=== PATIENT | male | born 1960 | race Caucasian/White ===

== ENCOUNTER → 2016-07-05 | Outpatient (CLI) | payer OTHER ==
--- NOTE | 2016-07-06 07:19 | US ---
EXAMINATION TYPE: US carotid duplex BILAT DATE OF EXAM: 07/05/2016 4:00 PM COMPARISON: NONE CLINICAL HISTORY: I65.29 Occlusion stenosis of unspecified artery. Pt states episode of blurry visi on EXAM MEASUREMENTS: RIGHT: Peak Systolic Velocity (PSV) cm/sec ----- Right CCA: 122.6 ----- Right ICA: 94.3 ----- Right ECA: 123.9 ICA/CCA ratio: 0.8 RIGHT: End Diastole cm/sec ----- Right CCA: 26.7 ----- Right ICA: 35.9 ----- Right ECA: 16.3 LEFT: Peak Systolic Velocity (PSV) cm/sec ----- Left CCA: 131.6 ----- Left ICA: 104.4 ----- Left ECA: 104.4 ICA/CCA ratio: 0.8 LEFT: End Diastole cm/sec ----- Left CCA: 33.2 ----- Left ICA: 37.1 ----- Left ECA: 21.5 VERTEBRALS (direction of flow): Right Vertebral: Antegrade Left Vertebral: Antegrade IMPRESSION: No significant stenosis seen/ Incidental finding right thyroid nodule= 2.1 cm Criteria for Assigning % of Stenosis / Diameter reduction (Estimation based on the indirect measurements of the internal carotid artery velocities (ICA PSV). 1. Normal (no stenosis)=ICA PSV < 125 cm/s: ratio < 2.0: ICA EDV<40 cm/s. 2. Less than 50% stenosis=ICA PSV < 125 cm/s: ratio < 2.0: ICA EDV<40 cm/s. 3. 50 to 69% stenosis=ICA PSV of 125 to 230 cm/s: ration 2.0 ? 4.0: ICA EDV 40-100 cm/s. 4. Greater than 70% stenosis to near occlusion= ICA PSV > 230 cm/s: ratio > 4.0: ICA EDV > 100 cm/s. 5. Near occlusion= ICA PSV velocities may be low or undetectable: variable ratio and ICA EDV. 6. Total occlusion=unable to detect flow.
== END | disposition home or self-care (01) ==
LOC: RADUSWWP 15:28
PROVIDERS: ATTEND Internal Medicine Interventional Cardiology
DX: I65.29 Occlusion and stenosis of unspecified carotid artery (principal)
CPT/HCPCS: 93880

== ENCOUNTER 2016-07-09 14:52 | Emergency (ER) | payer OTHER ==
[2016-07-09 14:58] VITALS: RESP 18
[2016-07-09] MEDS ORDERED: DILTIAZEM 5 MG/ML 5 ML VIAL IVP STA (15:13)
[2016-07-09 15:51] LABS: Basophils # (A) 0.1 k/uL (0-0.2); Basophils % (A) 2 %; CH 31.2; CHCM 33.9; Eosinophils # (A) 0.2 k/uL (0-0.7); Eosinophils % (A) 3 %; HCT 43.9 % (39.0-53.0); HDW 2.61; HGB 14.3 gm/dL (13.0-17.5); Luc # (Auto) 0.07; Luc % (Auto) 1; Lymphocytes # (A) 1.1 k/uL (1.0-4.8); Lymphocytes % (A) 15 %; MCH 30.2 pg (25.0-35.0); MCHC 32.6 g/dL (31.0-37.0); MCV 92.7 fL (80.0-100.0); Mean Platelet Volume 8.4; Monocytes # (A) 0.5 k/uL (0-1.0); Monocytes % (A) 6 %; Neutrophils # (A) 5.7 k/uL (1.3-7.7); Neutrophils % (A) 74 %; RBC 4.73 m/uL (4.30-5.90); RDW 12.9 % (11.5-15.5); WBC 7.7 k/uL (3.8-10.6); WBC (Perox) 7.87
--- NOTE | 2016-07-09 15:54 | XR ---
EXAMINATION TYPE: XR chest 1V portable DATE OF EXAM: 07/09/2016 3:48 PM COMPARISON: 02/27/2016 HISTORY: Chest pain TECHNIQUE: Single frontal view of the chest is obtained. FINDINGS: Heart and mediastinum are normal. Lungs are clear. Diaphragm is normal. Old left clavicle fracture is noted. There are chest leads. IMPRESSION: No active cardiopulmonary disease. No change.
[2016-07-09 16:00] LABS: INR 1.5 (<1.1); Prothrombin Time 14.8 sec (9.0-12.0)
[2016-07-09] MEDS ORDERED: DILTIAZEM 125 MG in SODIUM CHLORIDE 0.9% 100 ML IV SCH (16:00)
[2016-07-09 16:07] LABS: ALT 43 U/L (21-72); AST 24 U/L (17-59); Alkaline Phosphatase 96 U/L (38-126); Anion Gap 14 mmol/L; Blood Urea Nitrogen 22 mg/dL (9-20); Calcium 9.4 mg/dL (8.4-10.2); Carbon Dioxide 20 mmol/L (22-30); Chloride 109 mmol/L (98-107); Glucose 86 mg/dL (74-99); Non-African American GFR(MDRD) >60 (>60 ml/min/1.73 sqM); Potassium 4.4 mmol/L (3.5-5.1); Sodium 143 mmol/L (137-145); Total Bilirubin 1.7 mg/dL (0.2-1.3)
[2016-07-09 16:10] LABS: Creatine Kinase 70 U/L (55-170)
[2016-07-09 16:22] LABS: Creatine Kinase MB 0.6 ng/mL (0.0-2.4); Troponin I <0.012 ng/mL (0.000-0.034)
[2016-07-09] MEDS ORDERED: NITROGLYCERIN SL TABS 0.4 MG TAB SUBLINGUAL PRN (16:57)
--- NOTE | 2016-07-09 17:00 | ED ---
Arrhythmia/Palpitations HPI - General Chief Complaint: Arrhythmia/Palpitations Stated Complaint: chest pain Time Seen by Provider: 07/09/16 15:12 Source: patient, RN notes reviewed Mode of arrival: wheelchair Limitations: no limitations - History of Present Illness MD Complaint: rapid heart beat -: hour(s) Context: occurred during rest Arrhythmia History: atrial fibrillation, on anti-coagulants Associated Symptoms: shortness of breath - Related Data Home Medications Medication Instructions Recorded Confirmed Warfarin Sodium [Coumadin] 5 mg PO HS 02/27/16 07/09/16 Previous Rx's Medication Instructions Recorded Metoprolol Tartrate [Lopressor] 50 mg PO BID #60 tab 02/28/16 Allergies Allergy/AdvReac Type Severity Reaction Status Date / Time No Known Allergies Allergy Verified 07/09/16 15:15 Review of Systems ROS Statement: Those systems with pertinent positive or pertinent negative responses have been documented in the HPI. ROS Other: All systems not noted in ROS Statement are negative. Constitutional: Denies: fever, chills, weakness Respiratory: Reports: dyspnea. Denies: cough Cardiovascular: Reports: palpitations. Denies: chest pain, edema, syncope Gastrointestinal: Denies: abdominal pain, nausea, vomiting Genitourinary: Denies: dysuria, frequency, hematuria Musculoskeletal: Denies: back pain Skin: Denies: rash Neurological: Denies: headache Past Medical History Past Medical History: Atrial Fibrillation, Pneumonia Additional Past Medical History / Comment(s): 20 years ago - collapsed lung, chest tube, PNE YEARS AGO, MIGRAINES WHEN YOUNGER History of Any Multi-Drug Resistant Organisms: None Reported Past Surgical History: No Surgical Hx Reported Additional Past Surgical History / Comment(s): C/T PLACEMENT Past Anesthesia/Blood Transfusion Reactions: No Reported Reaction Past Psychological History: No Psychological Hx Reported Additional Psychological History / Comment(s): PT LIVES ALONE, NO SERVICE, 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 PT IS INDEPENDANT AND NO OUTSIDE SERVICES. Smoking Status: Never smoker Past Alcohol Use History: Occasional Past Drug Use History: None Reported - Past Family History Father Family Medical History: Unable to Obtain Additional Family Medical History / Comment(s): . Mother Family Medical History: Deep Vein Thrombosis (DVT) General Exam Limitations: no limitations General appearance: alert, in no apparent distress Head exam: Present: atraumatic, normocephalic Eye exam: Present: normal appearance. Absent: scleral icterus, conjunctival injection ENT exam: Present: normal oropharynx Neck exam: Present: normal inspection, full ROM Respiratory exam: Present: normal lung sounds bilaterally. Absent: respiratory distress, wheezes, rales, rhonchi Cardiovascular Exam: Present: tachycardia, irregular rhythm, normal heart sounds. Absent: systolic murmur, diastolic murmur, rubs, gallop GI/Abdominal exam: Present: soft. Absent: distended, tenderness, guarding, rebound Extremities exam: Present: normal inspection, normal capillary refill. Absent: pedal edema, calf tenderness Back exam: Present: normal inspection. Absent: CVA tenderness (R), CVA tenderness (L) Neurological exam: Present: alert Skin exam: Present: warm, dry, intact, normal color. Absent: rash Course Vital Signs 07/09/16 07/09/16 14:55 17:22 Temperature 98.0 F 98.2 F Pulse Rate 79 67 Respiratory 18 18 Rate Blood Pressure 141/93 125/80 O2 Sat by Pulse 91 L Oximetry EKG Findings - EKG Results: EKG: interpreted by SEGUNDO, normal axis EKG shows: atrial fibrillation (Rate approximately 125 bpm) - Blocks, [place], Hypertrophy, ST Abn: Repolarization changes or abnormalities: nonspecific abnormality, ST segment, and/or T wave Medical Decision Making - Medical Decision Making This patient is a 55-year-old man who presents with a rapid ventricular rate for his atrial fibrillation. He did receive Cardizem here and following that was feeling better area stated that all of his symptoms had resolved. He does remain in A. fib but with a rate in the 60s to 80s. He did request to be discharged. Discussed with the patient that his INR is a touch low at 1.5 and recommended he take an extra dose of his Coumadin. Patient also to discuss with cardiology. Discussed return parameters. - Lab Data Result diagrams: 07/09/16 15:30 07/09/16 15:30 Lab Results 07/09/16 07/09/16 07/09/16 Range/Units 15:30 15:30 15:30 WBC 7.7 (3.8-10.6) k/uL RBC 4.73 (4.30-5.90) m/uL Hgb 14.3 (13.0-17.5) gm/dL Hct 43.9 (39.0-53.0) % MCV 92.7 (80.0-100.0) fL MCH 30.2 (25.0-35.0) pg MCHC 32.6 (31.0-37.0) g/dL RDW 12.9 (11.5-15.5) % Plt Count 308 (150-450) k/uL Neutrophils % 74 % Lymphocytes % 15 % Monocytes % 6 % Eosinophils % 3 % Basophils % 2 % Neutrophils # 5.7 (1.3-7.7) k/uL Lymphocytes # 1.1 (1.0-4.8) k/uL Monocytes # 0.5 (0-1.0) k/uL Eosinophils # 0.2 (0-0.7) k/uL Basophils # 0.1 (0-0.2) k/uL PT (9.0-12.0) sec INR (<1.1) APTT (22.0-30.0) sec Sodium 143 (137-145) mmol/L Potassium 4.4 (3.5-5.1) mmol/L Chloride 109 H (98-107) mmol/L Carbon Dioxide 20 L (22-30) mmol/L Anion Gap 14 mmol/L BUN 22 H (9-20) mg/dL Creatinine 0.88 (0.66-1.25) mg/dL Est GFR (MDRD) Af Amer >60 (>60 ml/min/1.73 sqM) Est GFR (MDRD) Non-Af >60 (>60 ml/min/1.73 sqM) Glucose 86 (74-99) mg/dL Calcium 9.4 (8.4-10.2) mg/dL Magnesium 2.0 (1.6-2.3) mg/dL Total Bilirubin 1.7 H (0.2-1.3) mg/dL AST 24 (17-59) U/L ALT 43 (21-72) U/L Alkaline Phosphatase 96 (38-126) U/L Total Creatine Kinase 70 (55-170) U/L CK-MB (CK-2) 0.6 (0.0-2.4) ng/mL CK-MB (CK-2) Rel Index 0.9 Troponin I <0.012 (0.000-0.034) ng/mL Total Protein 7.0 (6.3-8.2) g/dL Albumin 4.2 (3.5-5.0) g/dL 07/09/16 Range/Units 15:30 WBC (3.8-10.6) k/uL RBC (4.30-5.90) m/uL Hgb (13.0-17.5) gm/dL Hct (39.0-53.0) % MCV (80.0-100.0) fL MCH (25.0-35.0) pg MCHC (31.0-37.0) g/dL RDW (11.5-15.5) % Plt Count (150-450) k/uL Neutrophils % % Lymphocytes % % Monocytes % % Eosinophils % % Basophils % % Neutrophils # (1.3-7.7) k/uL Lymphocytes # (1.0-4.8) k/uL Monocytes # (0-1.0) k/uL Eosinophils # (0-0.7) k/uL Basophils # (0-0.2) k/uL PT 14.8 H (9.0-12.0) sec INR 1.5 (<1.1) APTT 28.0 (22.0-30.0) sec Sodium (137-145) mmol/L Potassium (3.5-5.1) mmol/L Chloride (98-107) mmol/L Carbon Dioxide (22-30) mmol/L Anion Gap mmol/L BUN (9-20) mg/dL Creatinine (0.66-1.25) mg/dL Est GFR (MDRD) Af Amer (>60 ml/min/1.73 sqM) Est GFR (MDRD) Non-Af (>60 ml/min/1.73 sqM) Glucose (74-99) mg/dL Calcium (8.4-10.2) mg/dL Magnesium (1.6-2.3) mg/dL Total Bilirubin (0.2-1.3) mg/dL AST (17-59) U/L ALT (21-72) U/L Alkaline Phosphatase (38-126) U/L Total Creatine Kinase (55-170) U/L CK-MB (CK-2) (0.0-2.4) ng/mL CK-MB (CK-2) Rel Index Troponin I (0.000-0.034) ng/mL Total Protein (6.3-8.2) g/dL Albumin (3.5-5.0) g/dL Disposition Clinical Impression: Atrial fibrillation with RVR Disposition: ADMITTED IP TO THIS HOSP Condition: Fair Instructions: Atrial Fibrillation (ED) Referrals: Bertha Olea MD [Primary Care Provider] - 1-2 days
[2016-07-09 17:23] VITALS: BP 125/80; PULSE 67; TEMP 98.2
[2016-07-09] MEDS ORDERED: WARFARIN 5 MG TAB PO SCH (21:00)
[2016-07-09] MEDS ORDERED: METOPROLOL TARTRATE 50 MG TAB PO SCH (21:00)
[2016-07-10] MEDS ORDERED: ASPIRIN 325 MG TAB PO SCH (09:00)
== END 2016-07-09 17:22 | disposition other institution (70) ==
LOC: EC 14:52
DX: I48.91 Unspecified atrial fibrillation (principal); Z79.01 Long term (current) use of anticoagulants; Z79.899 Other long term (current) drug therapy
CPT/HCPCS: 36415; 71010; 80053; 82550; 82553; 83735; 84484; 85025; 85610; 85730; 93005; 96365; 96366; 96376; 99285

== ENCOUNTER 2016-09-20 05:52 | Day surgery (SDC) | payer OTHER ==
[2016-09-20 06:38] LABS: Basophils # (A) 0.1 k/uL (0-0.2); Basophils % (A) 1 %; CH 30.6; CHCM 33.8; Eosinophils # (A) 0.3 k/uL (0-0.7); Eosinophils % (A) 5 %; HCT 41.6 % (39.0-53.0); HDW 2.55; HGB 14.3 gm/dL (13.0-17.5); Luc # (Auto) 0.11; Luc % (Auto) 2; Lymphocytes # (A) 1.2 k/uL (1.0-4.8); Lymphocytes % (A) 20 %; MCH 31.1 pg (25.0-35.0); MCHC 34.3 g/dL (31.0-37.0); MCV 90.8 fL (80.0-100.0); Mean Platelet Volume 7.6; Monocytes # (A) 0.4 k/uL (0-1.0); Monocytes % (A) 7 %; Neutrophils # (A) 3.7 k/uL (1.3-7.7); Neutrophils % (A) 65 %; RBC 4.59 m/uL (4.30-5.90); RDW 13.3 % (11.5-15.5); WBC 5.7 k/uL (3.8-10.6); WBC (Perox) 5.58
[2016-09-20 06:43] LABS: INR 3.9 (<1.1); Prothrombin Time 37.7 sec (9.0-12.0)
[2016-09-20] MEDS: SODIUM CHLORIDE 0.9% 1,000 ML IV SCH (06:50)
[2016-09-20] MEDS ORDERED: ePHEDrine 50 MG/ML 1 ML AMP ONE (07:21)
[2016-09-20] MEDS ORDERED: LIDOCAINE 1% INJ 10MG/ML (20 ML MDV) ONE (07:21)
[2016-09-20] MEDS ORDERED: PROTAMINE SULFATE 10 MG/ML 5 ML VIAL IV ONE (07:21)
[2016-09-20] MEDS ORDERED: SUCCINYLCHOLINE CHLORIDE 100 MG/5 ML SYR IV ONE (07:21)
[2016-09-20] MEDS ORDERED: ISOPROTERENOL 250 MCG/1.25 ML SYR IV ONE (07:21)
[2016-09-20] MEDS ORDERED: MIDAZOLAM 2 MG/2 ML VIAL ONE (07:21)
[2016-09-20] MEDS ORDERED: PROPOFOL 10 MG/ML 20 ML VIAL IV ONE (07:21)
[2016-09-20] MEDS ORDERED: ATROPINE SULFATE 0.1 MG/ML 10ML SYRINGE ONE (07:21)
[2016-09-20] MEDS ORDERED: HEPARIN SODIUM,PORCINE 5,000 UNIT/ML 1 ML VIAL ONE (07:21)
[2016-09-20] MEDS ORDERED: fentaNYL (PF) 50 MCG/ML 2 ML AMP ONE (07:21)
[2016-09-20 07:27] LABS: Anion Gap 8 mmol/L; Blood Urea Nitrogen 23 mg/dL (9-20); Calcium 9.1 mg/dL (8.4-10.2); Carbon Dioxide 25 mmol/L (22-30); Chloride 106 mmol/L (98-107); Glucose 98 mg/dL (74-99); Non-African American GFR(MDRD) >60 (>60 ml/min/1.73 sqM); Sodium 139 mmol/L (137-145)
[2016-09-20] MEDS ORDERED: LIDOCAINE 2% INJ 20 MG/ML SQ ONE (08:14)
[2016-09-20] MEDS ORDERED: HEPARIN SODIUM,PORCINE/D5W PMX 25,000 UNIT in DEXTROSE/WATER 1 500ML.BAG IV ONE (08:36)
[2016-09-20] MEDS ORDERED: ACETAMINOPHEN TAB 325 MG TAB PO PRN (11:04)
[2016-09-20] MEDS ORDERED: ACETAMINOPHEN IV (For NPO) 1,000 MG in EMPTY BAG 1 BAG IVPB ONE (11:04)
[2016-09-20] MEDS ORDERED: HYDROcodone/APAP 5-325MG 1 EACH TAB PO PRN (11:04)
[2016-09-20] MEDS ORDERED: IOHEXOL 350 MG/ML 100 ML BOTTLE INJ ONE (11:23)
--- NOTE | 2016-09-20 11:41 | P.PCN ---
Preoperative Diagnosis: Procedure Diagnostic EP study followed by pulmonary vein isolation, cryoablation. Indication for procedure Recurrent paroxysmal atrial fibrillation, sick sinus syndrome sinus bradycardia in the 40s-50s Unable to tolerate antiarrhythmic drug therapy Therapeutic anticoagulation on Coumadin Procedure details General anesthesia Venous sheaths in the right and left femoral veins 5-[place]i arterial for hemodynamic monitoring and sampling. Heparin infusion and bolus given. ACT maintained above 300. Patient remained stable through the procedure. Sheaths removed at the end of the procedure after protamine Diagnostic catheters in the high right atrium, His bundle area, RV, coronary sinus Later intracardiac echo catheter for visualizing interatrial septum and the pulmonary veins and pericardium Transseptal access to the left atrium using 55 heart span,, 60 cm Exchange wire Flex sheath for cryoablation placed under fluoroscopic guidance Catheter with cryo-balloon placed in left atrium Pulmonary venous angiogram performed for each occlusion to document complete occlusion with cryo-balloon, prior to cryoablation Pulmonary veins were isolated in the following sequence: Left superior pulmonary vein followed by left inferior pulmonary vein followed by right superior and right inferior pulmonary veins. Phrenic nerve stimulation above the right pulmonary veins to assess diaphragmatic contractions, manually as well as with diaphragmatic signals Integrity of the phrenic nerve checked after each cryoablation for the right- sided veins and at the very end of the procedure Diagnostic EP study performed on and off Isuprel Sinus cycle length 1350 ms, ID interval 89 ms, QRS 99 ms, QT interval 500 ms, AH 56, HV 30 Sinus recovery times at 600 504 100 ms were 2048, 2087 and 889 ms Corrected sinus node recovery times a prolonged VA Wenckebach block 390 ms. AV node Wenckebach block from the coronary sinus 400 ms, improved on Isuprel to 280 ms AV node ERP from the coronary sinus 600/320 ms and 600/320/340 ms High right atrial pacing on Isuprel, atrial fibrillation induced and electrical cardioversion performed. Left and right transseptal catheterization performed. Right atrial pressures 21 /15 mmHg and LA pressures 23/10 mmHg Cryoablation of the left superior pulmonary veins Single application for 240 seconds. Parameters achieved were -30C and 28 seconds and -40C at 65 seconds and peak negative temperature was -46C. Thaw time 8.4 seconds. Isolation visualized during cryoablation using achieve circular catheter Cryoablation of the left inferior pulmonary veins Single application, complete isolation achieved in 105 sec, total application time 240 seconds Parameters achieved: -30C at 28 seconds, -40C at 60 seconds Peak negative temperature -48C. Thaw time 9.3 seconds Vein was completely isolated Cryoablation of the right inferior pulmonary vein, multiple repositionings required, hockey-stick approach also used. First prior application aborted at 39 seconds since -27C achieved at 39 seconds Second cryo-application of 120 seconds. Parameters achieved were -24C at 30 seconds and -30 at 90 seconds. Therefore aborted at 2 minutes. Third application of 180 seconds, -30C at 30 seconds and -40 at 88 seconds with a peak negativity of -43C. But the thaw time was 5 seconds Therefore afford application was applied after ensuring that all remained potentials were still present. This was performed after the right superior vein was successfully isolated thereby allowing for a delay in time For the application of 180 seconds. Excellent parameters achieved including - 30 and 34 seconds and -36C at 60 seconds and a peak negative temperature of -41 /2. Thaw time of 9 seconds Vein was completely isolated Cryoablation of right superior pulmonary vein. First application of 120 seconds prematurely terminated. Parameters achieved -30C at 33 seconds and -37 C at 100 seconds with a peak negative temperature of -38C. Thaw time 8.1 seconds Second application of 240 seconds did parameters achieved included -30C 25 seconds and -40C at 40 seconds and peak negativity at -55C. Thaw time of 12 seconds Complete isolation documented Phrenic nerve interrogated during and at the end of the procedure. Phrenic nerve intact Patient tolerated the procedure well without any acute complications he was extubated and transferred to the recovery unit Result Successful cryoablation of all 4 pulmonary veins with documented entrance block and complete isolation, visualized during the procedure Procedures performed Hemodynamic monitoring and sampling via right femoral arterial sheath Comprehensive diagnostic EP study with attempted arrhythmia induction Coronary sinus pacing and recording Programmed stimulation following Isuprel Left and right transseptal catheterization Intracardiac echocardiography Conventional mapping of arrhythmia Pulmonary vein isolation-cryoablation Anesthesia: GETA Condition: stable Disposition: floor
[2016-09-20 17:57] VITALS: BMI 28.8
[2016-09-21 06:50] LABS: INR 2.8 (<1.1); Prothrombin Time 27.1 sec (9.0-12.0)
[2016-09-21] MEDS: SODIUM CHLORIDE 0.9% 1,000 ML IV SCH (07:15)
[2016-09-21 08:20] VITALS: PULSE 72; RESP 16
--- NOTE | 2016-09-21 08:29 | PN ---
Mr. Hdz is doing well. He denies any chest discomfort, dizziness, lightheadedness. He has been ambulating in the hallways. He has no groin pain. No swelling in the groin. On examination, he is afebrile, 96.7 degrees Fahrenheit. Blood pressure on 128/81 mmHg, heart rate in the 50s. Head and neck examination is normal. No JVD, thyromegaly or carotid bruits. Heart sounds S1, S2 are normal. No murmurs or gallops. Breath sounds are normal. No rhonchi. No crackles. Abdomen is soft, nontender. Groin sounds were evaluated. Both groins looked fine. There is no hematoma, no swelling and no tenderness. IMPRESSION: 1. Paroxysmal atrial fibrillation, status post successful cryoablation/pulmonary vein isolation of all 4 veins without any acute complications. 2. Sick sinus syndrome, dose of metoprolol was reduced to 25 mg twice daily. PLAN: 1. Continue Coumadin 5 mg p.o. daily. 2. Follow up in 5 days in the office with Dr. Dotson for PT, INR check and a groin check. 3. Reduced metoprolol to 25 mg twice daily.
[2016-09-21 12:21] VITALS: BP 140/88; TEMP 98.2
== END 2016-09-21 13:14 | disposition home or self-care (01) ==
LOC: CATHEP 05:52 → 6SEL 10:55 → CATHEP 09-21 13:14
PROVIDERS: ATTEND Internal Medicine Clinical Cardiac Electrophysiology
DX: I48.0 Paroxysmal atrial fibrillation (principal); I49.5 Sick sinus syndrome; I10 Essential (primary) hypertension; Z79.01 Long term (current) use of anticoagulants; Z79.899 Other long term (current) drug therapy
CPT/HCPCS: 85347; 93623; 93662; 93609; 93656; 80048; 85025; 85610 ×2; C1894 ×3; C1769 ×4; C1730 ×4; C1759; C1893; C1733; C1766; J2001; Q9967; J1644; J0131

== ENCOUNTER 2017-07-01 04:24 | Inpatient (IN) | payer OTHER ==
[2017-07-01] MEDS ORDERED: IBUPROFEN 600 MG TAB PO STA (04:33)
[2017-07-01] MEDS ORDERED: ACETAMINOPHEN TAB 500 MG TAB PO STA (04:33)
--- NOTE | 2017-07-01 04:35 | ED ---
General Adult HPI - General Chief complaint: Shortness of Breath Stated complaint: SOB/Dizziness Time Seen by Provider: 07/01/17 04:24 Source: patient, RN notes reviewed Mode of arrival: wheelchair Limitations: no limitations - History of Present Illness Initial comments: This is a 56-year-old male who presents emergency Department complaining that for the last day and a half he has had shortness of breath cough and a fever. Patient states he did not get the flu shot. Patient states she has not had much sputum production. Patient denies any smoking history. Patient denies any abdominal pain patient denies nausea vomiting diarrhea. Patient denies headache patient denies numbness weakness. Patient states he does feel somewhat dizzy or lightheaded on occasion. Patient denies any near syncopal episode. - Related Data Home Medications Medication Instructions Recorded Confirmed No Known Home Medications [No 07/01/17 07/01/17 Known Home Medications] Allergies Allergy/AdvReac Type Severity Reaction Status Date / Time No Known Allergies Allergy Verified 07/01/17 04:28 Review of Systems ROS Statement: Those systems with pertinent positive or pertinent negative responses have been documented in the HPI. ROS Other: All systems not noted in ROS Statement are negative. Past Medical History Past Medical History: Atrial Fibrillation, Pneumonia Additional Past Medical History / Comment(s): 20 years ago - collapsed lung, chest tube History of Any Multi-Drug Resistant Organisms: None Reported Past Surgical History: No Surgical Hx Reported Additional Past Surgical History / Comment(s): C/T PLACEMENT Past Anesthesia/Blood Transfusion Reactions: No Reported Reaction Past Psychological History: No Psychological Hx Reported Smoking Status: Never smoker Past Alcohol Use History: Occasional Past Drug Use History: None Reported - Past Family History Father Family Medical History: Unable to Obtain Additional Family Medical History / Comment(s): . Mother Family Medical History: Deep Vein Thrombosis (DVT) General Exam - General Exam Comments Initial Comments: GENERAL: Patient is well-developed and well-nourished. Patient is nontoxic and well- hydrated and is in mild distress. ENT: Neck is soft and supple. No significant lymphadenopathy is noted. Oropharynx is clear. Moist mucous membranes. Neck has full range of motion without eliciting any pain. EYES: The sclera were anicteric and conjunctiva were pink and moist. Extraocular movements were intact and pupils were equal round and reactive to light. Eyelids were unremarkable. PULMONARY: Patient has crackles on the right side. CARDIOVASCULAR: There is a regular rate and rhythm without any murmurs gallops or rubs. ABDOMEN: Soft and nontender with normal bowel sounds. No palpable organomegaly was noted. There is no palpable pulsatile mass. SKIN: Skin is clear with no lesions or rashes and otherwise unremarkable. NEUROLOGIC: Patient is alert and oriented x3. Cranial nerves II through XII are grossly intact. Motor and sensory are also intact. Normal speech, volume and content. Symmetrical smile. MUSCULOSKELETAL: Normal extremities with adequate strength and full range of motion. No lower extremity swelling or edema. No calf tenderness. LYMPHATICS: No significant lymphadenopathy is noted PSYCHIATRIC: Normal psychiatric evaluation. Normal interpersonal interactions appears functionally intact in deals appropriately with others. No signs of depression. No signs of anxiety. Limitations: no limitations Course Vital Signs 07/01/17 07/01/17 04:24 05:41 Temperature 101.2 F H 101 F H Pulse Rate 98 75 Respiratory 20 16 Rate Blood Pressure 172/102 151/91 O2 Sat by Pulse 92 L 95 Oximetry Medical Decision Making - Medical Decision Making EKG shows normal sinus rhythm at 84 bpm [place] interval is 118 QRS is 90 QT interval 368 QTC is 434. Patient's EKG shows some T-wave inversions in II, III , and F aVF as well as V5 3 through V6 Chest x-ray shows no acute abnormality I gave the patient Tamiflu because his flu test came up influenza a. I went back and reexamined the patient he felt no better. Patient still has crackles in the right base. Patient also had changes in his EKG and he describes a funny feeling in his chest at this time so I kept the patient to repeat cardiacs and monitors respirations - Lab Data Result diagrams: 07/01/17 04:45 07/01/17 04:45 Lab Results 07/01/17 07/01/17 07/01/17 Range/Units 04:45 04:45 04:45 WBC 7.8 (3.8-10.6) k/uL RBC 4.58 (4.30-5.90) m/uL Hgb 13.9 (13.0-17.5) gm/dL Hct 41.2 (39.0-53.0) % MCV 90.0 (80.0-100.0) fL MCH 30.4 (25.0-35.0) pg MCHC 33.8 (31.0-37.0) g/dL RDW 13.8 (11.5-15.5) % Plt Count 228 (150-450) k/uL Neutrophils % 89 % Lymphocytes % 5 % Monocytes % 4 % Eosinophils % 1 % Basophils % 1 % Neutrophils # 6.9 (1.3-7.7) k/uL Lymphocytes # 0.4 L (1.0-4.8) k/uL Monocytes # 0.3 (0-1.0) k/uL Eosinophils # 0.1 (0-0.7) k/uL Basophils # 0.0 (0-0.2) k/uL PT (9.0-12.0) sec INR (<1.2) APTT (22.0-30.0) sec Sodium 140 (137-145) mmol/L Potassium 4.0 (3.5-5.1) mmol/L Chloride 103 (98-107) mmol/L Carbon Dioxide 24 (22-30) mmol/L Anion Gap 13 mmol/L BUN 18 (9-20) mg/dL Creatinine 0.90 (0.66-1.25) mg/dL Est GFR (MDRD) Af Amer >60 (>60 ml/min/1.73 sqM) Est GFR (MDRD) Non-Af >60 (>60 ml/min/1.73 sqM) Glucose 131 H (74-99) mg/dL Plasma Lactic Acid [place] (0.7-2.0) mmol/L Calcium 9.5 (8.4-10.2) mg/dL Total Bilirubin 0.9 (0.2-1.3) mg/dL AST 24 (17-59) U/L ALT 39 (21-72) U/L Alkaline Phosphatase 105 (38-126) U/L Total Creatine Kinase (55-170) U/L CK-MB (CK-2) (0.0-2.4) ng/mL CK-MB (CK-2) Rel Index Troponin I (0.000-0.034) ng/mL Total Protein 6.9 (6.3-8.2) g/dL Albumin 4.2 (3.5-5.0) g/dL Urine Color Urine Appearance (Clear) Urine pH (5.0-8.0) Ur Specific [place] (1.001-1.035) Urine Protein (Negative) Urine Glucose (UA) (Negative) Urine Ketones (Negative) Urine Blood (Negative) Urine Nitrite (Negative) Urine Bilirubin (Negative) Urine Urobilinogen (<2.0) mg/dL Ur Leukocyte Esterase (Negative) Influenza Type A RNA Detected H (Not Detectd) Influenza Type B (PCR) Not Detected (Not Detectd) 07/01/17 07/01/17 07/01/17 Range/Units 04:45 04:45 04:45 WBC (3.8-10.6) k/uL RBC (4.30-5.90) m/uL Hgb (13.0-17.5) gm/dL Hct (39.0-53.0) % MCV (80.0-100.0) fL MCH (25.0-35.0) pg MCHC (31.0-37.0) g/dL RDW (11.5-15.5) % Plt Count (150-450) k/uL Neutrophils % % Lymphocytes % % Monocytes % % Eosinophils % % Basophils % % Neutrophils # (1.3-7.7) k/uL Lymphocytes # (1.0-4.8) k/uL Monocytes # (0-1.0) k/uL Eosinophils # (0-0.7) k/uL Basophils # (0-0.2) k/uL PT 10.5 (9.0-12.0) sec INR 1.1 (<1.2) APTT 26.2 (22.0-30.0) sec Sodium (137-145) mmol/L Potassium (3.5-5.1) mmol/L Chloride (98-107) mmol/L Carbon Dioxide (22-30) mmol/L Anion Gap mmol/L BUN (9-20) mg/dL Creatinine (0.66-1.25) mg/dL Est GFR (MDRD) Af Amer (>60 ml/min/1.73 sqM) Est GFR (MDRD) Non-Af (>60 ml/min/1.73 sqM) Glucose (74-99) mg/dL Plasma Lactic Acid [place] 1.1 (0.7-2.0) mmol/L Calcium (8.4-10.2) mg/dL Total Bilirubin (0.2-1.3) mg/dL AST (17-59) U/L ALT (21-72) U/L Alkaline Phosphatase (38-126) U/L Total Creatine Kinase (55-170) U/L CK-MB (CK-2) (0.0-2.4) ng/mL CK-MB (CK-2) Rel Index Troponin I (0.000-0.034) ng/mL Total Protein (6.3-8.2) g/dL Albumin (3.5-5.0) g/dL Urine Color Yellow Urine Appearance Clear (Clear) Urine pH 6.5 (5.0-8.0) Ur Specific [place] 1.021 (1.001-1.035) Urine Protein Trace H (Negative) Urine Glucose (UA) 3+ H (Negative) Urine Ketones 2+ H (Negative) Urine Blood Negative (Negative) Urine Nitrite Negative (Negative) Urine Bilirubin Negative (Negative) Urine Urobilinogen 2.0 (<2.0) mg/dL Ur Leukocyte Esterase Negative (Negative) Influenza Type A RNA (Not Detectd) Influenza Type B (PCR) (Not Detectd) 07/01/17 Range/Units 04:45 WBC (3.8-10.6) k/uL RBC (4.30-5.90) m/uL Hgb (13.0-17.5) gm/dL Hct (39.0-53.0) % MCV (80.0-100.0) fL MCH (25.0-35.0) pg MCHC (31.0-37.0) g/dL RDW (11.5-15.5) % Plt Count (150-450) k/uL Neutrophils % % Lymphocytes % % Monocytes % % Eosinophils % % Basophils % % Neutrophils # (1.3-7.7) k/uL Lymphocytes # (1.0-4.8) k/uL Monocytes # (0-1.0) k/uL Eosinophils # (0-0.7) k/uL Basophils # (0-0.2) k/uL PT (9.0-12.0) sec INR (<1.2) APTT (22.0-30.0) sec Sodium (137-145) mmol/L Potassium (3.5-5.1) mmol/L Chloride (98-107) mmol/L Carbon Dioxide (22-30) mmol/L Anion Gap mmol/L BUN (9-20) mg/dL Creatinine (0.66-1.25) mg/dL Est GFR (MDRD) Af Amer (>60 ml/min/1.73 sqM) Est GFR (MDRD) Non-Af (>60 ml/min/1.73 sqM) Glucose (74-99) mg/dL Plasma Lactic Acid [place] (0.7-2.0) mmol/L Calcium (8.4-10.2) mg/dL Total Bilirubin (0.2-1.3) mg/dL AST (17-59) U/L ALT (21-72) U/L Alkaline Phosphatase (38-126) U/L Total Creatine Kinase 49 L (55-170) U/L CK-MB (CK-2) <0.2 (0.0-2.4) ng/mL CK-MB (CK-2) Rel Index Troponin I <0.012 (0.000-0.034) ng/mL Total Protein (6.3-8.2) g/dL Albumin (3.5-5.0) g/dL Urine Color Urine Appearance (Clear) Urine pH (5.0-8.0) Ur Specific [place] (1.001-1.035) Urine Protein (Negative) Urine Glucose (UA) (Negative) Urine Ketones (Negative) Urine Blood (Negative) Urine Nitrite (Negative) Urine Bilirubin (Negative) Urine Urobilinogen (<2.0) mg/dL Ur Leukocyte Esterase (Negative) Influenza Type A RNA (Not Detectd) Influenza Type B (PCR) (Not Detectd) Disposition Clinical Impression: Influenza A, Acute electrocardiogram changes Disposition: ADMITTED IP TO THIS HOSP Referrals: Bertha Olea MD [Primary Care Provider] - 1-2 days Time of Disposition: 05:54
[2017-07-01] MEDS ORDERED: IPRATROPIUM-ALBUTEROL 3 ML NEB INHALATION STA (04:36)
[2017-07-01] MEDS: SODIUM CHLORIDE 0.9% 500 ML IV SCH ×2 (04:49→05:15)
[2017-07-01 05:04] LABS: Basophils % (A) 1 %; Eosinophils # (A) 0.1 k/uL (0-0.7); Eosinophils % (A) 1 %; HCT 41.2 % (39.0-53.0); HGB 13.9 gm/dL (13.0-17.5); Lymphocytes # (A) 0.4 k/uL (1.0-4.8); Lymphocytes % (A) 5 %; MCH 30.4 pg (25.0-35.0); MCHC 33.8 g/dL (31.0-37.0); Mean Platelet Volume 7.9; Monocytes # (A) 0.3 k/uL (0-1.0); Monocytes % (A) 4 %; Neutrophils # (A) 6.9 k/uL (1.3-7.7); Neutrophils % (A) 89 %; Platelet Count 228 k/uL (150-450); RBC 4.58 m/uL (4.30-5.90); RDW 13.8 % (11.5-15.5); WBC 7.8 k/uL (3.8-10.6)
[2017-07-01 05:06] LABS: Appearance,Urine Clear (Clear); Bilirubin,Urine Negative (Negative); Blood,Urine Negative (Negative); Color,Urine Yellow; Glucose,Urine (UA) 3+ (Negative); Leukocyte Esterase,Urine Negative (Negative); Nitrite,Urine Negative (Negative); PH, Urine 6.5 (5.0-8.0); Protein,Urine Trace (Negative); Specific Gravity,Urine 1.021 (1.001-1.035)
[2017-07-01 05:13] LABS: INR 1.1 (<1.2); Partial Thromboplastin Time 26.2 sec (22.0-30.0); Prothrombin Time 10.5 sec (9.0-12.0)
[2017-07-01 05:15] LABS: ALT 39 U/L (21-72); AST 24 U/L (17-59); Albumin 4.2 g/dL (3.5-5.0); Alkaline Phosphatase 105 U/L (38-126); Anion Gap 13 mmol/L; Blood Urea Nitrogen 18 mg/dL (9-20); Calcium 9.5 mg/dL (8.4-10.2); Carbon Dioxide 24 mmol/L (22-30); Chloride 103 mmol/L (98-107); Glucose 131 mg/dL (74-99); Sodium 140 mmol/L (137-145); Total Bilirubin 0.9 mg/dL (0.2-1.3); Total Protein 6.9 g/dL (6.3-8.2)
--- NOTE | 2017-07-01 05:16 | XR ---
EXAM: XR Chest, 2 Views CLINICAL HISTORY: Reason: Fever TECHNIQUE: Frontal and lateral views of the chest. COMPARISON: Chest x-ray dated 07/09/2016. FINDINGS: Lungs: Unremarkable. The lungs are clear. Pleural space: Unremarkable. No pneumothorax. Heart: Unremarkable. No cardiomegaly. Mediastinum: Unremarkable. Bones/joints: Unremarkable. IMPRESSION: Normal chest x-rays.
[2017-07-01] MEDS ORDERED: OSELTAMIVIR 75 MG CAP PO STA (05:22)
[2017-07-01 05:27] LABS: Ketones,Urine 2+ (Negative)
[2017-07-01 05:32] LABS: Creatine Kinase 49 U/L (55-170)
[2017-07-01 05:45] LABS: Creatine Kinase MB <0.2 ng/mL (0.0-2.4); Troponin I <0.012 ng/mL (0.000-0.034)
[2017-07-01] MEDS ORDERED: SODIUM CHLORIDE 0.9% 1,000 ML IV ONE (05:54)
[2017-07-01] MEDS: IPRATROPIUM-ALBUTEROL 3 ML NEB INHALATION SCH ×4 (08:35→21:09)
[2017-07-01 09:35] VITALS: BMI 25.1
[2017-07-01] MEDS: HYDROcodone/APAP 5-325MG 1 EACH TAB PO PRN ×2 (10:20→16:45)
[2017-07-01] MEDS: OSELTAMIVIR 75 MG CAP PO SCH (21:32)
[2017-07-02 06:43] LABS: Basophils % (A) 0 %; Eosinophils % (A) 0 %; HCT 37.7 % (39.0-53.0); HGB 12.7 gm/dL (13.0-17.5); Lymphocytes # (A) 0.8 k/uL (1.0-4.8); Lymphocytes % (A) 11 %; MCH 30.7 pg (25.0-35.0); MCHC 33.8 g/dL (31.0-37.0); MCV 90.9 fL (80.0-100.0); Mean Platelet Volume 7.9; Monocytes # (A) 0.5 k/uL (0-1.0); Monocytes % (A) 6 %; Neutrophils # (A) 6.6 k/uL (1.3-7.7); Neutrophils % (A) 82 %; Platelet Count 173 k/uL (150-450); RBC 4.15 m/uL (4.30-5.90); RDW 13.2 % (11.5-15.5)
[2017-07-02 07:00] LABS: ALT 36 U/L (21-72); AST 29 U/L (17-59); Albumin 3.1 g/dL (3.5-5.0); Alkaline Phosphatase 71 U/L (38-126); Anion Gap 8 mmol/L; Blood Urea Nitrogen 10 mg/dL (9-20); Calcium 8.8 mg/dL (8.4-10.2); Carbon Dioxide 25 mmol/L (22-30); Chloride 104 mmol/L (98-107); Glucose 99 mg/dL (74-99); Potassium 4.2 mmol/L (3.5-5.1); Sodium 137 mmol/L (137-145); Total Bilirubin 0.7 mg/dL (0.2-1.3); Total Protein 5.6 g/dL (6.3-8.2)
[2017-07-02] MEDS: IPRATROPIUM-ALBUTEROL 3 ML NEB INHALATION SCH ×4 (08:13→19:12)
[2017-07-02] MEDS: OSELTAMIVIR 75 MG CAP PO SCH ×2 (09:21→20:35)
--- NOTE | 2017-07-02 11:02 | P.CRDCN ---
History of Present Illness History of present illness: Patient admitted with flulike symptoms and being treated for influenza currently consulted on account of T-wave inversions in the precordial leads V3 to V6 and inferior leads. He denies any chest discomfort no dizziness lightheadedness he does have cough expectoration and some shortness of breath but no cardiac symptoms labs are reviewed white count is normal hemoglobin is 12.7 Normal electrolytes 3 normal troponins Twelve-lead ECG as above On examination he is afebrile 97.2F pulse rate in the 70s respirations are nonlabored respirations were 14-16, blood pressure 134/73 mmHg No JVD and Breath sounds are reduced bilaterally with some crackles in the bases Heart sounds S1 and S2 are normal no murmurs no gallops no rub Abdomen soft nontender Extremities warm no edema Impression Influenza A Abnormal ECG. I'm not sure if this is new or of these are chronic abnormalities noted on his ECG. I would like to see a prior ECG. Cardiac enzymes are normal Suggest 2-D echo and Doppler study tomorrow and reassessment thereafter Past Medical History Past Medical History: Atrial Fibrillation, Pneumonia Additional Past Medical History / Comment(s): 20 years ago - collapsed lung, chest tube History of Any Multi-Drug Resistant Organisms: None Reported Past Surgical History: No Surgical Hx Reported Additional Past Surgical History / Comment(s): C/T PLACEMENT Past Anesthesia/Blood Transfusion Reactions: No Reported Reaction Past Psychological History: No Psychological Hx Reported Additional Psychological History / Comment(s): PT LIVES ALONE, NO SERVICE, 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 Smoking Status: Never smoker Past Alcohol Use History: Occasional Past Drug Use History: None Reported - Past Family History Father Family Medical History: Unable to Obtain Additional Family Medical History / Comment(s): . Mother Family Medical History: Deep Vein Thrombosis (DVT) Medications and Allergies Home Medications Medication Instructions Recorded Confirmed Type No Known Home Medications [No 07/01/17 07/01/17 History Known Home Medications] Allergies Allergy/AdvReac Type Severity Reaction Status Date / Time No Known Allergies Allergy Verified 07/01/17 10:59 Physical Exam Vitals: Vital Signs Temp Pulse Pulse Resp BP Pulse Ox 07/02/17 08:00 97.2 F L 72 16 134/73 98 07/02/17 04:00 97.6 F 80 16 126/80 95 07/02/17 00:00 97.0 F L 71 16 128/78 94 L 07/01/17 20:00 99.2 F 76 16 130/75 95 07/01/17 16:17 85 07/01/17 16:07 84 07/01/17 16:00 99.9 F H 93 16 155/78 94 L 07/01/17 12:53 80 07/01/17 12:45 76 07/01/17 11:41 80 16 07/01/17 11:40 80 16 151/83 93 L Intake and Output 07/01/17 07/02/17 07/02/17 22:59 06:59 14:59 Intake Total 735 600 Output Total 0 Balance 735 600 0 Intake: IV 675 600 Sodium Chloride 0.9% 1, 675 600 000 ml @ 75 mls/hr IV . [id number] ONE Rx#:[id number] Oral 60 Output: Urine 0 Stool 0 Other: Voiding Method Toilet Toilet Urinal Urinal # Voids 3 0 # Bowel Movements 0 Weight 75.1 kg Results 07/02/17 06:20 07/02/17 06:20 Cardiac Enzymes 07/01/17 07/01/17 07/02/17 Range/Units 10:14 18:14 06:20 AST 29 (17-59) U/L Troponin I <0.012 <0.012 (0.000-0.034) ng/mL CBC 07/02/17 Range/Units 06:20 WBC 8.0 (3.8-10.6) k/uL RBC 4.15 L (4.30-5.90) m/uL Hgb 12.7 L (13.0-17.5) gm/dL Hct 37.7 L (39.0-53.0) % Plt Count 173 (150-450) k/uL Comprehensive Metabolic Panel 07/02/17 Range/Units 06:20 Sodium 137 (137-145) mmol/L Potassium 4.2 (3.5-5.1) mmol/L Chloride 104 (98-107) mmol/L Carbon Dioxide 25 (22-30) mmol/L BUN 10 (9-20) mg/dL Creatinine 0.80 (0.66-1.25) mg/dL Glucose 99 (74-99) mg/dL Calcium 8.8 (8.4-10.2) mg/dL AST 29 (17-59) U/L ALT 36 (21-72) U/L Alkaline Phosphatase 71 (38-126) U/L Total Protein 5.6 L (6.3-8.2) g/dL Albumin 3.1 L (3.5-5.0) g/dL Current Medications Generic Name Dose Route Start Last Admin Trade Name Freq PRN Reason Stop Dose Admin Hydrocodone Bitart/Acetaminophen 1 each 07/01/17 10:07 07/01/17 16:45 [place] 5-325 PO 1 each Q4HR PRN Administration Pain Albuterol/Ipratropium 3 ml 07/01/17 08:00 07/02/17 08:13 Duoneb 0.5 Mg-3 Mg/3 Ml Soln INHALATION Not Given RT-QID NICK Oseltamivir Phosphate 75 mg 07/01/17 21:00 07/02/17 09:21 Tamiflu PO 07/06/17 09:01 75 mg Q12HR NICK Administration Intake and Output 07/01/17 07/02/17 07/02/17 22:59 06:59 14:59 Intake Total 735 600 Output Total 0 Balance 735 600 0 Intake: IV 675 600 Sodium Chloride 0.9% 1, 675 600 000 ml @ 75 mls/hr IV . [id number] ONE Rx#:[id number] Oral 60 Output: Urine 0 Stool 0 Other: Voiding Method Toilet Toilet Urinal Urinal # Voids 3 0 # Bowel Movements 0 Weight 75.1 kg 07/02/17 06:20 07/02/17 06:20
[2017-07-02] MEDS: HYDROcodone/APAP 5-325MG 1 EACH TAB PO PRN (23:11)
[2017-07-02 23:15] LABS: Basophils # (A) 0.1 k/uL (0-0.2); Basophils % (A) 1 %; Eosinophils # (A) 0.1 k/uL (0-0.7); Eosinophils % (A) 1 %; HCT 41.8 % (39.0-53.0); HGB 13.2 gm/dL (13.0-17.5); Lymphocytes # (A) 1.1 k/uL (1.0-4.8); Lymphocytes % (A) 15 %; MCHC 31.6 g/dL (31.0-37.0); MCV 95.1 fL (80.0-100.0); Mean Platelet Volume 7.8; Monocytes # (A) 0.3 k/uL (0-1.0); Monocytes % (A) 4 %; Neutrophils # (A) 5.5 k/uL (1.3-7.7); Neutrophils % (A) 78 %; Platelet Count 212 k/uL (150-450); RDW 13.8 % (11.5-15.5)
[2017-07-03 06:39] LABS: Anion Gap 9 mmol/L; Blood Urea Nitrogen 13 mg/dL (9-20); Calcium 9.1 mg/dL (8.4-10.2); Carbon Dioxide 26 mmol/L (22-30); Chloride 102 mmol/L (98-107); Glucose 112 mg/dL (74-99); Sodium 137 mmol/L (137-145)
[2017-07-03] MEDS: IPRATROPIUM-ALBUTEROL 3 ML NEB INHALATION SCH ×4 (08:09→21:57)
[2017-07-03] MEDS ORDERED: guaiFENesin SYRUP 100MG/5ML 200 MG/10 ML CUP PO PRN (09:06)
[2017-07-03] MEDS: OSELTAMIVIR 75 MG CAP PO SCH ×2 (09:13→20:02)
--- NOTE | 2017-07-03 17:41 | P.HPIM ---
History of Present Illness H&P Date: 07/01/17 Chief Complaint: Cough and SOB Mr. Hdz is a 55-year-old male with a past medical history of atrial fibrillation, collapsed lung with chest tube placement 20 years back coming in with a chief complaint of chest pain and difficulty in breathing. Patient complains of cough along with chest pain that has been going on since . Patient denies having any sick contacts. Patient is a nonsmoker. 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 Patient denies taking any medications on a regular basis. He complains of cough which is productive in nature, yellowish sputum, no blood. Patient denies having any abdominal pain nausea vomiting or diarrhea. Patient denies having any headache dizziness loss of consciousness. Patient has been tested positive for influenza A. He is in droplet precautions currently. Patient states that he feels sick but cannot explain in detail how he feels. He denies any specific complaints but complained of generalized weakness and fatigue. Review of Systems REVIEW OF SYSTEMS: PSYCH: No depression or anxiety NEURO:No c/o weakness of the extremties, No facial droop, No speech abnormalities. VASCULAR: Peripheral nervous system within the normal limits no edema HEMATOLOGIC: No history of easy bleeding and bruising . No recent infections . RESPIRATORY: No cough, No SOB, No chest discomfort. IMMUNE: No infections INTEGUMENT: no rashes OPHTHALMOLOGIC: No blurry vision and no eye discharge : No dysuria or hematuria CARDIAC: + chest pain , shortness of breath , paroxysmal nocturnal dyspnea MUSCULOSKELETAL : No Aches or pains in the joints or muscles. GI: No abdominal pain, Nausea or vomiting. No constipation or diarrhea. All 13 review of systems are done and negative except for ones mentioned in HPI Past Medical History Past Medical History: Atrial Fibrillation, Pneumonia Additional Past Medical History / Comment(s): 20 years ago - collapsed lung, chest tube History of Any Multi-Drug Resistant Organisms: None Reported Past Surgical History: No Surgical Hx Reported Additional Past Surgical History / Comment(s): C/T PLACEMENT Past Anesthesia/Blood Transfusion Reactions: No Reported Reaction Past Psychological History: No Psychological Hx Reported Additional Psychological History / Comment(s): PT LIVES ALONE, NO SERVICE, 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 Smoking Status: Never smoker Past Alcohol Use History: Occasional Past Drug Use History: None Reported - Past Family History Father Family Medical History: Unable to Obtain Additional Family Medical History / Comment(s): . Mother Family Medical History: Deep Vein Thrombosis (DVT) Medications and Allergies Home Medications Medication Instructions Recorded Confirmed Type No Known Home Medications [No 07/01/17 07/01/17 History Known Home Medications] Allergies Allergy/AdvReac Type Severity Reaction Status Date / Time No Known Allergies Allergy Verified 07/01/17 10:59 Physical Exam Vitals: Vital Signs Temp Pulse Pulse Resp BP BP Pulse Ox 07/01/17 08:51 80 07/01/17 08:44 72 16 07/01/17 08:42 97.2 F L 72 14 152/91 94 L 07/01/17 08:38 72 97 07/01/17 07:31 98.5 F 71 18 153/87 97 07/01/17 06:22 99.3 F 75 20 156/92 94 L 07/01/17 05:41 101 F H 75 16 151/91 95 07/01/17 04:24 101.2 F H 98 20 172/102 92 L Intake and Output 06/30/17 07/01/17 07/01/17 22:59 06:59 14:59 Other: Weight 75 kg GENERAL EXAM GEN. APPEARANCE: Acutely ill but no apparent distress HEAD EXAM: atraumatic, normocephalic, normal inspection EYE EXAM: normal appearance, PERRL, EOMI. Absent: scleral icterus, conjunctival injection, periorbital swelling ENT EXAM: Bilateral nasal congestion NECK EXAM: normal inspection. Absent: tenderness, meningismus, full ROM, lymphadenopathy RESPIRATORY EXAM: Coarse breath sounds in all lung [place] CARDIOVASCULAR EXAM: regular rate, normal rhythm, normal heart sounds. Absent : systolic murmur, diastolic murmur, rubs, gallop, clicks GI/ABDOMINAL EXAM: soft, normal bowel sounds. Absent: distended, tenderness, guarding, rebound, rigid EXTREMITIES EXAM: normal inspection, full ROM, normal capillary refill. Absent : tenderness, pedal edema, joint swelling, calf tenderness BACK EXAM: normal inspection NEUROLOGICAL EXAM: alert, oriented X3, CN II-XII intact, no motor sensory deficit PSYCHIATRIC EXAM: normal affect, normal mood SKIN EXAM: warm, dry, intact, normal color. Absent: rash Results CBC & Chem 7: 07/01/17 04:45 07/01/17 04:45 Labs: Abnormal Lab Results - Last 24 Hours (Table) 07/01/17 07/01/17 07/01/17 Range/Units 04:45 04:45 04:45 Lymphocytes # 0.4 L (1.0-4.8) k/uL Glucose 131 H (74-99) mg/dL Total Creatine Kinase (55-170) U/L Urine Protein (Negative) Urine Glucose (UA) (Negative) Urine Ketones (Negative) Influenza Type A RNA Detected H (Not Detectd) 07/01/17 07/01/17 Range/Units 04:45 04:45 Lymphocytes # (1.0-4.8) k/uL Glucose (74-99) mg/dL Total Creatine Kinase 49 L (55-170) U/L Urine Protein Trace H (Negative) Urine Glucose (UA) 3+ H (Negative) Urine Ketones 2+ H (Negative) Influenza Type A RNA (Not Detectd) Thrombosis Risk Factor Assmnt - Choose All That Apply Any of the Below Risk Factors Present?: Yes Each Factor Represents 1 point: Age 41-60 years Each Risk Factor Represents 3 Points: Family history of DVT/PE Thrombosis Risk Factor Assessment Total Risk Factor Score: 4 Thrombosis Risk Factor Assessment Level: Moderate Risk Assessment and Plan Assessment: Sepsis secondary to Influenza A positive Chest pain with EKG changes with no troponin elevation History of atrial fibrillation in the past but not on anticoagulation History of lung collapse 20 years back status post chest tube placement Plan Patient has been started on Tamiflu which will be continued. We will repeat troponins. Cardiology consult has been placed. Continue with IV fluid support. We'll continue with the current medication regimen and further recommendations depending on the progress of the patient.
--- NOTE | 2017-07-03 17:42 | P.PN ---
Subjective Progress Note Date: 07/03/17 Principal diagnosis: Inflenza A , chest pain Mr. Hdz is a 55-year-old male with a past medical history of atrial fibrillation, collapsed lung with chest tube placement 20 years back coming in with a chief complaint of chest pain and difficulty in breathing. Patient complains of cough along with chest pain that has been going on since . Patient denies having any sick contacts. Patient is a nonsmoker. 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 Patient denies taking any medications on a regular basis. He complains of cough which is productive in nature, yellowish sputum, no blood. Patient denies having any abdominal pain nausea vomiting or diarrhea. Patient denies having any headache dizziness loss of consciousness. Patient has been tested positive for influenza A. He is in droplet precautions currently. On 07/02/17: Pt feels much better than yesterday. On 07/03/2017: Patient still complains of difficulty in breathing with cough that is productive in nature. He denies having any fevers chills or rigors. He complains of chest soreness but no chest pain. He also complains of pain under the rib cage due to continuous coughing Objective - Vital Signs Vital signs: Vital Signs Temp 98.7 F 07/03/17 15:42 Pulse 74 07/03/17 15:42 Resp 18 07/03/17 15:42 BP 134/80 07/03/17 15:42 Pulse Ox 93 L 07/03/17 15:42 Intake & Output 07/02/17 07/03/17 07/03/17 18:59 06:59 18:59 Intake Total 717 200 Output Total 0 Balance 717 200 Weight 75.3 kg Intake: Oral 717 200 Output: Urine 0 Stool 0 Other: Voiding Method Toilet Urinal # Voids 2 1 5 # Bowel Movements 0 - Exam GEN. APPEARANCE: Acutely ill but no apparent distress HEAD EXAM: atraumatic, normocephalic, normal inspection EYE EXAM: normal appearance, PERRL, EOMI. Absent: scleral icterus, conjunctival injection, periorbital swelling ENT EXAM: Bilateral nasal congestion NECK EXAM: normal inspection. Absent: tenderness, meningismus, full ROM, lymphadenopathy RESPIRATORY EXAM: Coarse breath sounds in all lung corado CARDIOVASCULAR EXAM: regular rate, normal rhythm, normal heart sounds. Absent : systolic murmur, diastolic murmur, rubs, gallop, clicks GI/ABDOMINAL EXAM: soft, normal bowel sounds. Absent: distended, tenderness, guarding, rebound, rigid EXTREMITIES EXAM: normal inspection, full ROM, normal capillary refill. Absent : tenderness, pedal edema, joint swelling, calf tenderness BACK EXAM: normal inspection NEUROLOGICAL EXAM: alert, oriented X3, CN II-XII intact, no motor sensory deficit PSYCHIATRIC EXAM: normal affect, normal mood SKIN EXAM: warm, dry, intact, normal color. Absent: rash - Labs CBC & Chem 7: 07/02/17 23:03 07/03/17 06:02 Labs: Abnormal Lab Results - Last 24 Hours (Table) 07/03/17 Range/Units 06:02 Glucose 112 H (74-99) mg/dL Microbiology - Last 24 Hours (Table) 07/01/17 04:45 Blood Culture - Preliminary Blood No Growth after 48 hours Assessment and Plan Assessment: Sepsis secondary to Influenza A positive Chest pain with EKG changes with no troponin elevation History of atrial fibrillation in the past but not on anticoagulation History of lung collapse 20 years back status post chest tube placement Plan Patient has been started on Tamiflu which will be continued. We will get a chest x-ray. Cardiology consulted - recs to have Echo. Echo done today showing EF within normal limits. Continue with IV fluid support. We'll continue with the current medication regimen and further recommendations depending on the progress of the patient.
--- NOTE | 2017-07-03 17:42 | P.PN ---
Subjective Progress Note Date: 07/02/17 Principal diagnosis: Inflenza A , chest pain Mr. Hdz is a 55-year-old male with a past medical history of atrial fibrillation, collapsed lung with chest tube placement 20 years back coming in with a chief complaint of chest pain and difficulty in breathing. Patient complains of cough along with chest pain that has been going on since . Patient denies having any sick contacts. Patient is a nonsmoker. 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 Patient denies taking any medications on a regular basis. He complains of cough which is productive in nature, yellowish sputum, no blood. Patient denies having any abdominal pain nausea vomiting or diarrhea. Patient denies having any headache dizziness loss of consciousness. Patient has been tested positive for influenza A. He is in droplet precautions currently. On 07/02/17: Pt feels much better than yesterday. Objective - Vital Signs Vital signs: Vital Signs Temp 97.1 F L 07/02/17 20:00 Pulse 64 07/02/17 20:00 Resp 16 07/02/17 20:00 BP 129/86 07/02/17 20:00 Pulse Ox 94 L 07/02/17 20:00 Intake & Output 07/02/17 07/02/17 07/03/17 06:59 18:59 06:59 Intake Total 600 717 Output Total 0 Balance 600 717 Weight 75.1 kg Intake: IV 600 Sodium Chloride 0.9% 1, 600 000 ml @ 75 mls/hr IV . [id number] ONE Rx#:[id number] Oral 717 Output: Urine 0 Stool 0 Other: Voiding Method Toilet Toilet Urinal Urinal # Voids 2 # Bowel Movements 0 - Exam GEN. APPEARANCE: Acutely ill but no apparent distress HEAD EXAM: atraumatic, normocephalic, normal inspection EYE EXAM: normal appearance, PERRL, EOMI. Absent: scleral icterus, conjunctival injection, periorbital swelling ENT EXAM: Bilateral nasal congestion NECK EXAM: normal inspection. Absent: tenderness, meningismus, full ROM, lymphadenopathy RESPIRATORY EXAM: Coarse breath sounds in all lung corado CARDIOVASCULAR EXAM: regular rate, normal rhythm, normal heart sounds. Absent : systolic murmur, diastolic murmur, rubs, gallop, clicks GI/ABDOMINAL EXAM: soft, normal bowel sounds. Absent: distended, tenderness, guarding, rebound, rigid EXTREMITIES EXAM: normal inspection, full ROM, normal capillary refill. Absent : tenderness, pedal edema, joint swelling, calf tenderness BACK EXAM: normal inspection NEUROLOGICAL EXAM: alert, oriented X3, CN II-XII intact, no motor sensory deficit PSYCHIATRIC EXAM: normal affect, normal mood SKIN EXAM: warm, dry, intact, normal color. Absent: rash - Labs CBC & Chem 7: 07/02/17 06:20 07/02/17 06:20 Labs: Abnormal Lab Results - Last 24 Hours (Table) 07/02/17 07/02/17 Range/Units 06:20 06:20 RBC 4.15 L (4.30-5.90) m/uL Hgb 12.7 L (13.0-17.5) gm/dL Hct 37.7 L (39.0-53.0) % Lymphocytes # 0.8 L (1.0-4.8) k/uL Total Protein 5.6 L (6.3-8.2) g/dL Albumin 3.1 L (3.5-5.0) g/dL Microbiology - Last 24 Hours (Table) 07/01/17 04:45 Urine Culture - Final Urine,Voided 07/01/17 04:45 Blood Culture - Preliminary Blood No Growth after 24 hours Assessment and Plan Assessment: Sepsis secondary to Influenza A positive Chest pain with EKG changes with no troponin elevation History of atrial fibrillation in the past but not on anticoagulation History of lung collapse 20 years back status post chest tube placement Plan Patient has been started on Tamiflu which will be continued. Cardiology consulted - recs to have Echo with doppler scheduled for tomorrow. Continue with IV fluid support. We'll continue with the current medication regimen and further recommendations depending on the progress of the patient.
--- NOTE | 2017-07-03 17:49 | XR ---
EXAMINATION: XR chest 1V DATE AND TIME: 07/03/2017 5:12 PM ORDERING PROVIDER: Janell Jimenez CLINICAL INDICATION: Cough TECHNIQUE: AP upright portable COMPARISON: 07/01/2017 DESCRIPTION: EKG leads. There is no pneumothorax. There is added opacity in the right lower lungs, more evident than the prior study, and this could re present developing right lower lobe bronchopneumonia if clinically confirmed. The lungs are otherwise clear. The pleural spaces are negative. The cardiac silhouette is not enlarged. The mediastinal and pleural silhouettes are unremarkable. The skeletal structures are intact without focal findings. The soft tissues are unremarkable. IMPRESSION: Suspect developing right lower lobe bronchopneumonia.
[2017-07-04] MEDS: OSELTAMIVIR 75 MG CAP PO SCH ×2 (08:09→22:38)
[2017-07-04] MEDS: IPRATROPIUM-ALBUTEROL 3 ML NEB INHALATION SCH ×4 (08:36→20:03)
[2017-07-04 08:55] LABS: Anion Gap 11 mmol/L; Blood Urea Nitrogen 15 mg/dL (9-20); Calcium 9.3 mg/dL (8.4-10.2); Carbon Dioxide 23 mmol/L (22-30); Chloride 102 mmol/L (98-107); Glucose 103 mg/dL (74-99); Potassium 4.3 mmol/L (3.5-5.1); Sodium 136 mmol/L (137-145)
[2017-07-04 12:00] LABS: Basophils # (A) 0.1 k/uL (0-0.2); Basophils % (A) 1 %; Eosinophils # (A) 0.1 k/uL (0-0.7); Eosinophils % (A) 1 %; HCT 41.7 % (39.0-53.0); HGB 13.5 gm/dL (13.0-17.5); Lymphocytes % (A) 14 %; MCHC 32.5 g/dL (31.0-37.0); MCV 92.4 fL (80.0-100.0); Mean Platelet Volume 9.6; Monocytes # (A) 0.7 k/uL (0-1.0); Monocytes % (A) 10 %; Neutrophils % (A) 73 %; Platelet Count 242 k/uL (150-450); RBC 4.51 m/uL (4.30-5.90); RDW 13.7 % (11.5-15.5); WBC 6.9 k/uL (3.8-10.6)
[2017-07-04] MEDS ORDERED: cefTRIAXone IN SWFI 1,000 MG/10 ML SYRINGE IVP SCH (12:15)
[2017-07-04] MEDS ORDERED: AZITHROMYCIN 500 MG in SODIUM CHLORIDE 0.9% 250 ML IVPB SCH (12:15)
[2017-07-04] MEDS: CEFUROXIME 250 MG TAB PO SCH ×2 (15:32→22:38)
--- NOTE | 2017-07-04 21:07 | PN ---
PROGRESS NOTE DATE OF SERVICE: 07/04/2017. BRIEF HISTORY: A 56-year-old male patient admitted to the hospital complaining of chest pain and difficulty breathing. The patient was diagnosed with sepsis secondary to pneumonia and influenza A. He was started on Tamiflu and antibiotic treatment. The patient was seen in his room. Claims that breathing is slightly better. Continues to have a productive cough. His vital signs today, temperature of 97.8, pulse 73, respirations 18, blood pressure 146/92, O2 saturation 92% on room air. PHYSICAL EXAMINATION: GENERAL: Patient is awake, alert and oriented. He is in mild respiratory distress. HEENT: Atraumatic, normocephalic. Pupils equal and reactive to light. Extraocular movements intact. Buccal mucosa is fair. NECK: Supple. RESPIRATORY: Lungs rhonchi and wheezing both lower lung corado. Improving air entry. CARDIOVASCULAR: Heart is regular rate and rhythm without any murmurs, gallop rhythm. GI: Abdomen is soft, nontender, nondistended. Bowel sounds positive. EXTREMITIES: No edema, clubbing, or cyanosis. NEUROLOGIC: Cranial nerves 2 through 12 grossly intact. No gross motor or sensory deficit. PSYCHIATRIC: The patient has normal affect and mood, normal judgment. SKIN: Warm, dry, and intact. LYMPHATIC SYSTEM: No palpable cervical or axillary lymph nodes. MUSCULOSKELETAL: The patient moves all 4 extremities. DIAGNOSTIC DATA: Chest x-ray shows a developing right lower lobe bronchopneumonia. CBC, white blood count of 6.9, hemoglobin 13.5, hematocrit 41.7, and platelet count of 242,000. Chemical profile, sodium 136, potassium 4.3, chloride 102, bicarb 23, BUN of 15, creatinine 0.75. ASSESSMENT: 1. Dyspnea with hypoxemia, multifactorial. 2. Influenza A. 3. Right lower lobe pneumonia. 4. Chest pain with EKG changes. Troponins were negative. 5. Atrial fibrillation, not on anticoagulation. 6. History of lung collapse, status post chest tube placement. PLAN: The patient has been placed on Tamiflu. Chest x-ray did show developing pneumonia. Patient is placed on Levaquin and is tolerating well. Continue with bronchodilator breathing treatment. The patient is followed by Cardiology. Echocardiogram was done which showed a normal ejection fraction. No further cardiac workup is recommended by neuro. We will plan to continue all the current treatment. Possible discharge home on oral antibiotics tomorrow. MMODL / IJN: [id number] /
[2017-07-05] MEDS: CEFUROXIME 250 MG TAB PO SCH (07:51)
[2017-07-05] MEDS: OSELTAMIVIR 75 MG CAP PO SCH (07:51)
[2017-07-05 08:02] VITALS: BP 131/81; PULSE 63; RESP 16; TEMP 98
[2017-07-05] MEDS: IPRATROPIUM-ALBUTEROL 3 ML NEB INHALATION SCH ×2 (08:49→11:47)
--- NOTE | 2017-07-05 14:14 | CDI ---
Sepsis was Ruled out Last Revision, May 2017 Documentation Clarification Form Date: 07/05/2017 2:04:00 PM From: Elizabeth JiménezMclaughlin, CHUCHO, CCDS Admit Date: 07/01/2017 5:55:00 AM Patient Name: Favian Hdz Visit Number: [id number] Discharge Date: 07/05/2017 ATTENTION: The Clinical Documentation Specialists (CDI) and [facility] Coding Staff appreciate your assistance in clarifying documentation. Please respond to the clarification below the line at the bottom and electronically sign. The CDI & [facility] Coding staff will review the response and follow-up if needed. Please note: Queries are made part of the Legal Health Record. If you have any questions, please contact the author of this message via ITS. Dr. Lalito Castro: Per the H/P & subsequent progress notes, Sepsis with Influenza A & pneumonia is documented. Per your 07/04 progress note: Sepsis no longer documented. There is hypoxemia documented. History/Risk Factors: Atrial fibrillation & previous pneumothorax requiring chest tube, years ago. Clinical Indicators: VS: T 101.2, BP 172/102, PO 92 RA LAB: Influenza type A detected. Other Clinical Indicators: SOB, cough, fever, dizzy. Abnormal EKG pending review by cardiology. Treatment: Tamiflu, Blood culture, Albuterol INH, O2 2Lnc, IV fluids, IV Azithromycin. In your professional opinion, please clarify if these findings signify one of the following conditions, whether the condition is POA, and cause, if known: Sepsis o Due to or With: o Ruled In or Ruled Out Severe Sepsis Other, please specify Unable to determine Present on Admission: Yes No Identify the (suspected) organism if known. Please continue to document in your progress notes and discharge summary in order to capture severity of illness and risk of mortality. Include clinical findings that support your diagnosis. MTDD
--- NOTE | 2017-07-23 19:18 | DS ---
DISCHARGE SUMMARY DATE OF ADMISSION: 07/01/2017. DISCHARGE DATE: 07/05/2017. ADMISSION DIAGNOSES: 1. Chest pain rule out acute coronary syndrome. 2. Sepsis secondary to influenza A. 3. History of atrial fibrillation. 4. History of lung collapse. BRIEF HISTORY ON THIS PATIENT: Patient presented to the ED with complaint of cough along with chest pain going on for a few days. Patient did not have any sick contacts. He is a nonsmoker. 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 In the in the hospital, patient tested positive for influenza A. PAST MEDICAL HISTORY: Atrial fibrillation, history of lung collapse with chest tube placement, history of pneumonia in the past. HOME MEDICATIONS: Metoprolol 50 mg b.i.d. and Coumadin 5 mg a day. PHYSICAL EXAMINATION: CONSTITUTIONAL: Patient is awake, alert, oriented. VITAL SIGNS ON ADMISSION: Temperature 101.2, pulse 98, respiration 20, blood pressure 172/102, O2 saturation 97%. HEENT: Atraumatic, normocephalic. Pupils equal and react to light. Extraocular movements intact. Buccal mucosa moist. NECK: Supple. No goiter, lymphadenopathy. JVD is negative. No carotid bruit heard. LUNGS: Coarse breath sounds. All lung corado positive rales, rhonchi and wheezing. Decreased air entry. HEART: Regular rate and rhythm without murmurs, gallop rhythm. ABDOMEN: Soft, nontender, not distended. Bowel sounds positive. EXTREMITIES: No edema clubbing, cyanosis. NEUROLOGICAL EXAMINATION: Cranial nerves 2-12 grossly intact. LABS ON ADMISSION: CBC: White count 7.8, hemoglobin 13.9, hematocrit 41.2, platelet count 228. Chemical profile: Sodium 140, potassium 4.0, chloride 102, bicarb 24, BUN 18, creatinine of 0.9, glucose 131. BRIEF HOSPITAL COURSE: Patient was admitted to the regular floor with telemetry. Was started Tamiflu. Cardiac enzymes and EKG were negative. Cardiology was consulted. The patient was started on IV fluids. Renal functions and electrolytes were monitored. The patient had some improvement with above treatment, was seen by Cardiology. His chest pain subsided. No further workup was recommended. Patient remained stable after that. No further complications. He was discharged on the following medications: Albuterol 2 puffs q.6 hours, Ceftin 500 mg b.i.d., Tamiflu 75 mg p.o. q.12 hours, Robitussin every 6 hours p.r.n. The patient was advised to continue taking metoprolol 25 mg b.i.d. and Coumadin 5 mg p.o. daily. DISCHARGE DIAGNOSES: 1. Influenza A. 2. Right lower lobe pneumonia. 3. Chest pain and EKG changes, acute coronary syndrome ruled out. 4. Atrial fibrillation. MMODL / IJN: [id number] / MTDD
== END 2017-07-05 14:30 | disposition home or self-care (01) | DRG 871 ==
LOC: EC 04:24 → 6SEL 05:55 → 5MS5E 07-03 20:37
PROVIDERS: ADMIT Hospitalist; ATTEND Hospitalist
DX: A41.89 Other specified sepsis (principal); J10.00 Influenza due to other identified influenza virus with unspecified type of pneumonia; I48.91 Unspecified atrial fibrillation; R09.02 Hypoxemia; R07.9 Chest pain, unspecified; R94.31 Abnormal electrocardiogram [ECG] [EKG]
CPT/HCPCS: 36415; 71045; 71046; 80048; 80053; 81003; 82550; 82553; 83605; 84484; 85025; 85610; 85730; 87040; 87086; 87502; 94640; 94760; 96360; 96361; 99285

== ENCOUNTER 2017-07-13 15:25 | Emergency (ER) | payer OTHER ==
[2017-07-13 15:30] VITALS: TEMP 98.4
--- NOTE | 2017-07-13 15:43 | ED ---
General Adult HPI - General Chief complaint: Dizziness Stated complaint: Lightheaded Time Seen by Provider: 07/13/17 15:33 Source: patient, RN notes reviewed, old records reviewed Mode of arrival: ambulatory Limitations: no limitations - History of Present Illness Initial comments: This is a 56-year-old male to the ER for evaluation. This patient presents for evaluation regards to follow-up from family practice office. Patient is recent hospital admission and was doing follow-up appointment today. Patient has medical history for A. fib and recent diagnosis of pneumonia. Patient currently has no fever. Denies shortness of breath, patient states he felt a little lightheaded and dizzy but no other significant complaints today at the family doctor's office. Patient was sent to ER for evaluation by family physician - Related Data Home Medications Medication Instructions Recorded Confirmed No Known Home Medications [No 07/13/17 07/13/17 Known Home Medications] Allergies Allergy/AdvReac Type Severity Reaction Status Date / Time No Known Allergies Allergy Verified 07/13/17 15:48 Review of Systems ROS Statement: Those systems with pertinent positive or pertinent negative responses have been documented in the HPI. ROS Other: All systems not noted in ROS Statement are negative. Past Medical History Past Medical History: Atrial Fibrillation, Pneumonia Additional Past Medical History / Comment(s): 20 years ago - collapsed lung, chest tube History of Any Multi-Drug Resistant Organisms: None Reported Past Surgical History: No Surgical Hx Reported Additional Past Surgical History / Comment(s): C/T PLACEMENT Past Anesthesia/Blood Transfusion Reactions: No Reported Reaction Past Psychological History: No Psychological Hx Reported Smoking Status: Never smoker Past Alcohol Use History: Occasional Past Drug Use History: None Reported - Past Family History Father Family Medical History: Unable to Obtain Additional Family Medical History / Comment(s): . Mother Family Medical History: Deep Vein Thrombosis (DVT) General Exam Limitations: no limitations General appearance: alert, in no apparent distress Head exam: Present: atraumatic, normocephalic, normal inspection Eye exam: Present: normal appearance, PERRL, EOMI. Absent: scleral icterus, conjunctival injection, periorbital swelling ENT exam: Present: normal exam, mucous membranes moist Neck exam: Present: normal inspection. Absent: tenderness, meningismus, lymphadenopathy Respiratory exam: Present: normal lung sounds bilaterally. Absent: respiratory distress, wheezes, rales, rhonchi, stridor Cardiovascular Exam: Present: regular rate, normal rhythm, normal heart sounds. Absent: systolic murmur, diastolic murmur, rubs, gallop, clicks GI/Abdominal exam: Present: soft, normal bowel sounds. Absent: distended, tenderness, guarding, rebound, rigid Extremities exam: Present: normal inspection, full ROM, normal capillary refill. Absent: tenderness, pedal edema, joint swelling, calf tenderness Back exam: Present: normal inspection Neurological exam: Present: alert, oriented X3, CN II-XII intact Psychiatric exam: Present: normal affect, normal mood Skin exam: Present: warm, dry, intact, normal color. Absent: rash Course Vital Signs 07/13/17 07/13/17 07/13/17 15:27 16:33 17:25 Temperature 98.4 F Pulse Rate 101 H 79 68 Respiratory 18 18 18 Rate Blood Pressure 178/107 141/95 149/95 O2 Sat by Pulse 91 L 98 100 Oximetry - Reevaluation(s) Reevaluation #1: 07/13/17 17:08 Patient was sent for evaluation regarding abnormal EKG Reevaluation #2: 07/13/17 17:54 Patient's prior heart catheterization is reviewed EKG Findings - EKG Comments: EKG Findings:: EKG shows normal sinus rhythm rate of 75, IA 140, QRS 108, QTC 419 Medical Decision Making - Medical Decision Making 56 male the ER for evaluation of dizziness, patient does have history of dizziness, A. fib with RVR. Patient sent for abnormal EKG. Patient has cardiac catheterization report is reviewed from 2 years ago is normal. Patient denies chest pain or shortness of breath. EKG and troponin are negative. The emergency room. Patient can be discharged home - Lab Data Result diagrams: 07/13/17 16:21 07/13/17 16:21 Lab Results 07/13/17 07/13/17 07/13/17 Range/Units 16:21 16:21 16:21 WBC 8.7 (3.8-10.6) k/uL RBC 4.52 (4.30-5.90) m/uL Hgb 13.4 (13.0-17.5) gm/dL Hct 40.8 (39.0-53.0) % MCV 90.1 (80.0-100.0) fL MCH 29.6 (25.0-35.0) pg MCHC 32.8 (31.0-37.0) g/dL RDW 12.6 (11.5-15.5) % Plt Count 471 H (150-450) k/uL Neutrophils % 74 % Lymphocytes % 17 % Monocytes % 5 % Eosinophils % 1 % Basophils % 1 % Neutrophils # 6.5 (1.3-7.7) k/uL Lymphocytes # 1.5 (1.0-4.8) k/uL Monocytes # 0.4 (0-1.0) k/uL Eosinophils # 0.1 (0-0.7) k/uL Basophils # 0.1 (0-0.2) k/uL PT (9.0-12.0) sec INR (<1.2) APTT (22.0-30.0) sec D-Dimer (<0.60) mg/L FEU Sodium 139 (137-145) mmol/L Potassium 4.3 (3.5-5.1) mmol/L Chloride 104 (98-107) mmol/L Carbon Dioxide 26 (22-30) mmol/L Anion Gap 9 mmol/L BUN 19 (9-20) mg/dL Creatinine 0.84 (0.66-1.25) mg/dL Est GFR (MDRD) Af Amer >60 (>60 ml/min/1.73 sqM) Est GFR (MDRD) Non-Af >60 (>60 ml/min/1.73 sqM) Glucose 95 (74-99) mg/dL Calcium 9.5 (8.4-10.2) mg/dL Magnesium 2.1 (1.6-2.3) mg/dL Total Bilirubin 0.7 (0.2-1.3) mg/dL AST 23 (17-59) U/L ALT 33 (21-72) U/L Alkaline Phosphatase 84 (38-126) U/L Total Creatine Kinase 36 L (55-170) U/L CK-MB (CK-2) <0.2 (0.0-2.4) ng/mL CK-MB (CK-2) Rel Index Troponin I <0.012 (0.000-0.034) ng/mL NT-Pro-B Natriuret Pep pg/mL Total Protein 6.4 (6.3-8.2) g/dL Albumin 3.8 (3.5-5.0) g/dL Lipase 122 (23-300) U/L 07/13/17 07/13/17 Range/Units 16:21 16:21 WBC (3.8-10.6) k/uL RBC (4.30-5.90) m/uL Hgb (13.0-17.5) gm/dL Hct (39.0-53.0) % MCV (80.0-100.0) fL MCH (25.0-35.0) pg MCHC (31.0-37.0) g/dL RDW (11.5-15.5) % Plt Count (150-450) k/uL Neutrophils % % Lymphocytes % % Monocytes % % Eosinophils % % Basophils % % Neutrophils # (1.3-7.7) k/uL Lymphocytes # (1.0-4.8) k/uL Monocytes # (0-1.0) k/uL Eosinophils # (0-0.7) k/uL Basophils # (0-0.2) k/uL PT 10.4 (9.0-12.0) sec INR 1.1 (<1.2) APTT 23.0 (22.0-30.0) sec D-Dimer 0.27 (<0.60) mg/L FEU Sodium (137-145) mmol/L Potassium (3.5-5.1) mmol/L Chloride (98-107) mmol/L Carbon Dioxide (22-30) mmol/L Anion Gap mmol/L BUN (9-20) mg/dL Creatinine (0.66-1.25) mg/dL Est GFR (MDRD) Af Amer (>60 ml/min/1.73 sqM) Est GFR (MDRD) Non-Af (>60 ml/min/1.73 sqM) Glucose (74-99) mg/dL Calcium (8.4-10.2) mg/dL Magnesium (1.6-2.3) mg/dL Total Bilirubin (0.2-1.3) mg/dL AST (17-59) U/L ALT (21-72) U/L Alkaline Phosphatase (38-126) U/L Total Creatine Kinase (55-170) U/L CK-MB (CK-2) (0.0-2.4) ng/mL CK-MB (CK-2) Rel Index Troponin I (0.000-0.034) ng/mL NT-Pro-B Natriuret Pep 158 pg/mL Total Protein (6.3-8.2) g/dL Albumin (3.5-5.0) g/dL Lipase (23-300) U/L Disposition Clinical Impression: Dehydration, Dizziness Disposition: HOME SELF-CARE Condition: Good Instructions: Dizziness (ED) Referrals: Bertha Olea MD [Primary Care Provider] - 1-2 days
[2017-07-13] MEDS ORDERED: SODIUM CHLORIDE 0.9% 1,000 ML IV STA (16:24)
[2017-07-13] MEDS ORDERED: LABETALOL 5 MG/ML VIAL MDV IVP STA (16:24)
[2017-07-13 16:54] LABS: ALT 33 U/L (21-72); AST 23 U/L (17-59); Albumin 3.8 g/dL (3.5-5.0); Alkaline Phosphatase 84 U/L (38-126); Anion Gap 9 mmol/L; Blood Urea Nitrogen 19 mg/dL (9-20); Calcium 9.5 mg/dL (8.4-10.2); Carbon Dioxide 26 mmol/L (22-30); Chloride 104 mmol/L (98-107); Glucose 95 mg/dL (74-99); INR 1.1 (<1.2); Lipase 122 U/L (23-300); Magnesium 2.1 mg/dL (1.6-2.3); Potassium 4.3 mmol/L (3.5-5.1); Prothrombin Time 10.4 sec (9.0-12.0); Sodium 139 mmol/L (137-145); Total Bilirubin 0.7 mg/dL (0.2-1.3); Total Protein 6.4 g/dL (6.3-8.2)
[2017-07-13 16:58] LABS: Basophils # (A) 0.1 k/uL (0-0.2); Basophils % (A) 1 %; Eosinophils # (A) 0.1 k/uL (0-0.7); Eosinophils % (A) 1 %; HCT 40.8 % (39.0-53.0); HGB 13.4 gm/dL (13.0-17.5); Lymphocytes # (A) 1.5 k/uL (1.0-4.8); Lymphocytes % (A) 17 %; MCH 29.6 pg (25.0-35.0); MCHC 32.8 g/dL (31.0-37.0); MCV 90.1 fL (80.0-100.0); Mean Platelet Volume 6.9; Monocytes # (A) 0.4 k/uL (0-1.0); Monocytes % (A) 5 %; Neutrophils # (A) 6.5 k/uL (1.3-7.7); Neutrophils % (A) 74 %; Platelet Count 471 k/uL (150-450); RBC 4.52 m/uL (4.30-5.90); RDW 12.6 % (11.5-15.5); WBC 8.7 k/uL (3.8-10.6)
[2017-07-13 17:01] LABS: D-Dimer 0.27 mg/L FEU (<0.60)
[2017-07-13 17:05] LABS: Creatine Kinase 36 U/L (55-170)
[2017-07-13 17:18] LABS: Creatine Kinase MB <0.2 ng/mL (0.0-2.4)
[2017-07-13 17:47] LABS: Troponin I <0.012 ng/mL (0.000-0.034)
[2017-07-13 18:03] VITALS: BP 156/97; PULSE 70; RESP 16
== END 2017-07-13 18:24 | disposition home or self-care (01) ==
LOC: EC 15:25
DX: E86.0 Dehydration (principal); Z53.8 Procedure and treatment not carried out for other reasons
CPT/HCPCS: 36415; 80053; 82550; 82553; 83690; 83735; 83880; 84484; 85025; 85379; 85610; 85730; 93005; 99284

== ENCOUNTER 2019-12-10 23:33 | Emergency (ER) | payer OTHER ==
--- NOTE | 2019-12-10 23:44 | ED ---
Lower Extremity Injury HPI - General Chief Complaint: Extremity Injury, Lower Stated Complaint: Leg swelling Time Seen by Provider: 12/10/19 23:42 Source: patient, RN notes reviewed, old records reviewed Mode of arrival: ambulatory Limitations: no limitations - History of Present Illness Initial Comments: This is a 51-year-old male DF for evaluation patient presents today for evaluation of low lower extremity edema bilaterally. No shortness of breath no chest pain. Patient has been taking medications as prescribed no recent travel history or sick contacts patient has history of atrial fibrillation hypertension. no other complaints of chest pain or shortness of breath MD Complaint: other (Bilateral lower extremity edema) -: days(s) Type of Injury: other Severity: mild (No injury) Severity scale (1-10): 3 Worsens With: nothing Associated Symptoms: swelling - Related Data Previous Rx's Medication Instructions Recorded Lisinopril [Zestril] 10 mg PO DAILY #30 tab 12/11/19 Allergies Allergy/AdvReac Type Severity Reaction Status Date / Time No Known Allergies Allergy Verified 12/10/19 23:40 Review of Systems ROS Statement: Those systems with pertinent positive or pertinent negative responses have been documented in the HPI. ROS Other: All systems not noted in ROS Statement are negative. Past Medical History Past Medical History: Atrial Fibrillation, Hypertension, Pneumonia Additional Past Medical History / Comment(s): 20 years ago - collapsed lung, chest tube History of Any Multi-Drug Resistant Organisms: None Reported Past Surgical History: No Surgical Hx Reported Additional Past Surgical History / Comment(s): C/T PLACEMENT Past Anesthesia/Blood Transfusion Reactions: No Reported Reaction Past Psychological History: No Psychological Hx Reported Smoking Status: Never smoker Past Alcohol Use History: Daily Past Drug Use History: None Reported - Past Family History Father Family Medical History: Unable to Obtain Additional Family Medical History / Comment(s): . Mother Family Medical History: Deep Vein Thrombosis (DVT) General Exam Limitations: no limitations General appearance: alert, in no apparent distress Head exam: Present: atraumatic, normocephalic, normal inspection Eye exam: Present: normal appearance, PERRL, EOMI. Absent: scleral icterus, conjunctival injection, periorbital swelling ENT exam: Present: normal exam, mucous membranes moist Neck exam: Present: normal inspection. Absent: tenderness, meningismus, lymphadenopathy Respiratory exam: Present: normal lung sounds bilaterally. Absent: respiratory distress, wheezes, rales, rhonchi, stridor Cardiovascular Exam: Present: regular rate, normal rhythm, normal heart sounds. Absent: systolic murmur, diastolic murmur, rubs, gallop, clicks GI/Abdominal exam: Present: soft, normal bowel sounds. Absent: distended, tenderness, guarding, rebound, rigid Extremities exam: Present: normal inspection, full ROM, normal capillary refill, other (Bilateral rotation be edema no tenderness). Absent: tenderness, pedal edema, joint swelling, calf tenderness Back exam: Present: normal inspection Neurological exam: Present: alert, oriented X3, CN II-XII intact Psychiatric exam: Present: normal affect, normal mood Skin exam: Present: warm, dry, intact, normal color. Absent: rash Course Vital Signs 12/10/19 12/11/19 12/11/19 23:38 00:00 00:15 Temperature 97.9 F Pulse Rate 83 79 Pulse Rate [ 83 School Nurse ] Respiratory 18 18 Rate Blood Pressure 213/126 196/128 O2 Sat by Pulse 100 99 Oximetry 12/11/19 12/11/19 12/11/19 00:30 01:08 02:00 Temperature Pulse Rate 76 73 64 Pulse Rate [ School Nurse ] Respiratory 18 18 18 Rate Blood Pressure 190/126 157/112 178/121 O2 Sat by Pulse 99 98 99 Oximetry 12/11/19 02:16 Temperature 97.1 F L Pulse Rate 63 Pulse Rate [ School Nurse ] Respiratory 16 Rate Blood Pressure 168/135 O2 Sat by Pulse 97 Oximetry - Reevaluation(s) Reevaluation #1: Medical records reviewed Patient without complaint Medical Decision Making - Medical Decision Making 59 male DF for evaluation of uncontrolled high blood pressure patient given blood pressure control lower extremity edema. Patient given Lasix and can be discharged home - Lab Data Result diagrams: 12/10/19 23:59 12/10/19 23:59 Lab Results 12/10/19 12/10/19 12/10/19 Range/Units 23:59 23:59 23:59 WBC 7.0 (3.8-10.6) k/uL RBC 4.48 (4.30-5.90) m/uL Hgb 13.2 (13.0-17.5) gm/dL Hct 41.0 (39.0-53.0) % MCV 91.6 (80.0-100.0) fL MCH 29.4 (25.0-35.0) pg MCHC 32.1 (31.0-37.0) g/dL RDW 13.3 (11.5-15.5) % Plt Count 314 (150-450) k/uL Neutrophils % 73 % Lymphocytes % 14 % Monocytes % 7 % Eosinophils % 4 % Basophils % 1 % Neutrophils # 5.0 (1.3-7.7) k/uL Lymphocytes # 1.0 (1.0-4.8) k/uL Monocytes # 0.5 (0-1.0) k/uL Eosinophils # 0.3 (0-0.7) k/uL Basophils # 0.1 (0-0.2) k/uL PT 9.7 (9.0-12.0) sec INR 0.9 (<1.2) APTT 23.3 (22.0-30.0) sec D-Dimer 0.36 (<0.60) mg/L FEU Sodium 135 L (137-145) mmol/L Potassium 4.1 (3.5-5.1) mmol/L Chloride 99 (98-107) mmol/L Carbon Dioxide 27 (22-30) mmol/L Anion Gap 9 mmol/L BUN 23 H (9-20) mg/dL Creatinine 1.14 (0.66-1.25) mg/dL Est GFR (CKD-EPI)AfAm 82 (>60 ml/min/1.73 sqM) Est GFR (CKD-EPI)NonAf 71 (>60 ml/min/1.73 sqM) Glucose 101 H (74-99) mg/dL Calcium 9.9 (8.4-10.2) mg/dL Phosphorus 4.2 (2.5-4.5) mg/dL Magnesium 2.2 (1.6-2.3) mg/dL Total Bilirubin 1.4 H (0.2-1.3) mg/dL AST 34 (17-59) U/L ALT 27 (4-49) U/L Alkaline Phosphatase 103 (38-126) U/L Troponin I (0.000-0.034) ng/mL NT-Pro-B Natriuret Pep pg/mL Total Protein 7.7 (6.3-8.2) g/dL Albumin 4.7 (3.5-5.0) g/dL Serum Alcohol <10 mg/dL 12/10/19 12/10/19 Range/Units 23:59 23:59 WBC (3.8-10.6) k/uL RBC (4.30-5.90) m/uL Hgb (13.0-17.5) gm/dL Hct (39.0-53.0) % MCV (80.0-100.0) fL MCH (25.0-35.0) pg MCHC (31.0-37.0) g/dL RDW (11.5-15.5) % Plt Count (150-450) k/uL Neutrophils % % Lymphocytes % % Monocytes % % Eosinophils % % Basophils % % Neutrophils # (1.3-7.7) k/uL Lymphocytes # (1.0-4.8) k/uL Monocytes # (0-1.0) k/uL Eosinophils # (0-0.7) k/uL Basophils # (0-0.2) k/uL PT (9.0-12.0) sec INR (<1.2) APTT (22.0-30.0) sec D-Dimer (<0.60) mg/L FEU Sodium (137-145) mmol/L Potassium (3.5-5.1) mmol/L Chloride (98-107) mmol/L Carbon Dioxide (22-30) mmol/L Anion Gap mmol/L BUN (9-20) mg/dL Creatinine (0.66-1.25) mg/dL Est GFR (CKD-EPI)AfAm (>60 ml/min/1.73 sqM) Est GFR (CKD-EPI)NonAf (>60 ml/min/1.73 sqM) Glucose (74-99) mg/dL Calcium (8.4-10.2) mg/dL Phosphorus (2.5-4.5) mg/dL Magnesium (1.6-2.3) mg/dL Total Bilirubin (0.2-1.3) mg/dL AST (17-59) U/L ALT (4-49) U/L Alkaline Phosphatase (38-126) U/L Troponin I <0.012 (0.000-0.034) ng/mL NT-Pro-B Natriuret Pep 170 pg/mL Total Protein (6.3-8.2) g/dL Albumin (3.5-5.0) g/dL Serum Alcohol mg/dL - EKG Data -: EKG Interpreted by Me (EKG is sinus rhythm 76 SD 122 QRS 98 QTc 623) Disposition Clinical Impression: Bilateral leg edema, Hypertension Disposition: HOME SELF-CARE Condition: Good Instructions (If sedation given, give patient instructions): Leg Edema (ED), Hypertension (ED) Prescriptions: Lisinopril [Zestril] 10 mg PO DAILY #30 tab Is patient prescribed a controlled substance at d/c from ED?: No Referrals: Bertha Olea MD [Primary Care Provider] - 1-2 days
[2019-12-11 00:07] LABS: Basophils # (A) 0.1 k/uL (0-0.2); Basophils % (A) 1 %; Eosinophils # (A) 0.3 k/uL (0-0.7); Eosinophils % (A) 4 %; HGB 13.2 gm/dL (13.0-17.5); Lymphocytes % (A) 14 %; MCH 29.4 pg (25.0-35.0); MCHC 32.1 g/dL (31.0-37.0); MCV 91.6 fL (80.0-100.0); Mean Platelet Volume 7.8; Monocytes # (A) 0.5 k/uL (0-1.0); Monocytes % (A) 7 %; Neutrophils % (A) 73 %; Platelet Count 314 k/uL (150-450); RBC 4.48 m/uL (4.30-5.90); RDW 13.3 % (11.5-15.5)
[2019-12-11 00:18] LABS: ALT 27 U/L (4-49); AST 34 U/L (17-59); African American GFR (CKD) 82 (>60 ml/min/1.73 sqM); Albumin 4.7 g/dL (3.5-5.0); Alcohol <10 mg/dL; Alkaline Phosphatase 103 U/L (38-126); Anion Gap 9 mmol/L; Blood Urea Nitrogen 23 mg/dL (9-20); Calcium 9.9 mg/dL (8.4-10.2); Carbon Dioxide 27 mmol/L (22-30); Chloride 99 mmol/L (98-107); Glucose 101 mg/dL (74-99); Magnesium 2.2 mg/dL (1.6-2.3); Non-African American GFR(CKD) 71 (>60 ml/min/1.73 sqM); Phosphorus 4.2 mg/dL (2.5-4.5); Potassium 4.1 mmol/L (3.5-5.1); Sodium 135 mmol/L (137-145); Total Bilirubin 1.4 mg/dL (0.2-1.3); Total Protein 7.7 g/dL (6.3-8.2)
[2019-12-11 00:21] LABS: D-Dimer 0.36 mg/L FEU (<0.60); INR 0.9 (<1.2); Partial Thromboplastin Time 23.3 sec (22.0-30.0); Prothrombin Time 9.7 sec (9.0-12.0)
[2019-12-11] MEDS ORDERED: LABETALOL 5 MG/ML VIAL MDV IVP STA (00:45)
[2019-12-11] MEDS ORDERED: FUROSEMIDE 10 MG/ML 4 ML VIAL IV STA (01:58)
[2019-12-11] MEDS ORDERED: LISINOPRIL 10 MG TAB PO STA (02:00)
[2019-12-11 02:18] VITALS: BP 168/135; PULSE 63; RESP 16; TEMP 97.1
== END 2019-12-11 02:27 | disposition home or self-care (01) ==
LOC: EC 23:33
DX: R60.1 Generalized edema (principal); I10 Essential (primary) hypertension; Z79.899 Other long term (current) drug therapy
CPT/HCPCS: 36415; 93005; 85379; 83880; 80053; 83735; 84100; 84484; 85025; 85610; 85730; 99284; 96374; 96375; G0480; J1940; 80320

== ENCOUNTER 2020-04-23 09:03 | Emergency (ER) | payer OTHER ==
[2020-04-23 09:07] VITALS: TEMP 97.8
[2020-04-23] MEDS ORDERED: SODIUM CHLORIDE 0.9% 500 ML 500 ML IV STA (09:25)
--- NOTE | 2020-04-23 09:29 | ED ---
General Adult HPI - General Chief complaint: Arrhythmia/Palpitations Stated complaint: Palpatations,AFib Time Seen by Provider: 04/23/20 09:05 Source: patient, RN notes reviewed, old records reviewed Mode of arrival: ambulatory Limitations: no limitations - History of Present Illness Initial comments: This is a 59-year-old male who presents emergency Department stating he has a history of atrial fibrillation. Patient states also he drinks quite a bit when he does drink he did not drink yesterday. Patient comes in today because he is feeling like his heart skipping a beat he states only last a second but he can feel anything wonders if he is going into atrial fibrillation. Patient denies any chest pain or pressure. Patient denies any difficulty breathing or shortness of breath. Patient states he has a little swelling is legs but that is his baseline. Patient denies any fever chills or cough per patient denies any lightheadedness dizziness or nursing about so. Patient denies any abdominal pain patient denies nausea vomiting diarrhea patient states he symptoms started last night. - Related Data Home Medications Medication Instructions Recorded Confirmed Metoprolol Succinate [Toprol XL] 50 mg PO DAILY 04/23/20 04/23/20 Naproxen Sodium [Aleve] 440 mg PO Q12H PRN 04/23/20 04/23/20 Allergies Allergy/AdvReac Type Severity Reaction Status Date / Time No Known Allergies Allergy Verified 04/23/20 09:48 Review of Systems ROS Statement: Those systems with pertinent positive or pertinent negative responses have been documented in the HPI. ROS Other: All systems not noted in ROS Statement are negative. Past Medical History Past Medical History: Atrial Fibrillation, Hypertension, Pneumonia Additional Past Medical History / Comment(s): 20 years ago - collapsed lung, chest tube History of Any Multi-Drug Resistant Organisms: None Reported Past Surgical History: No Surgical Hx Reported Additional Past Surgical History / Comment(s): C/T PLACEMENT Past Anesthesia/Blood Transfusion Reactions: No Reported Reaction Past Psychological History: No Psychological Hx Reported Smoking Status: Former smoker Past Alcohol Use History: Daily Past Drug Use History: None Reported - Past Family History Father Family Medical History: Unable to Obtain Additional Family Medical History / Comment(s): . Mother Family Medical History: Deep Vein Thrombosis (DVT) General Exam - General Exam Comments Initial Comments: GENERAL: Patient is well-developed and well-nourished. Patient is nontoxic and well- hydrated and is in no acute distress. ENT: Neck is soft and supple. No significant lymphadenopathy is noted. Oropharynx is clear. Moist mucous membranes. Neck has full range of motion without eliciting any pain. EYES: The sclera were anicteric and conjunctiva were pink and moist. Extraocular movements were intact and pupils were equal round and reactive to light. Eyelids were unremarkable. PULMONARY: Unlabored respirations. Good breath sounds bilaterally. No audible rales rhonchi or wheezing was noted. CARDIOVASCULAR: There is a regular rate and rhythm without any murmurs gallops or rubs. Patient occasionally was having what appeared to be a PAC on the monitor and he indicated when those occurred that's what he was feeling. ABDOMEN: Soft and nontender with normal bowel sounds. SKIN: Skin is clear with no lesions or rashes and otherwise unremarkable. NEUROLOGIC: Patient is alert and oriented x3. Cranial nerves II through XII are grossly intact. Motor and sensory are also intact. Normal speech, volume and content. Symmetrical smile. MUSCULOSKELETAL: Normal extremities with adequate strength and full range of motion. LYMPHATICS: No significant lymphadenopathy is noted PSYCHIATRIC: Normal psychiatric evaluation. Limitations: no limitations Course Vital Signs 04/23/20 04/23/20 04/23/20 09:04 09:18 09:50 Temperature 97.8 F Pulse Rate 87 78 74 Respiratory 18 18 9 L Rate Blood Pressure 209/110 201/126 201/126 O2 Sat by Pulse 100 100 96 Oximetry 04/23/20 04/23/20 04/23/20 10:00 10:30 10:49 Temperature Pulse Rate 74 67 68 Respiratory 9 L 12 18 Rate Blood Pressure 201/126 185/112 180/118 O2 Sat by Pulse 99 98 100 Oximetry 04/23/20 04/23/20 04/23/20 11:00 11:10 11:28 Temperature Pulse Rate 85 Respiratory 32 H Rate Blood Pressure 180/118 170/115 173/103 O2 Sat by Pulse 80 L Oximetry 04/23/20 04/23/20 04/23/20 11:30 12:00 12:21 Temperature Pulse Rate 84 80 75 Respiratory 17 12 18 Rate Blood Pressure 173/103 171/98 150/95 O2 Sat by Pulse 98 100 99 Oximetry Medical Decision Making - Medical Decision Making EKG shows normal sinus rhythm at 70 bpm OK interval 226 QRS is 92 QT interval is 46 QTC is 462. EKG shows diffuse T-wave inversions in V3 through V6 as well as some slight ST segment depression in inferior leads. All of these changes were noted on the previous EKG. Patient states he has not been taking his beta ruthann for his blood pressure medication for at least 3 days. Patient received his blood pressure medication here orally and then 20 of h ydralazine. Patient admits to methamphetamine abuse Patient received a second dose hydralazine and 1 dose of Ativan and his blood pressure came down to 150/95. Patient had no symptoms at this point time he stated he had no extra beats since he took his blood pressure medications here in the ER - Lab Data Result diagrams: 04/23/20 09:18 04/23/20 09:18 Lab Results 04/23/20 04/23/20 04/23/20 Range/Units 09:18 09:18 09:18 WBC 5.5 (3.8-10.6) k/uL RBC 4.37 (4.30-5.90) m/uL Hgb 13.7 (13.0-17.5) gm/dL Hct 40.1 (39.0-53.0) % MCV 91.6 (80.0-100.0) fL MCH 31.3 (25.0-35.0) pg MCHC 34.1 (31.0-37.0) g/dL RDW 13.1 (11.5-15.5) % Plt Count 270 (150-450) k/uL MPV 8.1 Neutrophils % 66 % Lymphocytes % 19 % Monocytes % 9 % Eosinophils % 3 % Basophils % 1 % Neutrophils # 3.6 (1.3-7.7) k/uL Lymphocytes # 1.0 (1.0-4.8) k/uL Monocytes # 0.5 (0-1.0) k/uL Eosinophils # 0.2 (0-0.7) k/uL Basophils # 0.1 (0-0.2) k/uL PT 10.4 (9.0-12.0) sec INR 1.0 (<1.2) APTT 23.6 (22.0-30.0) sec Sodium 136 L (137-145) mmol/L Potassium 4.0 (3.5-5.1) mmol/L Chloride 104 (98-107) mmol/L Carbon Dioxide 22 (22-30) mmol/L Anion Gap 10 mmol/L BUN 20 (9-20) mg/dL Creatinine 1.28 H (0.66-1.25) mg/dL Est GFR (CKD-EPI)AfAm 71 (>60 ml/min/1.73 sqM) Est GFR (CKD-EPI)NonAf 61 (>60 ml/min/1.73 sqM) Glucose 95 (74-99) mg/dL Calcium 10.0 (8.4-10.2) mg/dL Magnesium 1.9 (1.6-2.3) mg/dL Total Bilirubin 2.9 H (0.2-1.3) mg/dL AST 36 (17-59) U/L ALT 20 (4-49) U/L Alkaline Phosphatase 85 (38-126) U/L Troponin I (0.000-0.034) ng/mL Total Protein 7.6 (6.3-8.2) g/dL Albumin 4.6 (3.5-5.0) g/dL TSH 0.732 (0.465-4.680) mIU/L Urine Opiates Screen (NotDetected) Ur Oxycodone Screen (NotDetected) Urine Methadone Screen (NotDetected) Ur Propoxyphene Screen (NotDetected) Ur Barbiturates Screen (NotDetected) U Tricyclic Antidepress (NotDetected) Ur Phencyclidine Scrn (NotDetected) Ur Amphetamines Screen (NotDetected) U Methamphetamines Scrn (NotDetected) U Benzodiazepines Scrn (NotDetected) Urine Cocaine Screen (NotDetected) U Marijuana (THC) Screen (NotDetected) Serum Alcohol <10 mg/dL 04/23/20 04/23/20 Range/Units 09:18 09:34 WBC (3.8-10.6) k/uL RBC (4.30-5.90) m/uL Hgb (13.0-17.5) gm/dL Hct (39.0-53.0) % MCV (80.0-100.0) fL MCH (25.0-35.0) pg MCHC (31.0-37.0) g/dL RDW (11.5-15.5) % Plt Count (150-450) k/uL MPV Neutrophils % % Lymphocytes % % Monocytes % % Eosinophils % % Basophils % % Neutrophils # (1.3-7.7) k/uL Lymphocytes # (1.0-4.8) k/uL Monocytes # (0-1.0) k/uL Eosinophils # (0-0.7) k/uL Basophils # (0-0.2) k/uL PT (9.0-12.0) sec INR (<1.2) APTT (22.0-30.0) sec Sodium (137-145) mmol/L Potassium (3.5-5.1) mmol/L Chloride (98-107) mmol/L Carbon Dioxide (22-30) mmol/L Anion Gap mmol/L BUN (9-20) mg/dL Creatinine (0.66-1.25) mg/dL Est GFR (CKD-EPI)AfAm (>60 ml/min/1.73 sqM) Est GFR (CKD-EPI)NonAf (>60 ml/min/1.73 sqM) Glucose (74-99) mg/dL Calcium (8.4-10.2) mg/dL Magnesium (1.6-2.3) mg/dL Total Bilirubin (0.2-1.3) mg/dL AST (17-59) U/L ALT (4-49) U/L Alkaline Phosphatase (38-126) U/L Troponin I <0.012 (0.000-0.034) ng/mL Total Protein (6.3-8.2) g/dL Albumin (3.5-5.0) g/dL TSH (0.465-4.680) mIU/L Urine Opiates Screen Not Detected (NotDetected) Ur Oxycodone Screen Not Detected (NotDetected) Urine Methadone Screen Not Detected (NotDetected) Ur Propoxyphene Screen Not Detected (NotDetected) Ur Barbiturates Screen Not Detected (NotDetected) U Tricyclic Antidepress Not Detected (NotDetected) Ur Phencyclidine Scrn Not Detected (NotDetected) Ur Amphetamines Screen Detected H (NotDetected) U Methamphetamines Scrn Detected H (NotDetected) U Benzodiazepines Scrn Not Detected (NotDetected) Urine Cocaine Screen Not Detected (NotDetected) U Marijuana (THC) Screen Detected H (NotDetected) Serum Alcohol mg/dL Disposition Clinical Impression: Hypertensive urgency, Premature atrial contraction, Methamphetamine abuse Disposition: HOME SELF-CARE Condition: Good Instructions (If sedation given, give patient instructions): Methamphetamine Abuse (ED), Hypertension (ED), Premature Atrial Contractions (ED) Is patient prescribed a controlled substance at d/c from ED?: No Referrals: Bertha Olea MD [Primary Care Provider] - 1-2 days Time of Disposition: 12:29
[2020-04-23] MEDS ORDERED: METOPROLOL SUCCINATE (ER) 50 MG TAB.ER.24H PO STA (09:48)
[2020-04-23 10:07] LABS: Basophils # (A) 0.1 k/uL (0-0.2); Basophils % (A) 1 %; Eosinophils # (A) 0.2 k/uL (0-0.7); Eosinophils % (A) 3 %; HCT 40.1 % (39.0-53.0); HGB 13.7 gm/dL (13.0-17.5); Lymphocytes % (A) 19 %; MCH 31.3 pg (25.0-35.0); MCHC 34.1 g/dL (31.0-37.0); MCV 91.6 fL (80.0-100.0); Mean Platelet Volume 8.1; Monocytes # (A) 0.5 k/uL (0-1.0); Monocytes % (A) 9 %; Neutrophils # (A) 3.6 k/uL (1.3-7.7); Neutrophils % (A) 66 %; Platelet Count 270 k/uL (150-450); RBC 4.37 m/uL (4.30-5.90); RDW 13.1 % (11.5-15.5); WBC 5.5 k/uL (3.8-10.6)
[2020-04-23 10:16] LABS: Partial Thromboplastin Time 23.6 sec (22.0-30.0); Prothrombin Time 10.4 sec (9.0-12.0)
[2020-04-23 10:18] LABS: ALT 20 U/L (4-49); African American GFR (CKD) 71 (>60 ml/min/1.73 sqM); Albumin 4.6 g/dL (3.5-5.0); Alcohol <10 mg/dL; Anion Gap 10 mmol/L; Blood Urea Nitrogen 20 mg/dL (9-20); Carbon Dioxide 22 mmol/L (22-30); Chloride 104 mmol/L (98-107); Glucose 95 mg/dL (74-99); Non-African American GFR(CKD) 61 (>60 ml/min/1.73 sqM); Sodium 136 mmol/L (137-145); Total Bilirubin 2.9 mg/dL (0.2-1.3); Total Protein 7.6 g/dL (6.3-8.2)
--- NOTE | 2020-04-23 10:18 | XR ---
EXAMINATION TYPE: XR chest 2V DATE OF EXAM: 04/23/2020 COMPARISON: Prior chest x-ray 07/03/2017 HISTORY: Dysrhythmia, atrial fibrillation TECHNIQUE: Frontal and lateral views of the chest are obtained. FINDINGS: Patient is rotated, there are overlying cardiac leads. There is no focal air space opacity , pleural effusion, or pneumothorax seen. The cardiac silhouette size is within normal limits. The osseous structures are intact. IMPRESSION: No acute cardiopulmonary process.
[2020-04-23 10:23] LABS: AST 36 U/L (17-59); Alkaline Phosphatase 85 U/L (38-126); Magnesium 1.9 mg/dL (1.6-2.3)
[2020-04-23] MEDS ORDERED: hydrALAZINE HCL 20 MG/ML 1 ML VIAL IVP STA ×2 (10:50→12:12)
[2020-04-23 11:06] LABS: Urn Cannabinoid Scrn Detected (NotDetected)
[2020-04-23 11:07] LABS: Amphetamine Screen,Urine Detected (NotDetected); Barbiturate Screen,Urine Not Detected (NotDetected); Benzodiazepines Screen,Urine Not Detected (NotDetected); Cocaine Screen,Urine Not Detected (NotDetected); Methadone Screen, Urine Not Detected (NotDetected); Opiate Screen,Urine Not Detected (NotDetected); Oxycodone Screen, Urine Not Detected (NotDetected); Phencyclidine Screen,Urine Not Detected (NotDetected); Tricyclic Antidepressant,Urine Not Detected (NotDetected)
[2020-04-23] MEDS ORDERED: LORazepam 2 MG/ML INJ IV STA (11:23)
[2020-04-23 12:21] VITALS: RESP 18
[2020-04-23 12:48] VITALS: BP 150/85; PULSE 84
== END 2020-04-23 12:49 | disposition home or self-care (01) ==
LOC: EC 09:03
DX: I16.0 Hypertensive urgency (principal); I49.1 Atrial premature depolarization; F15.10 Other stimulant abuse, uncomplicated; I10 Essential (primary) hypertension; Z79.899 Other long term (current) drug therapy; Z87.891 Personal history of nicotine dependence
CPT/HCPCS: 36415; 93005; 80053; 83735; 84443; 84484; 85025; 85610; 85730; 80306; 71046; 99285; 96374; 96375; 96376; 96361; G0480; J2060; J0360; 80320

== ENCOUNTER 2021-01-25 19:53 | Inpatient (IN) | payer OTHER ==
[2021-01-25] MEDS ORDERED: SODIUM CHLORIDE 0.9% 1,000 ML IV STA (20:41)
[2021-01-25] MEDS ORDERED: ONDANSETRON 4 MG/2 ML VIAL IVP STA (20:41)
[2021-01-25 21:05] LABS: Basophils # (A) 0.1 k/uL (0-0.2); Basophils % (A) 0 %; Eosinophils # (A) 0.3 k/uL (0-0.7); Eosinophils % (A) 1 %; HCT 37.4 % (39.0-53.0); HGB 12.4 gm/dL (13.0-17.5); Lymphocytes % (A) 6 %; MCH 30.4 pg (25.0-35.0); MCHC 33.1 g/dL (31.0-37.0); MCV 91.8 fL (80.0-100.0); Mean Platelet Volume 7.4; Monocytes # (A) 1.2 k/uL (0-1.0); Monocytes % (A) 7 %; Neutrophils % (A) 84 %; Platelet Count 639 k/uL (150-450); RBC 4.07 m/uL (4.30-5.90); RDW 13.6 % (11.5-15.5); WBC 17.9 k/uL (3.8-10.6)
[2021-01-25 21:19] LABS: Albumin 3.4 g/dL (3.5-5.0); Appearance,Urine Turbid (Clear); Bilirubin,Urine Negative (Negative); Blood,Urine Moderate (Negative); Calcium 9.9 mg/dL (8.4-10.2); Color,Urine Light Yellow; Glucose,Urine (UA) Negative (Negative); Ketones,Urine Negative (Negative); Leukocyte Esterase,Urine Large (Negative); Nitrite,Urine Negative (Negative); PH, Urine 6.5 (5.0-8.0); Potassium 4.4 mmol/L (3.5-5.1); Protein,Urine 1+ (Negative); RBC,Urine 28 /hpf (0-5); Specific Gravity,Urine 1.014 (1.001-1.035); Total Bilirubin 0.3 mg/dL (0.2-1.3); Total Protein 6.6 g/dL (6.3-8.2); Urobilinogen,Urine <2.0 mg/dL (<2.0); WBC,Urine >182 /hpf (0-5)
[2021-01-25] MEDS ORDERED: cefTRIAXone IN SWFI 1,000 MG/10 ML SYRINGE IVP STA (21:34)
--- NOTE | 2021-01-25 21:38 | ED ---
Male Urogenital HPI - General Chief complaint: Urogenital Stated complaint: flank pain Time Seen by Provider: 01/25/21 20:15 Source: patient Mode of arrival: ambulatory Limitations: no limitations - History of Present Illness Initial comments: 60-year-old male presents emergency Department with chief complaint of UTI symptoms. Patient reports for the past week he has been parenting infectious urinary symptoms including dysuria, increased urgency or frequency. He also reports obstructive urinary symptoms such as incomplete emptying. States he's also been feeling a bit of right-sided flank pain but no associated nausea vomiting diarrhea. He also reports some suprapubic abdominal pressure as well. Denies any hematuria, hematochezia or melena. States he had "kidney problems" when he was a child but is not exactly sure what it is. He denies any chest pain or shortness of breath. - Related Data Home Medications Medication Instructions Recorded Confirmed Metoprolol Succinate [Toprol XL] 50 mg PO DAILY 04/23/20 01/25/21 Ibuprofen [Motrin Ib] 200 - 800 mg PO Q6H PRN 01/25/21 01/25/21 Allergies Allergy/AdvReac Type Severity Reaction Status Date / Time No Known Allergies Allergy Verified 01/25/21 21:25 Review of Systems ROS Statement: Those systems with pertinent positive or pertinent negative responses have been documented in the HPI. ROS Other: All systems not noted in ROS Statement are negative. Past Medical History Past Medical History: Atrial Fibrillation, Hypertension, Pneumonia Additional Past Medical History / Comment(s): 20 years ago - collapsed lung, chest tube History of Any Multi-Drug Resistant Organisms: None Reported Past Surgical History: No Surgical Hx Reported Additional Past Surgical History / Comment(s): C/T PLACEMENT Past Anesthesia/Blood Transfusion Reactions: No Reported Reaction Past Psychological History: No Psychological Hx Reported Smoking Status: Former smoker Past Alcohol Use History: Daily Past Drug Use History: None Reported - Past Family History Father Family Medical History: Unable to Obtain Additional Family Medical History / Comment(s): . Mother Family Medical History: Deep Vein Thrombosis (DVT) General Exam Limitations: no limitations General appearance: alert, in no apparent distress Head exam: Present: atraumatic, normocephalic, normal inspection Eye exam: Present: normal appearance, PERRL, EOMI Pupils: Present: normal accommodation ENT exam: Present: normal exam, normal oropharynx, mucous membranes moist Neck exam: Present: normal inspection, full ROM. Absent: tenderness Respiratory exam: Present: normal lung sounds bilaterally. Absent: respiratory distress, wheezes, rales Cardiovascular Exam: Present: regular rate, normal rhythm, normal heart sounds. Absent: systolic murmur GI/Abdominal exam: Present: soft, tenderness ( Suprapubic pressure). Absent: distended, guarding, rebound, rigid Extremities exam: Present: normal inspection, full ROM, normal capillary refill. Absent: tenderness, pedal edema, joint swelling Back exam: Present: normal inspection, full ROM, CVA tenderness (R). Absent: tenderness, CVA tenderness (L), muscle spasm Neurological exam: Present: alert, oriented X3 Psychiatric exam: Present: normal affect, normal mood Skin exam: Present: warm, dry, intact, normal color Course Vital Signs 01/25/21 20:08 Temperature 99 F Pulse Rate 86 Respiratory 18 Rate Blood Pressure 140/88 O2 Sat by Pulse 99 Oximetry Medical Decision Making - Medical Decision Making 60-year-old male presents to emergency Department with UTI like symptoms. On Physical examination, suprapubic tenderness and right CVA tenderness. Vital signs within normal limits. CBC revealed leukocytosis of 17,000. Patient also appears to have acute kidney injury with elevated BUN and creatinine of 49 and 3.06, respectively. Acute kidney injury likely secondary to obstructive uropathy. Bladder scan revealed over 1 L of urine. Gallagher catheter was inserted. He also has elevated leukocyte esterase, white blood cells in the Urinalysis. Patient was started on Rocephin. Lactic acid within normal limits. Blood cultures Pending. Urine culture pending. Patient will be admitted for further medical management. I did speak to Dr. nuñez who will admit patient. Case discussed with - Lab Data Result diagrams: 01/25/21 20:57 01/25/21 20:57 Lab Results 01/25/21 01/25/21 01/25/21 Range/Units 20:57 20:57 20:57 WBC 17.9 H (3.8-10.6) k/uL RBC 4.07 L (4.30-5.90) m/uL Hgb 12.4 L (13.0-17.5) gm/dL Hct 37.4 L (39.0-53.0) % MCV 91.8 (80.0-100.0) fL MCH 30.4 (25.0-35.0) pg MCHC 33.1 (31.0-37.0) g/dL RDW 13.6 (11.5-15.5) % Plt Count 639 H (150-450) k/uL MPV 7.4 Neutrophils % 84 % Lymphocytes % 6 % Monocytes % 7 % Eosinophils % 1 % Basophils % 0 % Neutrophils # 15.0 H (1.3-7.7) k/uL Lymphocytes # 1.0 (1.0-4.8) k/uL Monocytes # 1.2 H (0-1.0) k/uL Eosinophils # 0.3 (0-0.7) k/uL Basophils # 0.1 (0-0.2) k/uL Sodium 138 (137-145) mmol/L Potassium 4.4 (3.5-5.1) mmol/L Chloride 111 H (98-107) mmol/L Carbon Dioxide 14 L (22-30) mmol/L Anion Gap 13 mmol/L BUN 47 H (9-20) mg/dL Creatinine 3.06 H (0.66-1.25) mg/dL Est GFR (CKD-EPI)AfAm 25 (>60 ml/min/1.73 sqM) Est GFR (CKD-EPI)NonAf 21 (>60 ml/min/1.73 sqM) Glucose 113 H (74-99) mg/dL Plasma Lactic Acid [place] (0.7-2.0) mmol/L Calcium 9.9 (8.4-10.2) mg/dL Total Bilirubin 0.3 (0.2-1.3) mg/dL AST 14 L (17-59) U/L ALT 14 (4-49) U/L Alkaline Phosphatase 95 (38-126) U/L Total Protein 6.6 (6.3-8.2) g/dL Albumin 3.4 L (3.5-5.0) g/dL Lipase 166 (23-300) U/L Urine Color Light Yellow Urine Appearance Turbid (Clear) Urine pH 6.5 (5.0-8.0) Ur Specific [place] 1.014 (1.001-1.035) Urine Protein 1+ H (Negative) Urine Glucose (UA) Negative (Negative) Urine Ketones Negative (Negative) Urine Blood Moderate H (Negative) Urine Nitrite Negative (Negative) Urine Bilirubin Negative (Negative) Urine Urobilinogen <2.0 (<2.0) mg/dL Ur Leukocyte Esterase Large H (Negative) Urine RBC 28 H (0-5) /hpf Urine WBC >182 H (0-5) /hpf Urine WBC Clumps Few H (None) /hpf 01/25/21 Range/Units 21:58 WBC (3.8-10.6) k/uL RBC (4.30-5.90) m/uL Hgb (13.0-17.5) gm/dL Hct (39.0-53.0) % MCV (80.0-100.0) fL MCH (25.0-35.0) pg MCHC (31.0-37.0) g/dL RDW (11.5-15.5) % Plt Count (150-450) k/uL MPV Neutrophils % % Lymphocytes % % Monocytes % % Eosinophils % % Basophils % % Neutrophils # (1.3-7.7) k/uL Lymphocytes # (1.0-4.8) k/uL Monocytes # (0-1.0) k/uL Eosinophils # (0-0.7) k/uL Basophils # (0-0.2) k/uL Sodium (137-145) mmol/L Potassium (3.5-5.1) mmol/L Chloride (98-107) mmol/L Carbon Dioxide (22-30) mmol/L Anion Gap mmol/L BUN (9-20) mg/dL Creatinine (0.66-1.25) mg/dL Est GFR (CKD-EPI)AfAm (>60 ml/min/1.73 sqM) Est GFR (CKD-EPI)NonAf (>60 ml/min/1.73 sqM) Glucose (74-99) mg/dL Plasma Lactic Acid Troy 0.8 (0.7-2.0) mmol/L Calcium (8.4-10.2) mg/dL Total Bilirubin (0.2-1.3) mg/dL AST (17-59) U/L ALT (4-49) U/L Alkaline Phosphatase (38-126) U/L Total Protein (6.3-8.2) g/dL Albumin (3.5-5.0) g/dL Lipase (23-300) U/L Urine Color Urine Appearance (Clear) Urine pH (5.0-8.0) Ur Specific [place] (1.001-1.035) Urine Protein (Negative) Urine Glucose (UA) (Negative) Urine Ketones (Negative) Urine Blood (Negative) Urine Nitrite (Negative) Urine Bilirubin (Negative) Urine Urobilinogen (<2.0) mg/dL Ur Leukocyte Esterase (Negative) Urine RBC (0-5) /hpf Urine WBC (0-5) /hpf Urine WBC Clumps (None) /hpf Disposition Clinical Impression: MADDIE (acute kidney injury), UTI (urinary tract infection) Disposition: ADMITTED IP TO THIS HOSP Condition: Fair Is patient prescribed a controlled substance at d/c from ED?: No Referrals: Bertha Olea MD [Primary Care Provider] - 1-2 days Time of Disposition: 22:55
--- NOTE | 2021-01-25 21:56 | CT ---
EXAMINATION TYPE: CT abdomen pelvis wo con DATE OF EXAM: 01/25/2021 COMPARISON: None HISTORY: flank pain, recent kidney infection CT DLP: 502.9 mGycm Automated exposure control for dose reduction was used. Images obtained from the diaphragm to the floor the pelvis with no contrast. Lung bases are clear of infiltrate. There is no pleural effusion. Heart size is normal. There is no p ericardial effusion. Liver spleen stomach pancreas appear intact. Bile ducts are not dilated. Gallbla dder is intact. There is no adrenal mass. There is bilateral hydronephrosis and hydroureter. There is markedly dilate d urinary bladder. Bladder measures 20 cm in length. There is no inguinal hernia. There is no free fl uid in the pelvis. There is prostatic calcification. I see no retroperitoneal adenopathy. There is no mesenteric edema. There is no ascites or free air. There is no sign of a bowel obstructio n. Appendix is not definitely seen. There is no sign of thickened appendix. Lumbar vertebra have normal alignment. Posterior elements are intact. There is no compression fractur e. The bony pelvis is intact. Hip joints are intact. IMPRESSION: Dilated urinary bladder with bilateral hydronephrosis and hydroureter. Hydronephrosis probably relate d to bladder outlet obstruction or reflux. No renal calculus. Appendix not seen. No sign of thickened appendix.
[2021-01-25] MEDS ORDERED: NALOXONE 0.4 MG/ML 1 ML VIAL IV PRN (22:49)
[2021-01-25] MEDS ORDERED: ONDANSETRON 4 MG/2 ML VIAL IVP PRN (22:49)
[2021-01-25] MEDS: TAMSULOSIN 0.4 MG CAP.ER.24H PO SCH (23:07)
[2021-01-25] MEDS: SODIUM CHLORIDE 0.9% 1,000 ML IV SCH (23:41)
[2021-01-26] MEDS ORDERED: HYDROmorphone 0.5 MG/0.5 ML SYRINGE IVP PRN (04:31)
[2021-01-26 06:29] LABS: Basophils # (A) 0.1 k/uL (0-0.2); Basophils % (A) 1 %; Eosinophils # (A) 0.1 k/uL (0-0.7); Eosinophils % (A) 1 %; HCT 37.8 % (39.0-53.0); HGB 12.4 gm/dL (13.0-17.5); Lymphocytes % (A) 7 %; MCH 30.6 pg (25.0-35.0); MCHC 32.7 g/dL (31.0-37.0); MCV 93.4 fL (80.0-100.0); Mean Platelet Volume 7.7; Monocytes # (A) 1.1 k/uL (0-1.0); Monocytes % (A) 8 %; Neutrophils # (A) 11.2 k/uL (1.3-7.7); Neutrophils % (A) 82 %; Platelet Count 619 k/uL (150-450); RBC 4.05 m/uL (4.30-5.90); RDW 13.5 % (11.5-15.5); WBC 13.7 k/uL (3.8-10.6)
[2021-01-26 06:38] LABS: Calcium 9.6 mg/dL (8.4-10.2); Potassium 4.1 mmol/L (3.5-5.1)
[2021-01-26] MEDS ORDERED: HYDROmorphone 0.5 MG/0.5 ML SYRINGE IVP STA (07:31)
[2021-01-26] MEDS: METOPROLOL SUCCINATE (ER) 25 MG TAB.ER.24H PO SCH (08:48)
[2021-01-26] MEDS: HEPARIN SODIUM,PORCINE/PF 5,000 UNIT/0.5 ML SYRINGE SQ SCH ×2 (08:56→20:50)
[2021-01-26] MEDS ORDERED: FAMOTIDINE 20 MG/2 ML VIAL IV SCH (09:00)
[2021-01-26] MEDS: amLODIPine 5 MG TAB PO SCH (11:04)
[2021-01-26] MEDS: HYDROmorphone 0.5 MG/0.5 ML SYRINGE IVP PRN ×3 (11:04→20:50)
[2021-01-26] MEDS: SODIUM CHLORIDE 0.9% 1,000 ML IV SCH ×2 (13:46→20:49)
[2021-01-26] MEDS: TAMSULOSIN 0.4 MG CAP.ER.24H PO SCH (20:50)
[2021-01-26] MEDS: HYDROmorphone 1 MG/ML 1 ML SYRINGE IVP PRN (22:13)
[2021-01-26] MEDS: PHENAZOPYRIDINE 100 MG TAB PO SCH (23:52)
[2021-01-27] MEDS ORDERED: HYDROcodone/APAP 5-325MG 1 EACH TAB PO STA (00:52)
[2021-01-27] MEDS: HYDROmorphone 1 MG/ML 1 ML SYRINGE IVP PRN ×7 (01:05→22:42)
--- NOTE | 2021-01-27 08:08 | P.HPIM ---
History of Present Illness Patient presents because of flank pain associated with dysuria and urgency and increased frequency of urination. His symptoms has been going on for 2 weeks. No significant abdominal pain or suprapubic pain, only mild intermittent right flank pain. His pain mainly in the penus. He rated as 7/10.non radiating , relieved with pain medications Also he had suprapubic discomfort. Bladder scan showed 1 L of urine retention. Also because of his pain, we recommended to change his Gallagher catheter to smaller size Vital signs stable, blood pressure on the high side 182/103 Admission labs showing leukocytosis of 17.9 and 13.7, hemoglobin 12.4 and platelets 619. Basic metabolic panel showing elevated creatinine of 3.0, down to 2.7. Rest of BMP and liver enzymes are unremarkable. Urinalysis is suspicious for infections with moderate blood and large leukocyte esterase and WC a more than 182. CT of the abdomen and pelvis without contrast: Dilated urinary bladder with bilateral hydronephrosis and hydroureter. No renal calculus. Review of Systems CONSTITUTIONAL: No fever, no malaise, no fatigue. HEENT: No recent visual problems or hearing problems. Denied any sore throat. CARDIOVASCULAR: No orthopnea, PND, no palpitations, no syncope. PULMONARY: No shortness of breath, no cough, no hemoptysis. GASTROINTESTINAL: No diarrhea, no nausea, no vomiting, no abdominal pain. Normoactive bowel sounds. NEUROLOGICAL: No headaches, no weakness, no numbness. HEMATOLOGICAL: Denies any bleeding or petechiae. -GENITOURINARY: As above MUSCULOSKELETAL/RHEUMATOLOGICAL: Denies any joint pain, swelling, or any muscle pain. ENDOCRINE: Denies any polyuria or polydipsia. Past Medical History Past Medical History: Atrial Fibrillation, Hypertension, Pneumonia Additional Past Medical History / Comment(s): 20 years ago - collapsed lung, chest tube History of Any Multi-Drug Resistant Organisms: None Reported Past Surgical History: Ablation Additional Past Surgical History / Comment(s): C/T PLACEMENT Past Anesthesia/Blood Transfusion Reactions: No Reported Reaction Past Psychological History: No Psychological Hx Reported Smoking Status: Never smoker Past Alcohol Use History: Rare Past Drug Use History: Methamphetamine - Past Family History Father Family Medical History: Unable to Obtain Additional Family Medical History / Comment(s): . Mother Family Medical History: Deep Vein Thrombosis (DVT) Medications and Allergies Home Medications Medication Instructions Recorded Confirmed Type Metoprolol Succinate [Toprol XL] 50 mg PO DAILY 04/23/20 01/25/21 History Ibuprofen [Motrin Ib] 200 - 800 mg PO Q6H PRN 01/25/21 01/25/21 History Allergies Allergy/AdvReac Type Severity Reaction Status Date / Time No Known Allergies Allergy Verified 01/25/21 21:25 Physical Exam Vitals: Vital Signs Temp Pulse Pulse Resp BP BP Pulse Ox 01/26/21 07:57 88 18 182/103 100 01/26/21 05:00 71 20 100 01/26/21 01:32 98.7 F 68 14 147/94 100 01/25/21 22:00 71 18 156/95 100 01/25/21 20:08 99 F 86 18 140/88 99 Intake and Output 01/25/21 01/26/21 01/26/21 22:59 06:59 14:59 Output Total 2450 Balance -2450 Output: Urine 650 Urine/Stool Mix 1800 Other: Voiding Method Toilet Weight 77.111 kg 77.111 kg GENERAL: The patient is alert and oriented x3, not in any acute distress. Well developed, well nourished. HEENT: Pupils are round and equally reacting to light. EOMI. No scleral icterus. No conjunctival pallor. Normocephalic, atraumatic. No pharyngeal erythema. No thyromegaly. CARDIOVASCULAR: S1 and S2 present. No murmurs, rubs, or gallops. PULMONARY: Chest is clear to auscultation, no wheezing or crackles. ABDOMEN: Soft, nontender, nondistended, normoactive bowel sounds. No palpable organomegaly. MUSCULOSKELETAL: No joint swelling or deformity. Genital area: penis does not look red or swollen, no significant penile tenderness. no scrotal swelling or tenderness. Inspection of the area looks normal however patient complaining of from pain inside the shaft of the penis. Gallagher catheter is in and draining urine. EXTREMITIES: No cyanosis, clubbing, or pedal edema. NEUROLOGICAL: Gross neurological examination did not reveal any focal deficits. SKIN: No rashes. No petechiae Results CBC & Chem 7: 01/26/21 05:41 01/26/21 05:41 Labs: Abnormal Lab Results - Last 24 Hours (Table) 01/25/21 01/25/2101/25/21 Range/Units 20:57 20:57 20:57 WBC 17.9 H (3.8-10.6) k/uL RBC 4.07 L (4.30-5.90) m/uL Hgb 12.4 L (13.0-17.5) gm/dL Hct 37.4 L (39.0-53.0) % Plt Count 639 H (150-450) k/uL Neutrophils # 15.0 H (1.3-7.7) k/uL Monocytes # 1.2 H (0-1.0) k/uL Chloride 111 H (98-107) mmol/L Carbon Dioxide 14 L (22-30) mmol/L BUN 47 H (9-20) mg/dL Creatinine 3.06 H (0.66-1.25) mg/dL Glucose 113 H (74-99) mg/dL AST 14 L (17-59) U/L Albumin 3.4 L (3.5-5.0) g/dL Urine Protein 1+ H (Negative) Urine Blood Moderate H (Negative) Ur Leukocyte Esterase Large H (Negative) Urine RBC 28 H (0-5) /hpf Urine WBC >182 H (0-5) /hpf Urine WBC Clumps Few H (None) /hpf 01/26/21 01/26/21 Range/Units 05:41 05:41 WBC 13.7 H (3.8-10.6) k/uL RBC 4.05 L (4.30-5.90) m/uL Hgb 12.4 L (13.0-17.5) gm/dL Hct 37.8 L (39.0-53.0) % Plt Count 619 H (150-450) k/uL Neutrophils # 11.2 H (1.3-7.7) k/uL Monocytes # 1.1 H (0-1.0) k/uL Chloride 110 H (98-107) mmol/L Carbon Dioxide 19 L (22-30) mmol/L BUN 41 H (9-20) mg/dL Creatinine 2.77 H (0.66-1.25) mg/dL Glucose 108 H (74-99) mg/dL AST (17-59) U/L Albumin (3.5-5.0) g/dL Urine Protein (Negative) Urine Blood (Negative) Ur Leukocyte Esterase (Negative) Urine RBC (0-5) /hpf Urine WBC (0-5) /hpf Urine WBC Clumps (None) /hpf Microbiology - Last 24 Hours (Table) 01/25/21 20:57 Urine Culture - Preliminary Urine,Voided Thrombosis Risk Factor Assmnt - Choose All That Apply Each Factor Represents 1 point: Age 41-60 years Thrombosis Risk Factor Assessment Total Risk Factor Score: 1 Thrombosis Risk Factor Assessment Level: Low Risk Assessment and Plan Assessment: Acute kidney injury Acute urinary retention with bilateral hydronephrosis. Status post Gallagher catheter in the emergency room Acute urinary tract infection Hypertension, controlled Plan: this is a pleasant 60 years old male who presents with UTI, urinary retention and hydronephrosis. Continue with ceftriaxone and follow-up urine culture. Continue with Gallagher catheter and check to smaller size. Urology consult. Start the patient on Flomax Follow-up creatinine level Start Norvasc 5 mg. Pain management abs and medication were reviewed.. Continue same treatment. Continue with symptomatic treatment. Resume home medication. Monitor lytes and vitals. DVT and GI prophylaxis. Further recommendations depends on the clinical course of the patient DVT prophylaxis: Subcutaneous heparin GI Prophylaxis: Pepcid Prognosis is guarded
[2021-01-27] MEDS ORDERED: ACETAMINOPHEN TAB 325 MG TAB PO PRN (08:11)
--- NOTE | 2021-01-27 08:12 | P.PN ---
Subjective Patient presents because of flank pain associated with dysuria and urgency and increased frequency of urination. His symptoms has been going on for 2 weeks. No significant abdominal pain or suprapubic pain, only mild intermittent right flank pain. His pain mainly in the penus. He rated as 7/10.non radiating , relieved with pain medications Also he had suprapubic discomfort. Bladder scan showed 1 L of urine retention. Also because of his pain, we recommended to change his Gallagher catheter to smaller size Vital signs stable, blood pressure on the high side 182/103 Admission labs showing leukocytosis of 17.9 and 13.7, hemoglobin 12.[address] atelets 619. Basic metabolic panel showing elevated creatinine of 3.0, down to 2.7. Rest of BMP and liver enzymes are unremarkable. Urinalysis is suspicious for infections with moderate blood and large leukocyte esterase and WC a more than 182. CT of the abdomen and pelvis without contrast: Dilated urinary bladder with bilateral hydronephrosis and hydroureter. No renal calculus. Review of Systems CONSTITUTIONAL: No fever, no malaise, no fatigue. HEENT: No recent visual problems or hearing problems. Denied any sore throat. CARDIOVASCULAR: No orthopnea, PND, no palpitations, no syncope. PULMONARY: No shortness of breath, no cough, no hemoptysis. GASTROINTESTINAL: No diarrhea, no nausea, no vomiting, no abdominal pain. Normoactive bowel sounds. NEUROLOGICAL: No headaches, no weakness, no numbness. HEMATOLOGICAL: Denies any bleeding or petechiae. -GENITOURINARY: As above MUSCULOSKELETAL/RHEUMATOLOGICAL: Denies any joint pain, swelling, or any muscle pain. ENDOCRINE: Denies any polyuria or polydipsia. 01/27/2021 Patient with less pain in his penile shaft today after increasing his Dilaudid 1 mg every 3 hours. Which helps to bring his pain down to 3/10 Also he was s tarted on pyridine. No suprapubic or flank pain. Inspection of the general area still looks normal. No scrotal swelling. No penile shaft redness or ulceration. Gallagher catheter is in and a draining yellow urine with areas of blood and streaks of blood. His urine output was 650 yesterday morning and 1700 ml today. Hemodynamically stable and blood pressure is 120/69. Afebrile. Repeat labs and creatinine still pending Urine and blood culture pending Patient is currently on ceftriaxone. Also he is on normal saline at 75 mL/h Objective - Vital Signs Vital signs: Vital Signs Temp 97.8 F 01/27/21 07:17 Pulse 69 01/27/21 07:17 Resp 16 01/27/21 07:17 BP 120/69 01/27/21 07:17 Pulse Ox 100 01/27/21 07:17 Intake & Output 01/26/21 01/27/21 01/27/21 18:59 06:59 18:59 Intake Total 1200 Output Total 1700 Balance -500 Intake: Oral 1200 Output: Urine 1700 Other: Voiding Method Indwelling Catheter - Exam GENERAL: The patient is alert and oriented x3, not in any acute distress. Well developed, well nourished. HEENT: Pupils are round and equally reacting to light. EOMI. No scleral icterus. No conjunctival pallor. Normocephalic, atraumatic. No pharyngeal erythema. No thyromegaly. CARDIOVASCULAR: S1 and S2 present. No murmurs, rubs, or gallops. PULMONARY: Chest is clear to auscultation, no wheezing or crackles. ABDOMEN: Soft, nontender, nondistended, normoactive bowel sounds. No palpable organomegaly. MUSCULOSKELETAL: No joint swelling or deformity. Genital area: penis does not look red or swollen, no significant penile tenderness. no scrotal swelling or tenderness. Inspection of the area looks normal however patient complaining of from pain inside the shaft of the penis. Gallagher catheter is in and draining urine. EXTREMITIES: No cyanosis, clubbing, or pedal edema. NEUROLOGICAL: Gross neurological examination did not reveal any focal deficits. SKIN: No rashes. No petechiae - Labs CBC & Chem 7: 01/26/21 05:41 01/26/21 05:41 Labs: Abnormal Lab Results - Last 24 Hours (Table) 01/26/21 Range/Units 05:41 Procalcitonin 0.22 H (0.02-0.09) ng/mL Microbiology - Last 24 Hours (Table) 01/25/21 21:58 Blood Culture - Preliminary Blood No Growth after 24 hours 01/25/21 21:58 Blood Culture - Preliminary Blood No Growth after 24 hours Assessment and Plan Assessment: Acute kidney injury Acute urinary retention with bilateral hydronephrosis. Status post Gallagher catheter in the emergency room Acute urinary tract infection Hypertension, controlled Plan: this is a pleasant 60 years old male who presents with UTI, urinary retention and hydronephrosis. Continue with ceftriaxone and follow-up urine culture. Continue with Gallagher catheter Urology consult. Start the patient on Flomax Follow-up creatinine level Continue with Norvasc 5 mg. Pain management abs and medication were reviewed.. Continue same treatment. Continue with symptomatic treatment. Resume home medication. Monitor lytes and vitals. DVT and GI prophylaxis. Further recommendations depends on the clinical course of the patient DVT prophylaxis: Subcutaneous heparin GI Prophylaxis: Pepcid Prognosis is guarded
[2021-01-27] MEDS: METOPROLOL SUCCINATE (ER) 25 MG TAB.ER.24H PO SCH (09:11)
[2021-01-27] MEDS: amLODIPine 5 MG TAB PO SCH (09:11)
[2021-01-27] MEDS: HEPARIN SODIUM,PORCINE/PF 5,000 UNIT/0.5 ML SYRINGE SQ SCH ×2 (09:11→21:48)
[2021-01-27] MEDS: PHENAZOPYRIDINE 100 MG TAB PO SCH ×2 (09:12→23:11)
[2021-01-27] MEDS: FAMOTIDINE 20 MG TAB PO SCH (09:13)
[2021-01-27 11:37] LABS: Basophils # (A) 0.07 X 10*3/uL (0.00-0.10); Basophils % (A) 0.6 %; Eosinophils # (A) 0.13 X 10*3/uL (0.04-0.35); HCT 35.7 % (39.6-50.0); HGB 11.5 g/dL (13.0-17.0); Lymphocytes # (A) 0.75 X 10*3/uL (0.90-5.00); Lymphocytes % (A) 5.9 %; MCH 30.4 pg (27.0-32.0); MCHC 32.2 g/dL (32.0-37.0); MCV 94.4 fL (80.0-97.0); Monocytes # (A) 1.05 X 10*3/uL (0.20-1.00); Monocytes % (A) 8.3 %; Neutrophils % (A) 83.6 %; Platelet Count 585 X 10*3/uL (140-440); RBC 3.78 X 10*6/uL (4.40-5.60); RDW 13.8 % (11.5-14.5); WBC 12.68 X 10*3/uL (4.50-10.00)
[2021-01-27 12:08] LABS: Anion Gap 12.3 mmol/L (4.00-12.00); BUN/Creat Ratio 14.17 Ratio (12.00-20.00); Carbon Dioxide 18.7 mmol/L (21.6-31.8); Non-African American GFR(CKD) 28.5 (60.0-200.0); Potassium 4.2 mmol/L (3.5-5.5)
--- NOTE | 2021-01-27 13:39 | P.GSCN ---
History of Present Illness Consult date: 01/27/21 Reason for Consult: urinary retention, bilateral hydronephrosis History of present illness: this is a 60-year-old male admitted to the hospital with acute kidney injury, urinary retention. He underwent a CT scan on presentation that showed si gnificantly distended bladder with bilateral hydroureteronephrosis. He indicated for the past few months he's been having difficulty voiding, he's been complaining of a weak stream, and straining with urination. Denies any gross hematuria or dysuria. No previous history of urinary retention, he has not followed up with anybody for his urinary retention. No previous history of kidney stones. bradley catheter was placed in the ER, amount unknown. On presentation his creatinine was elevated at 3.06 from a baseline of 1.1. His creatinine is trending down following catheter insertion, it is down to 2.4 this morning Review of Systems - Constitutional Denies fever, Denies weight loss - EENT Ears, nose, mouth and throat: Denies dysphagia - Cardiovascular Denies chest pain, Denies shortness of breath - Respiratory Denies cough, Denies 7 - Gastrointestinal Reports as per HPI - Genitourinary Reports urinary retention, Denies dysuria, Denies flank pain, Denies hematuria - Integumentary Denies rash, Denies unusual bruising - Neurological Denies headaches, Denies syncope - Hematologic/Lymphatic Denies easy bleeding, Denies easy bruising Past Medical History Past Medical History: Atrial Fibrillation, Hypertension, Pneumonia Additional Past Medical History / Comment(s): 20 years ago - collapsed lung, chest tube History of Any Multi-Drug Resistant Organisms: None Reported Past Surgical History: Ablation Additional Past Surgical History / Comment(s): C/T PLACEMENT Past Anesthesia/Blood Transfusion Reactions: No Reported Reaction Past Psychological History: No Psychological Hx Reported Smoking Status: Never smoker Past Alcohol Use History: Rare Past Drug Use History: Methamphetamine - Past Family History Father Family Medical History: Unable to Obtain Additional Family Medical History / Comment(s): . Mother Family Medical History: Deep Vein Thrombosis (DVT) Medications and Allergies Home Medications Medication Instructions Recorded Confirmed Type Metoprolol Succinate [Toprol XL] 50 mg PO DAILY 04/23/20 01/25/21 History Ibuprofen [Motrin Ib] 200 - 800 mg PO Q6H PRN 01/25/21 01/25/21 History Allergies Allergy/AdvReac Type Severity Reaction Status Date / Time No Known Allergies Allergy Verified 01/25/21 21:25 Surgical - Exam Vital Signs Temp Pulse Resp BP Pulse Ox 99 F 86 18 140/88 99 01/25/21 20:08 01/25/21 20:08 01/25/21 20:08 01/25/21 20:08 01/25/21 20:08 - General no distress, no pain - Eyes PERRL, normal ocular movement - ENT normal nares, normal mucosa - Respiratory normal expansion, normal respiratory effort - Abdomen Abdomen: soft, non tender - Psychiatric oriented to time, oriented to person, oriented to place Results - Labs 01/27/21 07:43 01/27/21 07:43 Abnormal Lab Results - Last 24 Hours (Table) 01/26/21 01/27/21 01/27/21 Range/Units 05:41 07:43 07:43 WBC 12.68 H (4.50-10.00) X 10*3/uL RBC 3.78 L (4.40-5.60) X 10*6/uL Hgb 11.5 L (13.0-17.0) g/dL Hct 35.7 L (39.6-50.0) % Plt Count 585 H (140-440) X 10*3/uL Absolute Nucleated RBC 0.03 H (0.00-0.00) X 10*3/uL Immature Gran # 0.08 H (0.00-0.04) X 10*3/uL Neutrophils # 10.60 H (1.80-7.70) X 10*3/uL Lymphocytes # 0.75 L (0.90-5.00) X 10*3/uL Monocytes # 1.05 H (0.20-1.00) X 10*3/uL NRBC/100 WBC Diff 0.2 H (0.0-0.0) /100 WBCS Carbon Dioxide 18.7 L (21.6-31.8) mmol/L Anion Gap 12.30 H (4.00-12.00) mmol/L BUN 34.0 H (9.0-27.0) mg/dL Creatinine 2.4 H (0.6-1.5) mg/dL Est GFR (CKD-EPI)AfAm 33.0 L (60.0-200.0) Est GFR (CKD-EPI)NonAf 28.5 L (60.0-200.0) Glucose 151 H (70-110) mg/dL Procalcitonin 0.22 H (0.02-0.09) ng/mL Microbiology - Last 24 Hours (Table) 01/25/21 20:57 Urine Culture - Preliminary Urine,Voided Gram Neg Bacilli 01/25/21 21:58 Blood Culture - Preliminary Blood No Growth after 24 hours 01/25/21 21:58 Blood Culture - Preliminary Blood No Growth after 24 hours Diabetes panel 01/27/21 Range/Units 07:43 Sodium 137 (135-145) mmol/L Potassium 4.2 (3.5-5.5) mmol/L Chloride 106 (96-109) mmol/L Carbon Dioxide 18.7 L (21.6-31.8) mmol/L BUN 34.0 H (9.0-27.0) mg/dL Creatinine 2.4 H (0.6-1.5) mg/dL Glucose 151 H (70-110) mg/dL Calcium 9.0 (8.7-10.3) mg/dL Calcium panel 01/27/21 Range/Units 07:43 Calcium 9.0 (8.7-10.3) mg/dL Pituitary panel 01/27/21 Range/Units 07:43 Sodium 137 (135-145) mmol/L Potassium 4.2 (3.5-5.5) mmol/L Chloride 106 (96-109) mmol/L Carbon Dioxide 18.7 L (21.6-31.8) mmol/L BUN 34.0 H (9.0-27.0) mg/dL Creatinine 2.4 H (0.6-1.5) mg/dL Glucose 151 H (70-110) mg/dL Calcium 9.0 (8.7-10.3) mg/dL Adrenal panel 01/27/21 Range/Units 07:43 Sodium 137 (135-145) mmol/L Potassium 4.2 (3.5-5.5) mmol/L Chloride 106 (96-109) mmol/L Carbon Dioxide 18.7 L (21.6-31.8) mmol/L BUN 34.0 H (9.0-27.0) mg/dL Creatinine 2.4 H (0.6-1.5) mg/dL Glucose 151 H (70-110) mg/dL Calcium 9.0 (8.7-10.3) mg/dL Assessment and Plan Assessment: this is a 60-year-old male admitted to the hospital with acute kidney injury, bilateral hydronephrosis and urinary retention. Bradley was placed, obtaining is unknown. His hydronephrosis is secondary to his significantly distended bladder. Has voiding issues at baseline -Continue Flomax, patient will need to be discharged on Flomax -discharge patient with Bradley catheter,Can follow-up in 10 days for a trial of void
[2021-01-27] MEDS: SODIUM CHLORIDE 0.9% 1,000 ML IV SCH (16:34)
[2021-01-27] MEDS: TAMSULOSIN 0.4 MG CAP.ER.24H PO SCH (16:34)
[2021-01-28] MEDS: HYDROmorphone 1 MG/ML 1 ML SYRINGE IVP PRN ×6 (02:36→20:04)
[2021-01-28] MEDS: SODIUM CHLORIDE 0.9% 1,000 ML IV SCH ×2 (06:51→16:48)
[2021-01-28] MEDS: FAMOTIDINE 20 MG TAB PO SCH (09:01)
[2021-01-28] MEDS: amLODIPine 5 MG TAB PO SCH (09:01)
[2021-01-28] MEDS: HEPARIN SODIUM,PORCINE/PF 5,000 UNIT/0.5 ML SYRINGE SQ SCH ×2 (09:01→20:03)
[2021-01-28] MEDS: METOPROLOL SUCCINATE (ER) 25 MG TAB.ER.24H PO SCH (09:01)
[2021-01-28] MEDS: PHENAZOPYRIDINE 100 MG TAB PO SCH ×2 (09:02→20:03)
[2021-01-28] MEDS ORDERED: LEVOFLOXACIN 500MG-D5W PMX 500 MG in DEXTROSE/WATER 1 100ML.BAG IVPB STA (15:48)
--- NOTE | 2021-01-28 15:51 | P.PN ---
Subjective Patient presents because of flank pain associated with dysuria and urgency and increased frequency of urination. His symptoms has been going on for 2 weeks. No significant abdominal pain or suprapubic pain, only mild intermittent right flank pain. His pain mainly in the penus. He rated as 7/10.non radiating , relieved with pain medications Also he had suprapubic discomfort. Bladder scan showed 1 L of urine retention. Also because of his pain, we recommended to change his Gallagher catheter to smaller size Vital signs stable, blood pressure on the high side 182/103 Admission labs showing leukocytosis of 17.9 and 13.7, hemoglobin 12.[address] atelets 619. Basic metabolic panel showing elevated creatinine of 3.0, down to 2.7. Rest of BMP and liver enzymes are unremarkable. Urinalysis is suspicious for infections with moderate blood and large leukocyte esterase and WC a more than 182. CT of the abdomen and pelvis without contrast: Dilated urinary bladder with bilateral hydronephrosis and hydroureter. No renal calculus. 01/27/2021 Patient with less pain in his penile shaft today after increasing his Dilaudid 1 mg every 3 hours. Which helps to bring his pain down to 3/10 Also he was started on pyridine. No suprapubic or flank pain. Inspection of the general area still looks normal. No scrotal swelling. No penile shaft redness or ulceration. Gallagher catheter is in and a draining yellow urine with areas of blood and streaks of blood. His urine output was 650 yesterday morning and 1700 ml today. Hemodynamically stable and blood pressure is 120/69. Afebrile. Repeat labs and creatinine still pending Urine and blood culture pending Patient is currently on ceftriaxone. Also he is on normal saline at 75 mL/h 01/28/2021 Physician today still have persistent symptoms and pain although is better controlled with Dilaudid 1 mg every 3 hours. There is in place and draining more clear urine today and IV fluid running at normal saline 75 mL/h. Creatinine is trending down 2.4 as of yesterday compared to 3.0 on admission. 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 Discontinue ceftriaxone, one-time dose of Levaquin. Consult infectious disease team Continue with the Flomax. Urology e team valuated the patient Patient is with a Gallagher catheter since admission Objective - Vital Signs Vital signs: Vital Signs Temp 98.6 F 01/28/21 08:00 Pulse 76 01/28/21 08:00 Resp 16 01/28/21 08:00 BP 136/82 01/28/21 08:00 Pulse Ox 98 01/28/21 08:00 Intake & Output 01/27/21 01/28/21 01/28/21 18:59 06:59 18:59 Output Total 1300 1999 1600 Balance -1299 Output: Urine 1300 1999 1600 Other: Voiding Method Indwelling Catheter Indwelling Catheter - Exam GENERAL: The patient is alert and oriented x3, not in any acute distress. Well developed, well nourished. HEENT: Pupils are round and equally reacting to light. EOMI. No scleral icterus. No conjunctival pallor. Normocephalic, atraumatic. No pharyngeal erythema. No thyromegaly. CARDIOVASCULAR: S1 and S2 present. No murmurs, rubs, or gallops. PULMONARY: Chest is clear to auscultation, no wheezing or crackles. ABDOMEN: Soft, nontender, nondistended, normoactive bowel sounds. No palpable organomegaly. MUSCULOSKELETAL: No joint swelling or deformity. Genital area: penis does not look red or swollen, no significant penile tenderness. no scrotal swelling or tenderness. Inspection of the area looks normal however patient complaining of from pain inside the shaft of the penis. Gallagher catheter is in and draining urine. EXTREMITIES: No cyanosis, clubbing, or pedal edema. NEUROLOGICAL: Gross neurological examination did not reveal any focal deficits. SKIN: No rashes. No petechiae - Labs CBC & Chem 7: 01/27/21 07:43 01/27/21 07:43 Labs: Microbiology - Last 24 Hours (Table) 01/25/21 20:57 Urine Culture - Final Urine,Voided Morganella morganii 01/25/21 21:58 Blood Culture - Preliminary Blood No Growth after 48 hours 01/25/21 21:58 Blood Culture - Preliminary Blood No Growth after 48 hours Assessment and Plan Assessment: Acute kidney injury, improving Acute urinary retention with bilateral hydronephrosis. Status post Gallagher catheter in the emergency room Acute urinary tract infection Hypertension, controlled Plan: this is a pleasant 60 years old male who presents with UTI, urinary retention and hydronephrosis. Infectious disease consult for antibiotic management Continue with Gallagher catheter Urology consult. Start the patient on Flomax Follow-up creatinine level Continue with Norvasc 5 mg. Pain management abs and medication were reviewed.. Continue same treatment. Continue with symptomatic treatment. Resume home medication. Monitor lytes and vitals. DVT and GI prophylaxis. Further recommendations depends on the clinical course of the patient DVT prophylaxis: Subcutaneous heparin GI Prophylaxis: Pepcid Prognosis is guarded
[2021-01-28] MEDS: TAMSULOSIN 0.4 MG CAP.ER.24H PO SCH (16:49)
[2021-01-28] MEDS: CEFEPIME 2 GM in SODIUM CHLORIDE 0.9% 100 ML IVPB SCH (20:03)
[2021-01-29] MEDS: HYDROmorphone 1 MG/ML 1 ML SYRINGE IVP PRN ×3 (05:33→20:21)
--- NOTE | 2021-01-29 08:22 | P.CONS ---
History of Present Illness - Reason for Consult Consult date: 01/28/21 MDRO UTI Requesting physician: Dae E Sheet - Chief Complaint dysuria and difficulty urination x few days - History of Present Illness History of present illness : Patient is a 60-year male presenting to the ER 3 days ago for evaluation of urinary symptoms of dysuria increased urgency and did have a symptoms of incomplete emptying of the bladder and some difficulty urination patient also complains of pain to the right flank area more of a dull aching 4-5 out of 10 and no radiation patient did have associated nausea but no vomiting with the symptoms the patient was evaluated by ER physician on arrival the patient did have low-grade fever of 99 F did have white count of 17.9 thousand with a left shift did have elevated BUN and creatinine positive UA with urine has been subsequently finalized with a drug- resistant Morganella that has prompted this infectious disease consultation patient did have a CT abdominal pelvis dilated urinary bladder with bilateral hydronephrosis and hydroureter patient has been evaluated by urology Flomax has been added and recommending Gallagher catheter Review of system: CONSTITUTIONAL: Positive for weakness along with low-grade fever. EYES: No complaint. ENT: No complaint. RESPIRATORY: No complaint. CARDIOVASCULAR: No complaint. GENITOURINARY: As per history of present illness. GASTROINTESTINAL: No complaint. MUSCULOSKELETAL: No complaint. INTEGUMENTARY: No complaint. PSYCHOLOGIC: No complaint. ENDOCRINE: No complaint. NEUROLOGIC: No complaint. Past medical history : Reviewed, documented below Past surgical history : Reviewed, documented below Social history: Reviewed, documented below Medications: Reviewed, as documented below GENERAL DESCRIPTION: Middle-aged male lying in bed, no distress. No tachypnea or accessory muscle of respiration use. HEENT: Shows Pallor , no scleral icterus. Oral mucous membrane is dry. NECK: Trachea central, no thyromegaly. LUNGS: Unlabored breathing. Clear to auscultation anteriorly. No wheeze or crackle. HEART: S1, S2, regular rate and rhythm. ABDOMEN: Soft, no tenderness , guarding or rigidity EXTREMITIES: No edema of feet. SKIN: No rash, no masses palpable. NEUROLOGICAL: The patient is awake, alert, oriented x3, mood and affect normal. LABS AND RADIOLOGY: Reviewed results see below Assessment : Patient presented to hospital with low-grade fever dysuria and incomplete emptying of the bladder in this patient noticed to have significant distention of the bladder and bilateral hydronephrosis secondary to urinary outflow obstruction did have a positive UA now with evidence of drug-resistant Morganella urinary tract infection Plan: 1-start the patient on cefepime 2 g every 12 hours dose adjusted to the kidney function 2-gentle IV fluid 3-hopefully will be able to finish therapy with oral antibiotics no need for PICC line We will follow on clinical condition and cultures to further adjust medication if needed Thank you for this consultation we will follow the patient along with you Past Medical History Past Medical History: Atrial Fibrillation, Hypertension, Pneumonia Additional Past Medical History / Comment(s): 20 years ago - collapsed lung, chest tube History of Any Multi-Drug Resistant Organisms: None Reported Past Surgical History: Ablation Additional Past Surgical History / Comment(s): C/T PLACEMENT Past Anesthesia/Blood Transfusion Reactions: No Reported Reaction Past Psychological History: No Psychological Hx Reported Smoking Status: Never smoker Past Alcohol Use History: Rare Past Drug Use History: Methamphetamine - Past Family History Father Family Medical History: Unable to Obtain Additional Family Medical History / Comment(s): . Mother Family Medical History: Deep Vein Thrombosis (DVT) Medications and Allergies Home Medications Medication Instructions Recorded Confirmed Type Metoprolol Succinate [Toprol XL] 50 mg PO DAILY 04/23/20 01/25/21 History Ibuprofen [Motrin Ib] 200 - 800 mg PO Q6H PRN 01/25/21 01/25/21 History Allergies Allergy/AdvReac Type Severity Reaction Status Date / Time No Known Allergies Allergy Verified 01/25/21 21:25 Physical Exam Vitals: Vital Signs Temp Pulse Resp BP Pulse Ox 01/28/21 08:00 98.6 F 76 16 136/82 98 01/28/21 02:00 97.9 F 77 17 145/87 99 01/27/21 19:33 97.7 F 67 16 150/93 98 Intake and Output 01/28/21 01/28/21 01/28/21 06:59 14:59 22:59 Output Total 1999 1599 Balance -1999 -1599 Output: Urine 1999 1599 Results CBC & Chem 7: 01/27/21 07:43 01/27/21 07:43 Labs: Microbiology - Last 24 Hours (Table) 01/25/21 20:57 Urine Culture - Final Urine,Voided Morganella morganii 08/16/21 21:58 Blood Culture - Preliminary Blood No Growth after 48 hours 01/25/21 21:58 Blood Culture - Preliminary Blood No Growth after 48 hours
[2021-01-29] MEDS: SODIUM CHLORIDE 0.9% 1,000 ML IV SCH (09:19)
[2021-01-29] MEDS: FAMOTIDINE 20 MG TAB PO SCH (09:31)
[2021-01-29] MEDS: METOPROLOL SUCCINATE (ER) 25 MG TAB.ER.24H PO SCH (09:31)
[2021-01-29] MEDS: PHENAZOPYRIDINE 100 MG TAB PO SCH ×2 (09:31→20:22)
[2021-01-29] MEDS: amLODIPine 5 MG TAB PO SCH (09:31)
[2021-01-29] MEDS: CEFEPIME 2 GM in SODIUM CHLORIDE 0.9% 100 ML IVPB SCH ×2 (09:32→20:22)
[2021-01-29] MEDS: HEPARIN SODIUM,PORCINE/PF 5,000 UNIT/0.5 ML SYRINGE SQ SCH ×2 (09:32→20:22)
[2021-01-29 11:12] LABS: Basophils # (A) 0.08 X 10*3/uL (0.00-0.10); Basophils % (A) 0.9 %; Eosinophils # (A) 0.22 X 10*3/uL (0.04-0.35); Eosinophils % (A) 2.4 %; HCT 33.9 % (39.6-50.0); Lymphocytes # (A) 1.21 X 10*3/uL (0.90-5.00); Lymphocytes % (A) 13.3 %; MCH 29.7 pg (27.0-32.0); MCHC 32.4 g/dL (32.0-37.0); MCV 91.6 fL (80.0-97.0); Mean Platelet Volume 9.9 fL (9.5-12.2); Monocytes # (A) 0.93 X 10*3/uL (0.20-1.00); Monocytes % (A) 10.2 %; Neutrophils # (A) 6.61 X 10*3/uL (1.80-7.70); Neutrophils % (A) 72.5 %; Platelet Count 611 X 10*3/uL (140-440); RDW 13.2 % (11.5-14.5); WBC 9.11 X 10*3/uL (4.50-10.00)
[2021-01-29 11:35] LABS: African American GFR (CKD) 36.6 (60.0-200.0); BUN/Creat Ratio 14.55 Ratio (12.00-20.00); Calcium 9.1 mg/dL (8.7-10.3); Non-African American GFR(CKD) 31.6 (60.0-200.0); Potassium 4.6 mmol/L (3.5-5.5)
--- NOTE | 2021-01-29 16:41 | PN ---
PROGRESS NOTE DATE OF SERVICE: 01/29/2021 REASON FOR FOLLOWUP: Complicated urinary tract infection. INTERVAL HISTORY: The patient is afebrile. The patient is feeling slightly better. The patient denies having any chest pain or shortness of breath or cough. No abdominal pain. He did have bowel movement. No diarrhea. PHYSICAL EXAMINATION: Blood pressure 154/88 with a pulse of 69, temperature 98.2. He is 97% on room air. GENERAL DESCRIPTION: General description is a middle-aged male lying in bed in no distress. RESPIRATORY SYSTEM: Unlabored breathing. He is clear to auscultation anteriorly. HEART: S1, S2. Regular rate and rhythm. ABDOMEN: Soft. No tenderness. LABS: Hemoglobin is 11, white count 9.11. BUN of 32, creatinine is 2.2. DIAGNOSTIC IMPRESSION: Patient with Morganella complicated urinary tract infection, covered with cefepime; to continue while inpatient. However, transition to oral antibiotic on discharge and continue with supportive care. MMODL / IJN: [id number] /
[2021-01-29] MEDS: TAMSULOSIN 0.4 MG CAP.ER.24H PO SCH (17:34)
[2021-01-30] MEDS: HYDROmorphone 1 MG/ML 1 ML SYRINGE IVP PRN ×6 (02:59→19:17)
[2021-01-30] MEDS: SODIUM CHLORIDE 0.9% 1,000 ML IV SCH ×3 (07:44→22:10)
[2021-01-30] MEDS: CEFEPIME 2 GM in SODIUM CHLORIDE 0.9% 100 ML IVPB SCH ×2 (07:51→19:19)
[2021-01-30] MEDS: FAMOTIDINE 20 MG TAB PO SCH (07:53)
[2021-01-30] MEDS: HEPARIN SODIUM,PORCINE/PF 5,000 UNIT/0.5 ML SYRINGE SQ SCH ×2 (07:53→19:25)
[2021-01-30] MEDS: amLODIPine 5 MG TAB PO SCH (07:53)
[2021-01-30] MEDS: PHENAZOPYRIDINE 100 MG TAB PO SCH ×3 (07:53→21:44)
[2021-01-30] MEDS: METOPROLOL SUCCINATE (ER) 25 MG TAB.ER.24H PO SCH (07:53)
--- NOTE | 2021-01-30 10:15 | P.PN ---
Subjective Progress Note Date: 01/29/21 Patient presents because of flank pain associated with dysuria and urgency and increased frequency of urination. His symptoms has been going on for 2 weeks. No significant abdominal pain or suprapubic pain, only mild intermittent right flank pain. His pain mainly in the penus. He rated as 7/10.non radiating , relieved with pain medications Also he had suprapubic discomfort. Bladder scan showed 1 L of urine retention. Also because of his pain, we recommended to change his Gallagher catheter to smaller size Vital signs stable, blood pressure on the high side 182/103 Admission labs showing leukocytosis of 17.9 and 13.7, hemoglobin 12.4 and platelets 619. Basic metabolic panel showing elevated creatinine of 3.0, down to 2.7. Rest of BMP and liver enzymes are unremarkable. Urinalysis is suspicious for infections with moderate blood and large leukocyte esterase and WC a more than 182. CT of the abdomen and pelvis without contrast: Dilated urinary bladder with bilateral hydronephrosis and hydroureter. No renal calculus. Objective - Vital Signs Vital signs: Vital Signs Temp 98.2 F 01/29/21 08:00 Pulse 79 01/29/21 08:00 Resp 16 01/29/21 08:00 BP 154/88 01/29/21 08:00 Pulse Ox 97 01/29/21 08:00 Intake & Output 01/28/21 01/29/21 01/29/21 18:59 06:59 18:59 Output Total 1600 2500 Balance -1600 -2500 Output: Urine 1600 2500 Other: Voiding Method Indwelling Catheter - Exam GENERAL: The patient is alert and oriented x3, not in any acute distress. Well developed, well nourished. HEENT: Pupils are round and equally reacting to light. EOMI. No scleral icterus. No conjunctival pallor. Normocephalic, atraumatic. No pharyngeal erythema. No thyromegaly. CARDIOVASCULAR: S1 and S2 present. No murmurs, rubs, or gallops. PULMONARY: Chest is clear to auscultation, no wheezing or crackles. ABDOMEN: Soft, nontender, nondistended, normoactive bowel sounds. No palpable organomegaly. MUSCULOSKELETAL: No joint swelling or deformity. Genital area: penis does not look red or swollen, no significant penile tenderness. no scrotal swelling or tenderness. Inspection of the area looks normal however patient complaining of from pain inside the shaft of the penis. Gallagher catheter is in and draining EXTREMITIES: No cyanosis, clubbing, or pedal edema. NEUROLOGICAL: Gross neurological examination did not reveal any focal deficits. SKIN: No rashes. No petechiae - Labs CBC & Chem 7: 01/29/21 06:26 01/29/21 06:26 Labs: Abnormal Lab Results - Last 24 Hours (Table) 01/29/21 01/29/21 Range/Units 06:26 06:26 RBC 3.70 L (4.40-5.60) X 10*6/uL Hgb 11.0 L (13.0-17.0) g/dL Hct 33.9 L (39.6-50.0) % Plt Count 611 H (140-440) X 10*3/uL Immature Gran # 0.06 H (0.00-0.04) X 10*3/uL BUN 32.0 H (9.0-27.0) mg/dL Creatinine 2.2 H (0.6-1.5) mg/dL Est GFR (CKD-EPI)AfAm 36.6 L (60.0-200.0) Est GFR (CKD-EPI)NonAf 31.6 L (60.0-200.0) Glucose 127 H (70-110) mg/dL Microbiology - Last 24 Hours (Table) 01/25/21 20:57 Urine Culture - Final Urine,Voided Morganella morganii 01/25/21 21:58 Blood Culture - Preliminary Blood No Growth after 72 hours 01/25/21 21:58 Blood Culture - Preliminary Blood No Growth after 72 hours Assessment and Plan Assessment: Acute kidney injury, improving Acute urinary retention with bilateral hydronephrosis. Status post Gallagher catheter in the emergency room Acute urinary tract infection Hypertension, controlled Plan: this is a pleasant 60 years old male who presents with UTI, urinary retention and hydronephrosis. Infectious disease consult for antibiotic management Continue with Gallagher catheter Urology consult. Start the patient on Flomax Follow-up creatinine level Continue with Norvasc 5 mg. Pain management abs and medication were reviewed.. Continue same treatment. Continue with symptomatic treatment. Resume home medication. Monitor lytes and vitals. DVT and GI prophylaxis. Further recommendations depends on the clinical course of the patient DVT prophylaxis: Subcutaneous heparin GI Prophylaxis: Pepcid Prognosis is guarded
[2021-01-30 14:25] LABS: Basophils # (A) 0.2 k/uL (0-0.2); Basophils % (A) 2 %; Eosinophils # (A) 0.4 k/uL (0-0.7); Eosinophils % (A) 4 %; HGB 12.1 gm/dL (13.0-17.5); Lymphocytes # (A) 1.5 k/uL (1.0-4.8); Lymphocytes % (A) 17 %; MCH 30.2 pg (25.0-35.0); MCHC 32.8 g/dL (31.0-37.0); Mean Platelet Volume 7.8; Monocytes # (A) 0.6 k/uL (0-1.0); Monocytes % (A) 7 %; Neutrophils # (A) 5.9 k/uL (1.3-7.7); Neutrophils % (A) 68 %; Platelet Count 570 k/uL (150-450); RBC 4.03 m/uL (4.30-5.90); RDW 13.3 % (11.5-15.5); WBC 8.7 k/uL (3.8-10.6)
[2021-01-30 14:44] LABS: African American GFR (CKD) 40 (>60 ml/min/1.73 sqM); Anion Gap 9 mmol/L; Blood Urea Nitrogen 35 mg/dL (9-20); Calcium 9.3 mg/dL (8.4-10.2); Carbon Dioxide 26 mmol/L (22-30); Chloride 100 mmol/L (98-107); Glucose 97 mg/dL (74-99); Non-African American GFR(CKD) 34 (>60 ml/min/1.73 sqM); Potassium 4.4 mmol/L (3.5-5.1); Sodium 135 mmol/L (137-145)
--- NOTE | 2021-01-30 16:05 | PN ---
PROGRESS NOTE DATE OF SERVICE: 01/30/2021 REASON FOR FOLLOWUP: Morganella complicated urinary tract infection. INTERVAL HISTORY: The patient is currently afebrile. The patient is still complaining of no chest pain, shortness of breath or cough. No vomiting. No abdominal pain or diarrhea. PHYSICAL EXAMINATION: Blood pressure 115/76, pulse 71, temperature is 97.8. He is 97% on room air. GENERAL DESCRIPTION: General description is a middle-aged male lying in bed in no distress. RESPIRATORY SYSTEM: Unlabored breathing. Clear to auscultation anteriorly. HEART: S1, S2. Regular rate and rhythm. ABDOMEN: Soft. No tenderness. LABS: Hemoglobin is 12.9, white count 8.7. Blood culture has been negative. DIAGNOSTIC IMPRESSION AND PLAN: Patient with Morganella complicated urinary tract infection in this patient who had significant hydronephrosis from urinary outflow obstruction, status post Gallagher catheter placement. Patient is covered with cefepime; to continue while inpatient. Finish therapy with oral Cipro and close outpatient followup. MMODL / IJN: [id number] /
[2021-01-30] MEDS: TAMSULOSIN 0.4 MG CAP.ER.24H PO SCH (17:46)
--- NOTE | 2021-01-30 19:00 | P.PN ---
Subjective Progress Note Date: 01/30/21 Principal diagnosis: Complicated UTI Distention of bladder and bilateral hydronephrosis secondary to urinary outflow obstruction Patient presents because of flank pain associated with dysuria and urgency and increased frequency of urination. His symptoms has been going on for 2 weeks. No significant abdominal pain or suprapubic pain, only mild intermittent right flank pain. His pain mainly in the penus. He rated as 7/10.non radiating , relieved with pain medications Also he had suprapubic discomfort. Bladder scan showed 1 L of urine retention. Also because of his pain, we recommended to change his Gallagher catheter to smaller size Vital signs stable, blood pressure on the high side 182/103 Admission labs showing leukocytosis of 17.9 and 13.7, hemoglobin 12.4 and platelets 619. Basic metabolic panel showing elevated creatinine of 3.0, down to 2.7. Rest of BMP and liver enzymes are unremarkable. Urinalysis is suspicious for infections with moderate blood and large leukocyte esterase and WC a more than 182. CT of the abdomen and pelvis without contrast: Dilated urinary bladder with bilateral hydronephrosis and hydroureter. No renal calculus. 01/30/2021 Patient is seen and evaluated in room at bedside; no specific complaints Vital signs are reviewed stable with temperature of 97.8, pulse 71, respirations 16 and blood pressure 115/76; O2 saturation of 97% on room air Lab review shows WBC 8.7, hemoglobin 12.1 and platelet count of 570; sodium 135, BUN/creatinine of 35/2.06 Patient is currently on IV cefepime 2 g every 8 hours; ID on board and recommending to renally adjust cefepime 2 g every 12 hours; monitor renal function closely; await final culture results for final adjustment of antibiotic therapy Objective - Vital Signs Vital signs: Vital Signs Temp 97.8 F 01/30/21 07:38 Pulse 71 01/30/21 07:38 Resp 16 01/30/21 07:38 BP 115/76 01/30/21 07:38 Pulse Ox 97 01/30/21 07:38 Intake & Output 01/29/21 01/30/21 01/30/21 18:59 06:59 18:59 Intake Total 1000 Output Total 2600 1100 Balance -1600 -1100 Intake: Intake, IV Titration 1000 Amount Cefepime 2 gm In Sodium 100 Chloride 0.9% 100 ml @ 25 mls/hr IVPB Q12HR [facility] Rx #:[id number] Sodium Chloride 0.9% 1, 900 000 ml @ 75 mls/hr IV . [id number] [facility] Rx#:[id number] Output: Urine 2600 1100 Uretheral (Gallagher) 1100 Other: Voiding Method Indwelling Catheter - Exam GENERAL: The patient is alert and oriented x3, not in any acute distress. Well developed, well nourished. HEENT: Pupils are round and equally reacting to light. EOMI. No scleral icterus. No conjunctival pallor. Normocephalic, atraumatic. No pharyngeal erythema. No thyromegaly. CARDIOVASCULAR: S1 and S2 present. No murmurs, rubs, or gallops. PULMONARY: Chest is clear to auscultation, no wheezing or crackles. ABDOMEN: Soft, nontender, nondistended, normoactive bowel sounds. No palpable organomegaly. MUSCULOSKELETAL: No joint swelling or deformity. Genital area: penis does not look red or swollen, no significant penile tenderness. no scrotal swelling or tenderness. Inspection of the area looks normal however patient complaining of from pain inside the shaft of the penis. Gallagher catheter is in and draining EXTREMITIES: No cyanosis, clubbing, or pedal edema. NEUROLOGICAL: Gross neurological examination did not reveal any focal deficits. SKIN: No rashes. No petechiae - Labs CBC & Chem 7: 01/30/21 14:12 01/30/21 14:12 Labs: Abnormal Lab Results - Last 24 Hours (Table) 01/29/21 01/29/21 Range/Units 06:26 06:26 RBC 3.70 L (4.40-5.60) X 10*6/uL Hgb 11.0 L (13.0-17.0) g/dL Hct 33.9 L (39.6-50.0) % Plt Count 611 H (140-440) X 10*3/uL Immature Gran # 0.06 H (0.00-0.04) X 10*3/uL BUN 32.0 H (9.0-27.0) mg/dL Creatinine 2.2 H (0.6-1.5) mg/dL Est GFR (CKD-EPI)AfAm 36.6 L (60.0-200.0) Est GFR (CKD-EPI)NonAf 31.6 L (60.0-200.0) Glucose 127 H (70-110) mg/dL Microbiology - Last 24 Hours (Table) 01/25/21 21:58 Blood Culture - Preliminary Blood No Growth after 96 hours 01/25/21 21:58 Blood Culture - Preliminary Blood No Growth after 96 hours 01/25/21 20:57 Urine Culture - Final Urine,Voided Morganella morganii Assessment and Plan Assessment: Acute kidney injury, improving Acute urinary retention with bilateral hydronephrosis. Status post Gallagher catheter in the emergency room Acute urinary tract infection Hypertension, controlled Plan: this is a pleasant 60 years old male who presents with UTI, urinary retention and hydronephrosis. Infectious disease consult for antibiotic management Continue with Gallagher catheter Urology consult. Start the patient on Flomax Follow-up creatinine level Continue with Norvasc 5 mg. Pain management abs and medication were reviewed.. Continue same treatment. Continue with symptomatic treatment. Resume home medication. Monitor lytes and vitals. DVT and GI prophylaxis. Further recommendations depends on the clinical course of the patient DVT prophylaxis: Subcutaneous heparin GI Prophylaxis: Pepcid Prognosis is guarded
[2021-01-31] MEDS: HYDROmorphone 1 MG/ML 1 ML SYRINGE IVP PRN ×3 (02:46→10:31)
[2021-01-31] MEDS: FAMOTIDINE 20 MG TAB PO SCH (07:14)
[2021-01-31] MEDS: CEFEPIME 2 GM in SODIUM CHLORIDE 0.9% 100 ML IVPB SCH (07:15)
[2021-01-31 08:49] VITALS: TEMP 97.7
[2021-01-31] MEDS: METOPROLOL SUCCINATE (ER) 25 MG TAB.ER.24H PO SCH (10:24)
[2021-01-31] MEDS: amLODIPine 5 MG TAB PO SCH (10:25)
[2021-01-31] MEDS: PHENAZOPYRIDINE 100 MG TAB PO SCH (10:25)
[2021-01-31] MEDS: HEPARIN SODIUM,PORCINE/PF 5,000 UNIT/0.5 ML SYRINGE SQ SCH (10:25)
[2021-01-31 11:04] LABS: Basophils # (A) 0.12 X 10*3/uL (0.00-0.10); Basophils % (A) 1.3 %; Eosinophils # (A) 0.37 X 10*3/uL (0.04-0.35); Eosinophils % (A) 3.9 %; HCT 36.1 % (39.6-50.0); HGB 11.5 g/dL (13.0-17.0); Lymphocytes # (A) 1.53 X 10*3/uL (0.90-5.00); Lymphocytes % (A) 16.3 %; MCH 29.6 pg (27.0-32.0); MCHC 31.9 g/dL (32.0-37.0); Mean Platelet Volume 9.7 fL (9.5-12.2); Monocytes # (A) 0.79 X 10*3/uL (0.20-1.00); Monocytes % (A) 8.4 %; Platelet Count 553 X 10*3/uL (140-440); RBC 3.88 X 10*6/uL (4.40-5.60); RDW 13.2 % (11.5-14.5); WBC 9.41 X 10*3/uL (4.50-10.00)
[2021-01-31 12:33] LABS: African American GFR (CKD) 41.1 (60.0-200.0); Anion Gap 8.4 mmol/L (4.00-12.00); Calcium 9.6 mg/dL (8.7-10.3); Carbon Dioxide 27.6 mmol/L (21.6-31.8); Non-African American GFR(CKD) 35.5 (60.0-200.0); Potassium 5.1 mmol/L (3.5-5.5)
--- NOTE | 2021-01-31 14:45 | PN ---
PROGRESS NOTE DATE OF SERVICE: 01/31/2021 REASON FOR FOLLOWUP: Morganella complicated urinary tract infection. INTERVAL HISTORY: The patient is afebrile. The patient is feeling better, breathing comfortably. No chest pain, shortness of breath or cough. No nausea, no vomiting. No abdominal pain or diarrhea. PHYSICAL EXAMINATION: Blood pressure 127/83 with pulse of 59, temperature 97.7. He is 98% on room air. GENERAL DESCRIPTION: General description is a middle-aged male up in the room. RESPIRATORY SYSTEM: Unlabored breathing. Clear to auscultation anteriorly. HEART: S1, S2. Regular rate and rhythm. ABDOMEN: Soft. No tenderness. LABS: Hemoglobin is 11.5, white count 9.41, BUN of , creatinine 2.0. DIAGNOSTIC IMPRESSION AND PLAN: Patient with a complicated urinary tract infection infection with Morganella, and this patient seems to have shown overall clinical improvement on cefepime. Finish therapy with oral Cipro. Prescription was sent to the pharmacy. Close outpatient followup. MMODL / IJN: [id number] /
[2021-01-31] MEDS: SODIUM CHLORIDE 0.9% 1,000 ML IV SCH (15:33)
[2021-01-31 15:48] VITALS: BP 115/71; PULSE 71; RESP 18
== END 2021-01-31 16:39 | disposition home or self-care (01) | DRG 690 ==
LOC: EC 19:53 → 5NMEDONC 21:32 → 4SSUR 01-26 18:14
PROVIDERS: ADMIT Internal Medicine; ATTEND Internal Medicine
DX: N13.6 Pyonephrosis (principal); N17.9 Acute kidney failure, unspecified; I10 Essential (primary) hypertension; I48.91 Unspecified atrial fibrillation; Z79.899 Other long term (current) drug therapy; Z87.891 Personal history of nicotine dependence; M54.9 Dorsalgia, unspecified
CPT/HCPCS: 36415; 74176; 80048; 80053; 81001; 83605; 83690; 83735; 84145; 85025; 87040; 87077; 87086; 87186; 96361; 96374; 96375; 99285

== ENCOUNTER 2021-02-09 09:50 | Emergency (ER) | payer OTHER ==
[2021-02-09 09:55] VITALS: BP 137/86; PULSE 62; RESP 18; TEMP 97.5
--- NOTE | 2021-02-09 10:20 | ED ---
General Adult HPI - General Chief complaint: Urogenital Stated complaint: needs catheter out Time Seen by Provider: 02/09/21 10:01 Source: patient, RN notes reviewed Mode of arrival: ambulatory Limitations: no limitations - History of Present Illness Initial comments: Is a 60-year-old female that presents to emergency department to have his urinary catheter removed. He notes that he was discharged in the hospital with her for, acute UTI was told to keep it in for 6 days. He notes that he follow- up with a doctor at the [facility] were told him even in for 10 more days. He notes that he called the urologist again but they do not accept his insurance we cannot come in to get removed. He comes in just asking to have it removed today. He denied any pain discomfort burning frequency. He was otherwise a well-appearing 60-year-old male in no apparent distress or pain. He denied any chest pain shortness of breath headache nausea vomiting diarrhea constipation fever fatigue chills. - Related Data Home Medications Medication Instructions Recorded Confirmed Ibuprofen [Motrin Ib] 200 - 800 mg PO Q6H PRN 01/25/21 01/25/21 Previous Rx's Medication Instructions Recorded Ciprofloxacin HCl [Cipro] 500 mg PO Q12H 10 Days #20 tab 01/31/21 Metoprolol Succinate (ER) [Toprol 25 mg PO DAILY #30 tab.er.24h 01/31/21 XL] Phenazopyridine [Pyridium] 200 mg PO Q12HR #7 tab 01/31/21 Tamsulosin [Flomax] 0.4 mg PO PC-SUPPER #30 cap.er.24h 01/31/21 amLODIPine [Norvasc] 5 mg PO DAILY #30 tab 01/31/21 Allergies Allergy/AdvReac Type Severity Reaction Status Date / Time No Known Allergies Allergy Verified 02/09/21 09:54 Review of Systems ROS Statement: Those systems with pertinent positive or pertinent negative responses have been documented in the HPI. ROS Other: All systems not noted in ROS Statement are negative. Past Medical History Past Medical History: Atrial Fibrillation, Hypertension, Pneumonia Additional Past Medical History / Comment(s): 20 years ago - collapsed lung, chest tube History of Any Multi-Drug Resistant Organisms: CRE, Other MDRO Date of last positivie culture/infection: 01/25/21 MDRO Source:: URINE Past Surgical History: Ablation Additional Past Surgical History / Comment(s): C/T PLACEMENT Past Anesthesia/Blood Transfusion Reactions: No Reported Reaction Past Psychological History: No Psychological Hx Reported Smoking Status: Never smoker Past Alcohol Use History: Rare Past Drug Use History: Methamphetamine - Past Family History Father Family Medical History: Unable to Obtain Additional Family Medical History / Comment(s): . Mother Family Medical History: Deep Vein Thrombosis (DVT) General Exam Limitations: no limitations General appearance: alert, in no apparent distress Head exam: Present: atraumatic, normocephalic, normal inspection Eye exam: Present: normal appearance, PERRL, EOMI. Absent: scleral icterus, conjunctival injection, periorbital swelling Neck exam: Present: normal inspection Respiratory exam: Present: normal lung sounds bilaterally. Absent: respiratory distress, wheezes, rales, rhonchi, stridor Cardiovascular Exam: Present: regular rate, normal rhythm, normal heart sounds. Absent: systolic murmur, diastolic murmur, rubs, gallop, clicks GI/Abdominal exam: Present: soft, normal bowel sounds. Absent: distended, tenderness, guarding, rebound, rigid Extremities exam: Present: normal inspection, full ROM, normal capillary refill. Absent: tenderness, pedal edema, joint swelling, calf tenderness Neurological exam: Present: alert, oriented X3 Psychiatric exam: Present: normal affect, normal mood Skin exam: Present: warm, dry, intact, normal color. Absent: rash Course Vital Signs 02/09/21 09:51 Temperature 97.5 F L Pulse Rate 62 Respiratory 18 Rate Blood Pressure 137/86 O2 Sat by Pulse 98 Oximetry Medical Decision Making - Medical Decision Making 60-year-old male wanting his urinary catheter removed. Patient denied any other complaints and physical exam was within normal limits. Nurse removed catheter without complication. Case discussed with Dr. Miranda, patient can discharge home with follow-up to primary care. Disposition Clinical Impression: Urinary catheter insertion/adjustment/removal Disposition: HOME SELF-CARE Condition: Stable Instructions (If sedation given, give patient instructions): Urinary Tract Infection in Men (ED) Additional Instructions: Please return to the Emergency Department if symptoms worsen or any other concerns. Follow-up primary care in 1-2 days. Increase oral fluids. Is patient prescribed a controlled substance at d/c from ED?: No Referrals: Bertha Olea MD [Primary Care Provider] - 1-2 days Time of Disposition: 10:20
== END 2021-02-09 10:38 | disposition home or self-care (01) ==
LOC: EC 09:50
DX: Z46.6 Encounter for fitting and adjustment of urinary device (principal); I48.91 Unspecified atrial fibrillation; I10 Essential (primary) hypertension
CPT/HCPCS: 99283

== ENCOUNTER 2022-03-28 03:30 | Inpatient (IN) | payer OTHER ==
[2022-03-28] MEDS ORDERED: MORPHINE SULFATE 4 MG/ML SYRINGE IV STA (03:52)
[2022-03-28] MEDS ORDERED: SODIUM CHLORIDE 0.9% 500 ML 500 ML IV STA (03:52)
[2022-03-28] MEDS ORDERED: ONDANSETRON 4 MG/2 ML VIAL IVP STA (03:52)
[2022-03-28 03:59] LABS: Basophils % (A) 0 %; Eosinophils % (A) 0 %; HCT 42.1 % (39.0-53.0); HGB 13.8 gm/dL (13.0-17.5); Hypochromasia Slight; Lymphocytes # (A) 0.7 k/uL (1.0-4.8); Lymphocytes % (A) 4 %; MCH 30.7 pg (25.0-35.0); MCHC 32.7 g/dL (31.0-37.0); Mean Platelet Volume 8.2; Monocytes # (A) 0.6 k/uL (0-1.0); Monocytes % (A) 4 %; Neutrophils # (A) 15.6 k/uL (1.3-7.7); Neutrophils % (A) 91 %; Platelet Count 344 k/uL (150-450); RBC 4.48 m/uL (4.30-5.90); RDW 13.4 % (11.5-15.5); WBC 17.1 k/uL (3.8-10.6)
--- NOTE | 2022-03-28 04:08 | ED ---
Abdominal Pain HPI - General Chief Complaint: Abdominal Pain Stated Complaint: Abdominal Pain Time Seen by Provider: 03/28/22 03:48 Source: patient Mode of arrival: EMS Limitations: no limitations - History of Present Illness Initial Comments: This patient is 61-year-old man who presents with the acute onset of sharp right lower quadrant pain approximately 1-2 hours ago. Patient states she had been in bed trying to sleep when he experienced severe sharp pain. On the pains not resolve called EMS. Patient states he is concerned this is appendix though he cannot state why he believes is other than the location. Appetite had been normal. No change in bowel movements. No vomiting. Patient denies change in urination. MD Complaint: abdominal pain Onset/Timin -: hour(s) Location: RLQ Radiation: none Migration to: no migration Severity: severe Quality: sharp Consistency: constant Improves With: nothing Worsens With: nothing Associated Symptoms: nausea, vomiting - Related Data Home Medications Medication Instructions Recorded Confirmed Metoprolol Tartrate [Lopressor] 50 mg PO BID 03/28/22 03/28/22 Allergies Allergy/AdvReac Type Severity Reaction Status Date / Time No Known Allergies Allergy Verified 03/28/22 09:27 Review of Systems ROS Statement: Those systems with pertinent positive or pertinent negative responses have been documented in the HPI. ROS Other: All systems not noted in ROS Statement are negative. Constitutional: Denies: fever, chills Respiratory: Denies: cough, dyspnea Cardiovascular: Denies: chest pain, palpitations, edema Gastrointestinal: Reports: abdominal pain, nausea, vomiting. Denies: diarrhea, constipation, hematemesis, melena, hematochezia Genitourinary: Denies: dysuria, frequency, hematuria, testicular pain, testicular mass Musculoskeletal: Denies: back pain Skin: Denies: rash Neurological: Denies: headache, weakness, numbness Past Medical History Past Medical History: Atrial Fibrillation, Hypertension, Pneumonia Additional Past Medical History / Comment(s): 20 years ago - collapsed lung, chest tube History of Any Multi-Drug Resistant Organisms: CRE, Other MDRO Date of last positivie culture/infection: 01/25/21 MDRO Source:: URINE Past Surgical History: Ablation Additional Past Surgical History / Comment(s): C/T PLACEMENT Past Anesthesia/Blood Transfusion Reactions: No Reported Reaction Past Psychological History: No Psychological Hx Reported Smoking Status: Never smoker Past Alcohol Use History: Rare Past Drug Use History: Methamphetamine - Past Family History Father Family Medical History: Unable to Obtain Additional Family Medical History / Comment(s): . Mother Family Medical History: Deep Vein Thrombosis (DVT) General Exam Limitations: no limitations General appearance: alert, in no apparent distress Head exam: Present: atraumatic, normocephalic Eye exam: Present: normal appearance. Absent: scleral icterus, conjunctival injection Neck exam: Present: normal inspection, full ROM Respiratory exam: Present: normal lung sounds bilaterally. Absent: respiratory distress, wheezes, rales, rhonchi, stridor Cardiovascular Exam: Present: regular rate, normal rhythm, normal heart sounds. Absent: systolic murmur, diastolic murmur, rubs, gallop GI/Abdominal exam: Present: soft. Absent: distended, tenderness, guarding, rebound, rigid, mass Extremities exam: Present: normal inspection, normal capillary refill. Absent: pedal edema, calf tenderness Back exam: Present: normal inspection. Absent: CVA tenderness (R), CVA tenderness (L) Neurological exam: Present: alert Skin exam: Present: warm, dry, intact, normal color. Absent: rash Course Vital Signs 03/28/22 03/28/22 03/28/22 03:33 04:48 05:02 Temperature 98.5 F Pulse Rate 83 74 79 Respiratory 18 16 16 Rate Blood Pressure 178/88 167/102 167/102 O2 Sat by Pulse 97 98 99 Oximetry 03/28/22 03/28/22 03/28/22 08:00 15:29 18:28 Temperature Pulse Rate 83 105 H 101 H Respiratory 16 22 20 Rate Blood Pressure 160/91 155/95 169/95 O2 Sat by Pulse 98 99 96 Oximetry Medical Decision Making - Lab Data Result diagrams: 03/29/22 05:56 03/29/22 05:56 Lab Results 03/28/22 03/28/22 03/28/22 Range/Units 03:30 03:30 03:54 WBC 17.1 H (3.8-10.6) k/uL RBC 4.48 (4.30-5.90) m/uL Hgb 13.8 (13.0-17.5) gm/dL Hct 42.1 (39.0-53.0) % MCV 94.0 (80.0-100.0) fL MCH 30.7 (25.0-35.0) pg MCHC 32.7 (31.0-37.0) g/dL RDW 13.4 (11.5-15.5) % Plt Count 344 (150-450) k/uL MPV 8.2 Neutrophils % 91 % Lymphocytes % 4 % Monocytes % 4 % Eosinophils % 0 % Basophils % 0 % Neutrophils # 15.6 H (1.3-7.7) k/uL Lymphocytes # 0.7 L (1.0-4.8) k/uL Monocytes # 0.6 (0-1.0) k/uL Eosinophils # 0.0 (0-0.7) k/uL Basophils # 0.0 (0-0.2) k/uL Hypochromasia Slight Sodium 138 (137-145) mmol/L Potassium 4.7 (3.5-5.1) mmol/L Chloride 101 (98-107) mmol/L Carbon Dioxide 19 L (22-30) mmol/L Anion Gap 18 mmol/L BUN 37 H (9-20) mg/dL Creatinine 3.51 H (0.66-1.25) mg/dL Est GFR (CKD-EPI)AfAm 21 (>60 ml/min/1.73 sqM) Est GFR (CKD-EPI)NonAf 18 (>60 ml/min/1.73 sqM) Glucose 154 H (74-99) mg/dL Plasma Lactic Acid Troy 2.0 (0.7-2.0) mmol/L Calcium 9.6 (8.4-10.2) mg/dL Total Bilirubin 0.6 (0.2-1.3) mg/dL AST 20 (17-59) U/L ALT 16 (4-49) U/L Alkaline Phosphatase 122 (38-126) U/L Total Protein 7.8 (6.3-8.2) g/dL Albumin 4.8 (3.5-5.0) g/dL Amylase 84 (30-110) U/L Lipase 188 (23-300) U/L Urine Color Urine RBC (0-5) /hpf Urine WBC (0-5) /hpf Urine Bacteria (None) /hpf Urine Mucus (None) /hpf 03/28/22 Range/Units 04:47 WBC (3.8-10.6) k/uL RBC (4.30-5.90) m/uL Hgb (13.0-17.5) gm/dL Hct (39.0-53.0) % MCV (80.0-100.0) fL MCH (25.0-35.0) pg MCHC (31.0-37.0) g/dL RDW (11.5-15.5) % Plt Count (150-450) k/uL MPV Neutrophils % % Lymphocytes % % Monocytes % % Eosinophils % % Basophils % % Neutrophils # (1.3-7.7) k/uL Lymphocytes # (1.0-4.8) k/uL Monocytes # (0-1.0) k/uL Eosinophils # (0-0.7) k/uL Basophils # (0-0.2) k/uL Hypochromasia Sodium (137-145) mmol/L Potassium (3.5-5.1) mmol/L Chloride (98-107) mmol/L Carbon Dioxide (22-30) mmol/L Anion Gap mmol/L BUN (9-20) mg/dL Creatinine (0.66-1.25) mg/dL Est GFR (CKD-EPI)AfAm (>60 ml/min/1.73 sqM) Est GFR (CKD-EPI)NonAf (>60 ml/min/1.73 sqM) Glucose (74-99) mg/dL Plasma Lactic Acid Troy (0.7-2.0) mmol/L Calcium (8.4-10.2) mg/dL Total Bilirubin (0.2-1.3) mg/dL AST (17-59) U/L ALT (4-49) U/L Alkaline Phosphatase (38-126) U/L Total Protein (6.3-8.2) g/dL Albumin (3.5-5.0) g/dL Amylase (30-110) U/L Lipase (23-300) U/L Urine Color Red Urine RBC >182 H (0-5) /hpf Urine WBC >182 H (0-5) /hpf Urine Bacteria Moderate H (None) /hpf Urine Mucus Occasional H (None) /hpf Disposition Clinical Impression: Abdominal pain, MADDIE (acute kidney injury), Bladder rupture, Urinary retention, Leukocytosis Disposition: ADMITTED IP TO THIS HOSP Condition: Fair Is patient prescribed a controlled substance at d/c from ED?: No
[2022-03-28 04:30] LABS: Albumin 4.8 g/dL (3.5-5.0); Calcium 9.6 mg/dL (8.4-10.2); Potassium 4.7 mmol/L (3.5-5.1); Total Bilirubin 0.6 mg/dL (0.2-1.3); Total Protein 7.8 g/dL (6.3-8.2)
[2022-03-28] MEDS ORDERED: HYDROmorphone 1 MG/ML 1 ML SYRINGE IVP STA (04:53)
--- NOTE | 2022-03-28 04:57 | CT ---
EXAMINATION TYPE: CT abdomen pelvis wo con DATE OF EXAM: 03/28/2022 COMPARISON: 01/25/2021 HISTORY: MID ABDOMINAL PAIN. PRIOR ON PACS CT DLP: 462.5 mGycm Automated exposure control for dose reduction was used. Images obtained from the diaphragm to the floor of the pelvis with no contrast. Lung bases are clear of infiltrate. No pleural effusion. Heart size is normal. No pericardial effusio n. Liver spleen stomach appear intact. The bile ducts are not dilated. There is no pancreatic mass. G allbladder appears normal. There is no adrenal mass. There is bilateral hydronephrosis and hydroureter. There is dilated urinary bladder. Bladder measures 17 cm in length. There is some fluid around the superior aspect of the uri nary bladder. This fluid has low attenuation and could relate to a bladder leak. No retroperitoneal a denopathy. No inguinal hernia. No free fluid in the pelvis. No sign of a bowel obstruction. No mesent viky edema. The lumbar vertebrae have normal alignment. No compression fracture. Posterior elements are intact. T he bony pelvis is intact. The hip joints are intact. IMPRESSION: Dilated urinary bladder. Fluid around the dome of the urinary bladder which could be extraperitoneal bladder leak. This appears new compared to the old exam. Fluid measures up to 4 cm in thickness. Bila teral significant hydronephrosis and hydroureter probably related to chronic bladder outlet obstructi on and dilated bladder. Hydronephrosis slightly worse than the old exam.
[2022-03-28 05:40] LABS: Bacteria,Urine Moderate /hpf; Mucus,Urine Occasional /hpf; RBC,Urine >182 /hpf (0-5); WBC,Urine >182 /hpf (0-5)
[2022-03-28 05:44] LABS: Color,Urine Red
[2022-03-28] MEDS ORDERED: cefTRIAXone IN SWFI 1,000 MG/10 ML SYRINGE IVP STA (05:45)
[2022-03-28] MEDS ORDERED: ACETAMINOPHEN TAB 325 MG TAB PO PRN (06:32)
[2022-03-28] MEDS ORDERED: MORPHINE SULFATE 4 MG/ML SYRINGE IV PRN (06:32)
[2022-03-28] MEDS ORDERED: ONDANSETRON 4 MG/2 ML VIAL IVP PRN (06:32)
[2022-03-28] MEDS ORDERED: MAG HYDROX/AL HYDROX/SIMETH 30 ML CUP PO PRN (06:32)
[2022-03-28] MEDS ORDERED: NALOXONE 0.4 MG/ML 1 ML VIAL IV PRN (06:32)
[2022-03-28] MEDS: SODIUM CHLORIDE 0.9% 1,000 ML IV SCH ×2 (07:19→22:59)
[2022-03-28] MEDS ORDERED: HYDROmorphone 0.5 MG/0.5 ML SYRINGE IVP PRN (11:36)
[2022-03-28] MEDS ORDERED: hydrALAZINE HCL 20 MG/ML 1 ML VIAL IVP PRN (12:16)
[2022-03-28] MEDS ORDERED: LORazepam 2 MG/ML INJ IV PRN (12:16)
--- NOTE | 2022-03-28 13:32 | P.NPCON ---
History of Present Illness - Reason for Consult acute renal failure - History of Present Illness Patient is a 61-year-old male with previous history of hypertension, A. fib and history of acute kidney injury due to urine retention many years ago. Patient is admitted to the hospital with complaints of abdominal pain. He states that he has been voiding. CT of the abdomen shows bilateral hydronephrosis. Gallagher catheter has been placed in about 1200 mL of urine was obtained. Serum creatinine at 3.5 today. Previous creatinine was around 2.2-2.0 mg/dL in January. We have a creatinine of 1.28 on 04/23/2020 No history of use of NSAIDs Blood pressure here has not been low, in fact it is on the higher side. Past Medical History Past Medical History: Atrial Fibrillation, Hypertension, Pneumonia Additional Past Medical History / Comment(s): 20 years ago - collapsed lung, chest tube History of Any Multi-Drug Resistant Organisms: CRE, Other MDRO Date of last positivie culture/infection: 01/25/21 MDRO Source:: URINE Past Surgical History: Ablation Additional Past Surgical History / Comment(s): C/T PLACEMENT Past Anesthesia/Blood Transfusion Reactions: No Reported Reaction Past Psychological History: No Psychological Hx Reported Smoking Status: Never smoker Past Alcohol Use History: Rare Past Drug Use History: Methamphetamine - Past Family History Father Family Medical History: Unable to Obtain Additional Family Medical History / Comment(s): . Mother Family Medical History: Deep Vein Thrombosis (DVT) Medications and Allergies Home Medications Medication Instructions Recorded Confirmed Type Metoprolol Tartrate [Lopressor] 50 mg PO BID 03/28/22 03/28/22 History Allergies Allergy/AdvReac Type Severity Reaction Status Date / Time No Known Allergies Allergy Verified 03/28/22 09:27 Physical Exam Vitals: Vital Signs Temp Pulse Resp BP Pulse Ox 03/28/22 08:00 83 16 160/91 98 03/28/22 05:02 79 16 167/102 99 03/28/22 04:48 74 16 167/102 98 03/28/22 03:33 98.5 F 83 18 178/88 97 Intake and Output 03/27/22 03/28/22 03/28/22 22:59 06:59 14:59 Output Total 1200 2400 Balance -1200 -2400 Output: Urine 1200 2400 Other: Weight 77.111 kg Patient is awake, comfortable, complaining of abdominal pain No acute distress Alert oriented 3 Examination of the heart S1 and S2 Examination of the lungs bilateral breath sounds are heard Abdomen is soft nontender Examination of the lower extremities shows no evidence of edema [employer] exam grossly intact Gallagher catheter is in place Results - Lab Results Most recent lab results Calcium 9.6 mg/dL (8.4-10.2) 03/28/22 03:30 03/28/22 03:30 03/28/22 03:30 Assessment and Plan Assessment: 1. Acute kidney injury secondary to obstructive uropathy with bilateral hydronephrosis noted on CT of the abdomen currently with indwelling Gallagher catheter. Urology has been consulted. UA shows more than 182 WBCs and RBCs. 2. History of hypertension, blood pressure currently elevated most likely secondary to pain. Maintained on metoprolol and has been on amlodipine previously 3. Bilateral hydronephrosis most likely associated with bladder outlet obstruction with enlarged prostate. Urology on consult. Currently with indwelling Gallagher catheter 4. Pyuria rule out UTI, complaining of abdominal pain and vague urinary symptoms 5. Metabolic acidosis associated with acute kidney injury Plan: Continue with Gallagher catheter Continue IV fluids Check urine cultures Repeat labs in a.m.
--- NOTE | 2022-03-28 13:42 | HP ---
HISTORY AND PHYSICAL CHIEF COMPLAINT: Lower abdominal pain. HISTORY OF PRESENT ILLNESS: This 61-year-old gentleman with a past medical history of hypertension, atrial fibrillation, complaining of lower abdominal pain. 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 Creatinine was elevated. There is no history of any fever, rigors, or chills at this time. PAST MEDICAL HISTORY: Reviewed and includes atrial fibrillation. HOME MEDICATIONS: Also reviewed and include metoprolol. Doses are reviewed. ALLERGIES: None. FAMILY HISTORY: History of DVT. SOCIAL HISTORY: No history of smoking. Rare alcohol. History of methamphetamine abuse previously. REVIEW OF SYSTEMS: A 14-point review of systems is negative as mentioned earlier. PHYSICAL EXAMINATION: VITAL SIGNS: Pulse is 83, blood pressure 160/91, respirations 16. HEENT: Conjunctivae normal. NECK: No JVD. CARDIOVASCULAR: S1, S2, muffled. RESPIRATION: Breath sounds diminished at the bases. Few scattered rhonchi. No crackles. ABDOMEN: Soft. No guarding. No rigidity. Tenderness in the lower part of the abdomen. Bowel sounds diminished. LEGS: No edema. No swelling. NERVOUS SYSTEM: No focal deficits. SKIN: No ulcer, rash, bleeding. JOINTS: No active deforming arthropathy. LABORATORY DATA: WBC 17.1. The rest of the labs are noted. ASSESSMENT: 1. Possible acute urinary tract infection with bladder retention. 2. Acute renal failure. 3. Rule out bladder leak and rupture. 4. Atrial fibrillation. 5. Hypertension. 6. Multiple medical issues. RECOMMENDATIONS AND DISCUSSION: This 61-year-old gentleman, who presented with multiple complex medical issues. We will monitor the patient closely, continue the current medications and symptomatic treatment. We will initiate broad-spectrum IV antibiotics. I would also recommend Infectious Disease evaluation and Urology evaluation. Nephrology has seen the patient, will have symptomatic treatment of pain. DVT prophylaxis. Proton pump inhibitors. Prognosis guarded because of multiple complex medical issues. Further recommendations to follow. See orders for details. MMODL / IJN: [id number] /
--- NOTE | 2022-03-28 13:57 | P.GSCN ---
History of Present Illness Consult date: 03/28/22 Reason for Consult: Urinary retention, bilateral hydronephrosis, possible bladder rupture History of present illness: This is 61 -year-old male presents to the hospital with severe abdominal pain. He indicated his pain is associated with difficulty voiding and an episode of gross hematuria. He does have history of chronic retention, was seen in the hospital back in January 2021 for urinary retention, subsequently a Gallagher catheter was placed during that hospital admission, and he failed to follow-up as an outpatient. Does have chronic urinary symptoms, and is been having difficulty voiding associated with frequency and urinary incontinence. On presentation underwent a CT abdomen and pelvis that showed a significantly distended bladder, with bilateral hydronephrosis. There was also fluid around the bladder, concerning for a extraperitoneal bladder rupture. Initially his patient creatinine is elevated at 3.51 on presentation. Gallagher catheter was subsequently placed, with return of 1.2 L of urine Review of Systems - Constitutional Denies fever, Denies weight loss - Cardiovascular Denies chest pain, Denies shortness of breath - Respiratory Denies cough, Denies 7 - Gastrointestinal Reports abdominal pain, Denies nausea, Denies vomiting - Genitourinary Reports flank pain, Reports hematuria, Reports urinary retention - Integumentary Denies rash, Denies unusual bruising - Neurological Denies headaches, Denies syncope Past Medical History Past Medical History: Atrial Fibrillation, Hypertension, Pneumonia Additional Past Medical History / Comment(s): 20 years ago - collapsed lung, chest tube History of Any Multi-Drug Resistant Organisms: CRE, Other MDRO Year Discovered:: 01/25/21 MDRO Source:: URINE Past Surgical History: Ablation Additional Past Surgical History / Comment(s): C/T PLACEMENT Past Anesthesia/Blood Transfusion Reactions: No Reported Reaction Past Psychological History: No Psychological Hx Reported Smoking Status: Never smoker Past Alcohol Use History: Rare Past Drug Use History: Methamphetamine - Past Family History Father Family Medical History: Unable to Obtain Additional Family Medical History / Comment(s): . Mother Family Medical History: Deep Vein Thrombosis (DVT) Medications and Allergies Home Medications Medication Instructions Recorded Confirmed Type Metoprolol Tartrate [Lopressor] 50 mg PO BID 03/28/22 03/28/22 History Allergies Allergy/AdvReac Type Severity Reaction Status Date / Time No Known Allergies Allergy Verified 03/28/22 09:27 Surgical - Exam Vital Signs Temp Pulse Resp BP Pulse Ox 98.5 F 83 18 178/88 97 03/28/22 03:33 03/28/22 03:33 03/28/22 03:33 03/28/22 03:33 03/28/22 03:33 - General no distress, moderate pain - Eyes normal ocular movement, no pale - ENT normal nares, normal mucosa - Respiratory normal expansion, normal respiratory effort - Abdomen Abdomen: soft, tender (Diffusely in the abdomen and flank), no surgical scars - Psychiatric oriented to time, oriented to person, oriented to place Results - Labs 03/28/22 03:30 03/28/22 03:30 Abnormal Lab Results - Last 24 Hours (Table) 03/28/22 03/28/22 03/28/22 Range/Units 03:30 03:30 04:47 WBC 17.1 H (3.8-10.6) k/uL Neutrophils # 15.6 H (1.3-7.7) k/uL Lymphocytes # 0.7 L (1.0-4.8) k/uL Carbon Dioxide 19 L (22-30) mmol/L BUN 37 H (9-20) mg/dL Creatinine 3.51 H (0.66-1.25) mg/dL Glucose 154 H (74-99) mg/dL Urine RBC >182 H (0-5) /hpf Urine WBC >182 H (0-5) /hpf Urine Bacteria Moderate H (None) /hpf Urine Mucus Occasional H (None) /hpf Diabetes panel 03/28/22 Range/Units 03:30 Sodium 138 (137-145) mmol/L Potassium 4.7 (3.5-5.1) mmol/L Chloride 101 (98-107) mmol/L Carbon Dioxide 19 L (22-30) mmol/L BUN 37 H (9-20) mg/dL Creatinine 3.51 H (0.66-1.25) mg/dL Glucose 154 H (74-99) mg/dL Calcium 9.6 (8.4-10.2) mg/dL AST 20 (17-59) U/L ALT 16 (4-49) U/L Alkaline Phosphatase 122 (38-126) U/L Total Protein 7.8 (6.3-8.2) g/dL Albumin 4.8 (3.5-5.0) g/dL Calcium panel 03/28/22 Range/Units 03:30 Calcium 9.6 (8.4-10.2) mg/dL Albumin 4.8 (3.5-5.0) g/dL Pituitary panel 03/28/22 Range/Units 03:30 Sodium 138 (137-145) mmol/L Potassium 4.7 (3.5-5.1) mmol/L Chloride 101 (98-107) mmol/L Carbon Dioxide 19 L (22-30) mmol/L BUN 37 H (9-20) mg/dL Creatinine 3.51 H (0.66-1.25) mg/dL Glucose 154 H (74-99) mg/dL Calcium 9.6 (8.4-10.2) mg/dL Adrenal panel 03/28/22 Range/Units 03:30 Sodium 138 (137-145) mmol/L Potassium 4.7 (3.5-5.1) mmol/L Chloride 101 (98-107) mmol/L Carbon Dioxide 19 L (22-30) mmol/L BUN 37 H (9-20) mg/dL Creatinine 3.51 H (0.66-1.25) mg/dL Glucose 154 H (74-99) mg/dL Calcium 9.6 (8.4-10.2) mg/dL Total Bilirubin 0.6 (0.2-1.3) mg/dL AST 20 (17-59) U/L ALT 16 (4-49) U/L Alkaline Phosphatase 122 (38-126) U/L Total Protein 7.8 (6.3-8.2) g/dL Albumin 4.8 (3.5-5.0) g/dL - Imaging CT scan - abdomen: image reviewed (Significant distended bladder, with bilateral hydronephrosis, fluid around the bladder more consistent with an extraperitoneal bladder rupture, no free fluid within the peritoneal cavity) Assessment and Plan Assessment: 61-year-old male admitted to the hospital with urinary retention, acute kidney injury. CT on presentation showed significantly distended bladder with bilateral hydronephrosis and possible bladder rupture.. History of chronic retention, Gallagher placed on presentation with return of 1.2 L of urine -Keep Gallagher catheter in place -We'll obtain a CT cystogram, to better evaluate for bladder rupture -Continue Flomax -Continue IV antibiotics
--- NOTE | 2022-03-28 14:35 | CT ---
EXAMINATION TYPE: CT Cystogram DATE OF EXAM: 03/28/2022 COMPARISON: Prior CT without contrast earlier today and older CT 01/29/2021. HISTORY: Ruptured bladder CT DLP: 1334.0 mGycm, Automated Exposure Control for Dose Reduction was Utilized. CONTRAST: CT scan of the abdomen and pelvis is performed without oral and without and with IV Contrast, patient injected with 50 mL of Isovue 370 diluted in back of sterile saline failing through Gallagher. FINDINGS: LUNG BASES: Not included in field of view. LIVER/GB: Increased gallbladder distention without surrounding fat stranding. PANCREAS: Visualized portion of pancreatic head unremarkable. SPLEEN: Minimally imaged. ADRENALS: Not included in field of view. KIDNEYS: Persistent prominent thin-walled cyst medially at the lower pole left kidney measuring 4.0 x 3.3 cm. Improved left-sided hydronephrosis on current study is felt present with residual mild left- sided hydronephrosis. Some areas of hydroureter visualized. Persistent moderate to severe right-sided hydronephrosis and proximal to mid hydroureter similar to p rior CTs. Tortuous course to the right ureter with moderate hydroureter distally is seen. New Gallagher c atheter within urinary bladder which shows less prominent distention but incomplete emptying. Fairly moderate concentric wall thickening up to 14 mm anteriorly axial image 42 is now seen. Moderate ill-d efined fluid surrounding the bladder extending superiorly is redemonstrated. After contrast injection into bladder there is more prominent nondependent air. No carol ann extravasation of contrast identified on postinjection and delayed images performed in prone position. Moderate ill-defined fluid in the s tranding surrounding the right kidney is new from older CT was present on recent CT earlier today. Ho unsfield units measure between 3-4 on the noncontrast images axial image 35. BOWEL: Appendix is within normal limits for base of cecum. No suspicious small or large bowel dilatat ion. PROSTATE/SEMINAL VESICLES: Scattered calcifications in normal size prostate. Right-sided pelvic phleb oliths. LYMPH NODES: No greater than 1cm abdominal or pelvic lymph nodes are appreciated. OSSEOUS STRUCTURES: No significant abnormality is seen. OTHER: No significant additional abnormality is seen. IMPRESSION: There is new Nonspecific retroperitoneal fluid redemonstrated surrounding the right kidne y and urinary bladder. No contrast extravasation of bladder to definitively diagnose bladder wall rup ture or disruption. Improved distention of bladder after Gallagher catheter placement. Urinoma however re jemma in the differential. Other etiologies not excluded. Mild left-sided hydronephrosis is improved from CT study earlier today. Persistent [id number] right-sided hydronephrosis redemonstrated.
[2022-03-28] MEDS: HEPARIN SODIUM,PORCINE/PF 5,000 UNIT/0.5 ML SYRINGE SQ SCH ×2 (15:23→22:15)
[2022-03-28] MEDS: PANTOPRAZOLE 40 MG/10 ML VIAL IVP SCH (15:23)
[2022-03-28] MEDS: OXYBUTYNIN XL 5 MG TAB.ER.24 PO SCH (15:59)
[2022-03-28] MEDS: HYDROmorphone 1 MG/ML 1 ML SYRINGE IVP PRN ×3 (15:59→23:00)
[2022-03-28 19:46] LABS: INR 0.92 (0.90-1.11); Prothrombin Time 10.4 sec (9.9-11.9)
[2022-03-28] MEDS: TAMSULOSIN 0.4 MG CAP.ER.24H PO SCH (22:15)
[2022-03-29] MEDS: HYDROmorphone 1 MG/ML 1 ML SYRINGE IVP PRN ×5 (04:26→23:17)
--- NOTE | 2022-03-29 07:06 | P.CONS ---
History of Present Illness - Reason for Consult Consult date: 03/28/22 - History of Present Illness Patient is a 61-year-old male presenting to the ER around 4 in the morning for evaluation of right lower quadrant abdominal pain symptoms started 1 to 2 hours prior to presentation to the hospital however the patient was complaining of some pain mostly mild prior to that with worsening of his pain EMS was called and and the patient was brought into the hospital patient was describing the pain to be sharp almost 10 out of 10 in severity no significant radiation associated nausea but no vomiting. Denies having any diarrhea or constipation patient on presentation the hospital was afebrile he did have a mild tachycardia white count was 17.1 with a left shift did have elevated BUN and creatinine did have a significantly positive UA urine cultures obtained which are currently pending patient did have abdominal pelvis CT dilated urinary bladder fluid around the dome of the bladder which could be extraperitoneal bladder leak patient did have a Gallagher catheter placement and has been evaluated by urology repeat CT did shows persistent moderate to severe right-sided hydronephrosis positive mid hydroureter Gallagher catheter within the bladder less prominent distention moderate concentric wall thickening however there was no evidence of any contrast extravasation of the bladder definite diagnosis of bladder wall rupture or disruption patient was started on Rocephin admitted to [facility] infectious disease was consulted for further management of antibiotic therapy Past Medical History Past Medical History: Atrial Fibrillation, Hypertension, Pneumonia Additional Past Medical History / Comment(s): 20 years ago - collapsed lung, chest tube History of Any Multi-Drug Resistant Organisms: CRE, Other MDRO Year Discovered:: 01/25/21 MDRO Source:: URINE Past Surgical History: Ablation Additional Past Surgical History / Comment(s): C/T PLACEMENT Past Anesthesia/Blood Transfusion Reactions: No Reported Reaction Past Psychological History: No Psychological Hx Reported Smoking Status: Never smoker Past Alcohol Use History: Rare Past Drug Use History: Methamphetamine - Past Family History Father Family Medical History: Unable to Obtain Additional Family Medical History / Comment(s): . Mother Family Medical History: Deep Vein Thrombosis (DVT) Medications and Allergies Home Medications Medication Instructions Recorded Confirmed Type Metoprolol Tartrate [Lopressor] 50 mg PO BID 03/28/22 03/28/22 History Allergies Allergy/AdvReac Type Severity Reaction Status Date / Time No Known Allergies Allergy Verified 03/28/22 09:27 Physical Exam Vitals: Vital Signs Temp Pulse Resp BP Pulse Ox 03/28/22 15:29 105 H 22 155/95 99 03/28/22 08:00 83 16 160/91 98 03/28/22 05:02 79 16 167/102 99 03/28/22 04:48 74 16 167/102 98 03/28/22 03:33 98.5 F 83 18 178/88 97 Intake and Output 03/28/22 03/28/22 03/28/22 06:59 14:59 22:59 Output Total 1200 2400 Balance -1200 -2400 Output: Urine 1200 2400 Other: Weight 77.111 kg Results CBC & Chem 7: 03/28/22 03:30 03/28/22 03:30 Labs: Abnormal Lab Results - Last 24 Hours (Table) 03/28/22 03/28/22 03/28/22 Range/Units 03:30 03:30 04:47 WBC 17.1 H (3.8-10.6) k/uL Neutrophils # 15.6 H (1.3-7.7) k/uL Lymphocytes # 0.7 L (1.0-4.8) k/uL Carbon Dioxide 19 L (22-30) mmol/L BUN 37 H (9-20) mg/dL Creatinine 3.51 H (0.66-1.25) mg/dL Glucose 154 H (74-99) mg/dL Urine RBC >182 H (0-5) /hpf Urine WBC >182 H (0-5) /hpf Urine Bacteria Moderate H (None) /hpf Urine Mucus Occasional H (None) /hpf Assessment and Plan Plan: 1patient presented to hospital with significant lower abdominal pain this patient did have evidence of urinary retention significant amount of cystitis and right-sided hydronephrosis with initial concern for possible bladder rupture however no evidence of any extravasation of the contrast on repeat CT per radiologist, he did have a positive UA concerning for underlying remedicated infection likely from enteric gram-negative pathogen 2-increase the dose of Rocephin to 2 g daily while waiting for urine culture to be finalized 3-gentle IV fluid We will follow on clinical condition and cultures to further adjust medication if needed Thank you for this consultation will follow this patient along with you
[2022-03-29] MEDS: OXYBUTYNIN XL 5 MG TAB.ER.24 PO SCH (08:44)
[2022-03-29] MEDS: TAMSULOSIN 0.4 MG CAP.ER.24H PO SCH ×2 (08:44→20:02)
[2022-03-29] MEDS: METOPROLOL TARTRATE 50 MG TAB PO SCH ×2 (08:44→20:02)
[2022-03-29] MEDS: PANTOPRAZOLE 40 MG/10 ML VIAL IVP SCH (08:44)
[2022-03-29] MEDS: HEPARIN SODIUM,PORCINE/PF 5,000 UNIT/0.5 ML SYRINGE SQ SCH ×2 (08:45→20:02)
[2022-03-29 09:00] LABS: Basophils # (A) 0.04 X 10*3/uL (0.00-0.10); Basophils % (A) 0.2 %; Eosinophils # (A) 0.04 X 10*3/uL (0.04-0.35); Eosinophils % (A) 0.2 %; HCT 41.2 % (39.6-50.0); HGB 13.5 g/dL (13.0-17.0); Immature Grans, Automated 0.5 %; Lymphocytes # (A) 0.97 X 10*3/uL (0.90-5.00); Lymphocytes % (A) 5.1 %; MCH 30.2 pg (27.0-32.0); MCHC 32.8 g/dL (32.0-37.0); MCV 92.2 fL (80.0-97.0); Monocytes # (A) 1.42 X 10*3/uL (0.20-1.00); Monocytes % (A) 7.5 %; NRBC Per 100 WBC 0 /100 WBCS (0.0-0.0); Neutrophils # (A) 16.48 X 10*3/uL (1.80-7.70); Neutrophils % (A) 86.5 %; Platelet Count 336 X 10*3/uL (140-440); RBC 4.47 X 10*6/uL (4.40-5.60); WBC 19.05 X 10*3/uL (4.50-10.00)
[2022-03-29 09:07] LABS: African American GFR (CKD) 22.3 (60.0-200.0); Anion Gap 12.1 mmol/L (10.00-18.00); BUN/Creat Ratio 13.24 Ratio (12.00-20.00); Blood Urea Nitrogen 43.7 mg/dL (9.0-27.0); Calcium 8.8 mg/dL (8.7-10.3); Carbon Dioxide 19.9 mmol/L (20.0-27.5); Non-African American GFR(CKD) 19.2 (60.0-200.0)
[2022-03-29] MEDS: SODIUM CHLORIDE 0.9% 1,000 ML IV SCH ×2 (11:14→12:46)
--- NOTE | 2022-03-29 12:29 | P.PN ---
Subjective Progress Note Date: 03/29/22 No acute overnight event. CT cystogram showed no evidence of leak, but limited study given that bladder was not completely distended. Still having lower abdominal pain and spasm, but improved compared to yesterday. Objective - Vital Signs Vital signs: Vital Signs Temp 98.8 F 03/29/22 11:17 Pulse 60 03/29/22 11:17 Resp 14 03/29/22 11:17 BP 147/85 03/29/22 11:17 Pulse Ox 98 03/29/22 11:17 FiO2 Intake & Output 03/28/22 03/29/22 03/29/22 18:59 06:59 18:59 Output Total 2400 1200 800 Balance -2400 -1200 -800 Weight 77.111 kg Output: Urine 2400 1200 800 Other: Voiding Method Indwelling Catheter Indwelling Catheter - Constitutional General appearance: Present: no acute distress - Gastrointestinal General gastrointestinal: Present: soft, tenderness (lower abdomen ). Absent: distended, rigid - Labs CBC & Chem 7: 03/29/22 05:56 03/29/22 05:56 Labs: Abnormal Lab Results - Last 24 Hours (Table) 03/29/22 03/29/22 Range/Units 05:56 05:56 WBC 19.05 H (4.50-10.00) X 10*3/uL Immature Gran # 0.10 H (0.00-0.04) X 10*3/uL Neutrophils # 16.48 H (1.80-7.70) X 10*3/uL Monocytes # 1.42 H (0.20-1.00) X 10*3/uL Carbon Dioxide 19.9 L (20.0-27.5) mmol/L BUN 43.7 H (9.0-27.0) mg/dL Creatinine 3.3 H (0.6-1.5) mg/dL Est GFR (CKD-EPI)AfAm 22.3 L (60.0-200.0) Est GFR (CKD-EPI)NonAf 19.2 L (60.0-200.0) Glucose 139 H (70-110) mg/dL Microbiology - Last 24 Hours (Table) 03/28/22 00:00 Urine Culture - Preliminary Urine,Catheterized Assessment and Plan Assessment: 61-year-old male admitted to the hospital with urinary retention, acute kidney injury. CT on presentation showed significantly distended bladder with bilateral hydronephrosis and possible bladder rupture.. CT cystogram showed no evidence of leak and bladder was not completely distended thus small leak can be missed. -Keep Gallagher catheter in place -Continue Flomax -Continue IV antibiotics -Will repeat cystogram prior to discharge
--- NOTE | 2022-03-29 13:06 | P.PN ---
Subjective Patient is seen for follow-up for acute kidney injury mostly obstructive uropathy currently with indwelling Gallagher catheter. Serum creatinine improved to 3.3 from 3.5 yesterday Patient complains of significant abdominal discomfort and urge to void spite of the indwelling Gallagher catheter. He has had good urine output. Objective - Vital Signs Vital signs: Vital Signs Temp 98.8 F 03/29/22 11:17 Pulse 60 03/29/22 11:17 Resp 14 03/29/22 11:17 BP 147/85 03/29/22 11:17 Pulse Ox 98 03/29/22 11:17 FiO2 Intake & Output 03/28/22 03/29/22 03/29/22 18:59 06:59 18:59 Output Total 2400 1200 800 Balance -2400 -1200 -800 Weight 77.111 kg Output: Urine 2400 1200 800 Other: Voiding Method Indwelling Catheter Indwelling Catheter - Exam Awake, comfortable, not in any acute distress Examination of the heart S1 and S2 Examination of the lungs bilateral breath sounds are heard Abdomen is soft, mild tenderness lower abdomen Examination of the lower extremities shows no edema SAND MOLDER exam grossly intact - Labs CBC & Chem 7: 03/29/22 05:56 03/29/22 05:56 Labs: Abnormal Lab Results - Last 24 Hours (Table) 03/29/22 03/29/22 Range/Units 05:56 05:56 WBC 19.05 H (4.50-10.00) X 10*3/uL Immature Gran # 0.10 H (0.00-0.04) X 10*3/uL Neutrophils # 16.48 H (1.80-7.70) X 10*3/uL Monocytes # 1.42 H (0.20-1.00) X 10*3/uL Carbon Dioxide 19.9 L (20.0-27.5) mmol/L BUN 43.7 H (9.0-27.0) mg/dL Creatinine 3.3 H (0.6-1.5) mg/dL Est GFR (CKD-EPI)AfAm 22.3 L (60.0-200.0) Est GFR (CKD-EPI)NonAf 19.2 L (60.0-200.0) Glucose 139 H (70-110) mg/dL Microbiology - Last 24 Hours (Table) 03/28/22 00:00 Urine Culture - Preliminary Urine,Catheterized Assessment and Plan Assessment: 1. Acute kidney injury secondary to obstructive uropathy with bilateral hydronephrosis noted on CT of the abdomen currently with indwelling Gallagher catheter. Urology has been consulted. UA shows more than 182 WBCs and RBCs. 2. History of hypertension, blood pressure currently elevated most likely secondary to pain. Maintained on metoprolol and has been on amlodipine previously 3. Bilateral hydronephrosis most likely associated with bladder outlet obstruction with enlarged prostate. Urology on consult. Currently with indwelling Gallagher catheter 4. Pyuria rule out UTI, complaining of abdominal pain and vague urinary symptoms 5. Metabolic acidosis associated with acute kidney injury Plan: Continue with Gallagher catheter Continue IV fluids Check bladder scan to ensure no blockages in Gallagher catheter Repeat labs in a.m.
[2022-03-29] MEDS ORDERED: LORazepam 1 MG/0.5 ML VIAL IV PRN (23:31)
[2022-03-30] MEDS: HYDROmorphone 1 MG/ML 1 ML SYRINGE IVP PRN ×5 (03:12→22:16)
[2022-03-30] MEDS: HEPARIN SODIUM,PORCINE/PF 5,000 UNIT/0.5 ML SYRINGE SQ SCH ×2 (07:21→21:59)
[2022-03-30] MEDS: PANTOPRAZOLE 40 MG TABLET PO SCH (07:21)
[2022-03-30] MEDS: TAMSULOSIN 0.4 MG CAP.ER.24H PO SCH ×2 (07:21→22:00)
[2022-03-30] MEDS: METOPROLOL TARTRATE 50 MG TAB PO SCH ×2 (07:21→22:00)
[2022-03-30] MEDS: OXYBUTYNIN XL 5 MG TAB.ER.24 PO SCH (08:26)
[2022-03-30] MEDS: SODIUM CHLORIDE 0.9% 1,000 ML IV SCH (08:26)
[2022-03-30 08:56] LABS: Basophils # (A) 0.06 X 10*3/uL (0.00-0.10); Basophils % (A) 0.4 %; Eosinophils # (A) 0.13 X 10*3/uL (0.04-0.35); HCT 37.8 % (39.6-50.0); HGB 11.6 g/dL (13.0-17.0); Immature Grans, Automated 0.5 %; Lymphocytes # (A) 1.34 X 10*3/uL (0.90-5.00); Lymphocytes % (A) 9.9 %; MCH 29.4 pg (27.0-32.0); MCHC 30.7 g/dL (32.0-37.0); MCV 95.9 fL (80.0-97.0); Mean Platelet Volume 11.6 fL (9.5-12.2); Monocytes % (A) 9.6 %; NRBC Per 100 WBC 0 /100 WBCS (0.0-0.0); Neutrophils # (A) 10.66 X 10*3/uL (1.80-7.70); Neutrophils % (A) 78.6 %; Platelet Count 281 X 10*3/uL (140-440); RBC 3.94 X 10*6/uL (4.40-5.60); RDW 13.8 % (11.5-14.5); WBC 13.56 X 10*3/uL (4.50-10.00)
--- NOTE | 2022-03-30 09:00 | PN ---
PROGRESS NOTE DATE OF SERVICE: 03/29/2022 SUBJECTIVE: This 61-year-old gentleman, who was admitted with acute UTI with some bladder retention, had a CT scan, and Dr. Aceves as well as Dr. Epps is following the patient. CT cystogram showed no evidence of leak. Dr. Epps is planning a repeat cystogram prior to discharge. White count is still elevated at 19.05. Cultures are negative so far. OBJECTIVE: VITAL SIGNS: Pulse is 80, respirations 18. HEENT: Conjunctivae normal. NECK: No JVD. CARDIOVASCULAR: S1, S2 RESPIRATIONS: Breath sounds diminished at the bases. No rhonchi. ABDOMEN: Soft. Mild diffuse discomfort. No guarding. No rigidity. No mass palpable. LABORATORY DATA: Reviewed. ASSESSMENT: 1. Possible acute urinary tract infection with bladder retention. 2. Rule out bladder leak and rupture. 3. Acute renal failure. 4. Atrial fibrillation. 5. Hypertension. 6. Multiple medical issues. RECOMMENDATIONS: I recommend to continue current medications, continue symptomatic treatment. Continue with antibiotics. Repeat labs tomorrow. Closely follow with multiple consultants. Prognosis guarded because of the multiple medical issues. We will continue the symptomatic treatment. Further recommendations to follow. MMODL / IJN: [id number] / GENEVIEVE
[2022-03-30 09:09] LABS: African American GFR (CKD) 26.3 (60.0-200.0); Anion Gap 11.8 mmol/L (10.00-18.00); BUN/Creat Ratio 14.55 Ratio (12.00-20.00); Blood Urea Nitrogen 41.9 mg/dL (9.0-27.0); Calcium 8.8 mg/dL (8.7-10.3); Carbon Dioxide 19.6 mmol/L (20.0-27.5); Non-African American GFR(CKD) 22.7 (60.0-200.0); Potassium 4.4 mmol/L (3.5-5.5)
--- NOTE | 2022-03-30 11:15 | P.PN ---
Subjective Progress Note Date: 03/30/22 Follow up visit with the patient who is admitted to the hospital with urinary retention and acute kidney injury. CT on presentation showed significantly distended bladder with bilateral hydronephrosis and possible bladder rupture. CT cystogram showed no evidence of leak and bladder was not completely distended thus small leak can be missed. The patient continues to have significant lower abdominal pain and bladder spasms. Serum creatinine slowly improving to 2.9 from 3.3 yesterday. Objective - Vital Signs Vital signs: Vital Signs Temp 98.5 F 03/30/22 08:45 Pulse 66 03/30/22 08:45 Resp 14 03/30/22 08:45 BP 145/77 03/30/22 08:45 Pulse Ox 97 03/30/22 08:45 FiO2 Intake & Output 03/29/22 03/30/22 03/30/22 18:59 06:59 18:59 Intake Total 118 Output Total 1900 1900 Balance -1900 -1782 Intake: Oral 118 Output: Urine 1900 1900 Other: Voiding Method Indwelling Catheter Indwelling Catheter - Exam - Constitutional General appearance: Present: no acute distress - Gastrointestinal General gastrointestinal: Present: soft, tenderness (lower abdomen ) - Labs CBC & Chem 7: 03/30/22 04:30 03/30/22 04:30 Labs: Abnormal Lab Results - Last 24 Hours (Table) 03/30/22 03/30/22 Range/Units 04:30 04:30 WBC 13.56 H (4.50-10.00) X 10*3/uL RBC 3.94 L (4.40-5.60) X 10*6/uL Hgb 11.6 L (13.0-17.0) g/dL Hct 37.8 L (39.6-50.0) % MCHC 30.7 L (32.0-37.0) g/dL Immature Gran # 0.07 H (0.00-0.04) X 10*3/uL Neutrophils # 10.66 H (1.80-7.70) X 10*3/uL Monocytes # 1.30 H (0.20-1.00) X 10*3/uL Carbon Dioxide 19.6 L (20.0-27.5) mmol/L BUN 41.9 H (9.0-27.0) mg/dL Creatinine 2.9 H (0.6-1.5) mg/dL Est GFR (CKD-EPI)AfAm 26.3 L (60.0-200.0) Est GFR (CKD-EPI)NonAf 22.7 L (60.0-200.0) Glucose 123 H (70-110) mg/dL Microbiology - Last 24 Hours (Table) 03/28/22 00:00 Urine Culture - Preliminary Urine,Catheterized Assessment and Plan Plan: -Keep Gallagher catheter in place -Continue Flomax -Continue IV antibiotics -Continue Ditropan -Add B&O suppository for spasms -Will repeat cystogram prior to discharge - Appreciate Nephrology's recommendations Impression and plan of care have been directed as dictated by the signing physician. Latonya Sy nurse practitioner acting as scribe for signing physician. Latonya Sy [facility] Palliative Care/Urology [place]ink [id number] Email: [email or web address] I personally performed and participated in the history, physical, the decision making, I agree with the assessment and plan of [employer] Time with Patient: Less than 30
[2022-03-30] MEDS: BELLADONNA-OPIUM 16.2-60 MG 1 EACH SUPP RECTAL SCH ×3 (11:41→22:00)
--- NOTE | 2022-03-30 16:58 | P.PN ---
Subjective Patient is seen for follow-up for acute kidney injury mostly obstructive uropathy currently with indwelling Gallagher catheter. Serum creatinine improved to 2.9 from 3.5 on admission Patient complains of significant abdominal discomfort and urge to void spite of the indwelling Gallagher catheter. He has had good urine output. Objective - Vital Signs Vital signs: Vital Signs Temp 97.5 F L 03/30/22 11:08 Pulse 66 03/30/22 11:08 Resp 18 03/30/22 11:08 BP 128/78 03/30/22 11:08 Pulse Ox 98 03/30/22 11:08 FiO2 Intake & Output 03/29/22 03/30/22 03/30/22 18:59 06:59 18:59 Intake Total 118 Output Total [id number] 1300 Balance -1899 -1781 -1299 Intake: Oral 118 Output: Urine 1899 1899 1300 Other: Voiding Method Indwelling Catheter Indwelling Catheter Indwelling Catheter - Exam Awake, comfortable, not in any acute distress Examination of the heart S1 and S2 Examination of the lungs bilateral breath sounds are heard Abdomen is soft, mild tenderness lower abdomen Examination of the lower extremities shows no edema CYBER INSTRUCTOR exam grossly intact - Labs CBC & Chem 7: 03/30/22 04:30 03/30/22 04:30 Labs: Abnormal Lab Results - Last 24 Hours (Table) 03/30/22 03/30/22 Range/Units 04:30 04:30 WBC 13.56 H (4.50-10.00) X 10*3/uL RBC 3.94 L (4.40-5.60) X 10*6/uL Hgb 11.6 L (13.0-17.0) g/dL Hct 37.8 L (39.6-50.0) % MCHC 30.7 L (32.0-37.0) g/dL Immature Gran # 0.07 H (0.00-0.04) X 10*3/uL Neutrophils # 10.66 H (1.80-7.70) X 10*3/uL Monocytes # 1.30 H (0.20-1.00) X 10*3/uL Carbon Dioxide 19.6 L (20.0-27.5) mmol/L BUN 41.9 H (9.0-27.0) mg/dL Creatinine 2.9 H (0.6-1.5) mg/dL Est GFR (CKD-EPI)AfAm 26.3 L (60.0-200.0) Est GFR (CKD-EPI)NonAf 22.7 L (60.0-200.0) Glucose 123 H (70-110) mg/dL Microbiology - Last 24 Hours (Table) 03/28/22 00:00 Urine Culture - Final Urine,Catheterized Assessment and Plan Assessment: 1. Acute kidney injury secondary to obstructive uropathy with bilateral hydronephrosis noted on CT of the abdomen currently with indwelling Gallagher catheter. Urology has been consulted. UA shows more than 182 WBCs and RBCs. 2. History of hypertension, blood pressure currently elevated most likely secondary to pain. Maintained on metoprolol and has been on amlodipine previously 3. Bilateral hydronephrosis most likely associated with bladder outlet obstruction with enlarged prostate. Urology on consult. Currently with indwelling Gallagher catheter 4. Pyuria rule out UTI, complaining of abdominal pain and vague urinary symptoms. Urine culture did not show any significant growth. 5. Metabolic acidosis associated with acute kidney injury Plan: Change IV fluids to Ringer lactate due to mild metabolic acidosis Add oral sodium bicarb tomorrow if patient remains acidotic Continue with Gallagher catheter.
[2022-03-30] MEDS: LACTATED RINGERS 1,000 ML IV SCH (17:08)
[2022-03-31] MEDS: HYDROmorphone 1 MG/ML 1 ML SYRINGE IVP PRN ×5 (04:47→20:25)
[2022-03-31] MEDS: LACTATED RINGERS 1,000 ML IV SCH (04:54)
--- NOTE | 2022-03-31 07:19 | P.PN ---
Subjective Progress Note Date: 03/29/22 Principal diagnosis: Complicated UTI Patient is a 61-year-old male presented to hospital with urinary retention and no abdominal pain CT with evidence of bilateral hydronephrosis possible bladder rupture however CT histogram did not show any evidence of any leak. On today's evaluation and that is 03/29/2022, patient denies having any fever or any chills, still complaining of lower abdominal pain mostly spasm and did have a blood in his urine with Gallagher intact denies any chest pain shortness of breath or cough no diarrhea Objective - Vital Signs Vital signs: Vital Signs Temp 98.8 F 03/29/22 11:17 Pulse 60 03/29/22 11:17 Resp 14 03/29/22 11:17 BP 147/85 03/29/22 11:17 Pulse Ox 98 03/29/22 11:17 FiO2 Intake & Output 03/28/22 03/29/22 03/29/22 18:59 06:59 18:59 Output Total 2400 1200 800 Balance -2400 -1200 -800 Weight 77.111 kg Output: Urine 2400 1200 800 Other: Voiding Method Indwelling Catheter Indwelling Catheter - Exam GENERAL DESCRIPTION: Middle-age male lying in bed in no distress RESPIRATORY SYSTEM: Unlabored breathing , decreased breath sounds at bases HEART: S1 S2 regular rate and rhythm , ABDOMEN: Soft , no tenderness : Gallagher catheter with blood stained urine EXTREMITIES: No edema feet - Labs CBC & Chem 7: 03/30/22 04:30 03/30/22 04:30 Labs: Abnormal Lab Results - Last 24 Hours (Table) 03/29/22 03/29/22 Range/Units 05:56 05:56 WBC 19.05 H (4.50-10.00) X 10*3/uL Immature Gran # 0.10 H (0.00-0.04) X 10*3/uL Neutrophils # 16.48 H (1.80-7.70) X 10*3/uL Monocytes # 1.42 H (0.20-1.00) X 10*3/uL Carbon Dioxide 19.9 L (20.0-27.5) mmol/L BUN 43.7 H (9.0-27.0) mg/dL Creatinine 3.3 H (0.6-1.5) mg/dL Est GFR (CKD-EPI)AfAm 22.3 L (60.0-200.0) Est GFR (CKD-EPI)NonAf 19.2 L (60.0-200.0) Glucose 139 H (70-110) mg/dL Microbiology - Last 24 Hours (Table) 03/28/22 00:00 Urine Culture - Preliminary Urine,Catheterized Assessment and Plan (1) UTI (urinary tract infection) Current Visit: No Status: Acute Code(s): N39.0 - URINARY TRACT INFECTION, SITE NOT SPECIFIED SNOMED Code(s): 05111265 Plan: 1patient presented to hospital with significant lower abdominal pain this patient did have evidence of urinary retention significant amount of cystitis and right-sided hydronephrosis with initial concern for possible bladder rupture however no evidence of any extravasation of the contrast on repeat CT per radiologist, he did have a positive UA concerning for underlying urinary tract infection likely from enteric gram-negative pathogen 2Patient to continue with Rocephin to 2 g daily while waiting for urine culture to be finalized Time with Patient: Less than 30
--- NOTE | 2022-03-31 07:20 | P.PN ---
Subjective Progress Note Date: 03/30/22 Principal diagnosis: Complicated UTI Patient is a 61-year-old male presented to hospital with urinary retention and no abdominal pain CT with evidence of bilateral hydronephrosis possible bladder rupture however CT histogram did not show any evidence of any leak. On today's evaluation and that is 03/30/2022, patient remains to be afebrile, the patient is complaining of lower abdominal pain mostly spasm however no worsening and did have a blood in his urine with Gallagher intact, the patient denies any chest pain shortness of breath or cough no diarrhea Objective - Vital Signs Vital signs: Vital Signs Temp 97.5 F L 03/30/22 11:08 Pulse 66 03/30/22 11:08 Resp 18 03/30/22 11:08 BP 128/78 03/30/22 11:08 Pulse Ox 98 03/30/22 11:08 FiO2 Intake & Output 03/29/22 03/30/22 03/30/22 18:59 06:59 18:59 Intake Total 118 Output Total 1900 1900 1300 Balance -0 -1300 Intake: Oral 118 Output: Urine 1900 1900 1300 Other: Voiding Method Indwelling Catheter Indwelling Catheter Indwelling Catheter - Exam GENERAL DESCRIPTION: Middle-age male lying in bed in no distress RESPIRATORY SYSTEM: Unlabored breathing , decreased breath sounds at bases HEART: S1 S2 regular rate and rhythm , ABDOMEN: Soft , no tenderness : Gallagher catheter with blood stained urine EXTREMITIES: No edema feet - Labs CBC & Chem 7: 03/30/22 04:30 03/30/22 04:30 Labs: Abnormal Lab Results - Last 24 Hours (Table) 03/30/22 03/30/22 Range/Units 04:30 04:30 WBC 13.56 H (4.50-10.00) X 10*3/uL RBC 3.94 L (4.40-5.60) X 10*6/uL Hgb 11.6 L (13.0-17.0) g/dL Hct 37.8 L (39.6-50.0) % MCHC 30.7 L (32.0-37.0) g/dL Immature Gran # 0.07 H (0.00-0.04) X 10*3/uL Neutrophils # 10.66 H (1.80-7.70) X 10*3/uL Monocytes # 1.30 H (0.20-1.00) X 10*3/uL Carbon Dioxide 19.6 L (20.0-27.5) mmol/L BUN 41.9 H (9.0-27.0) mg/dL Creatinine 2.9 H (0.6-1.5) mg/dL Est GFR (CKD-EPI)AfAm 26.3 L (60.0-200.0) Est GFR (CKD-EPI)NonAf 22.7 L (60.0-200.0) Glucose 123 H (70-110) mg/dL Microbiology - Last 24 Hours (Table) 03/28/22 00:00 Urine Culture - Final Urine,Catheterized Assessment and Plan (1) UTI (urinary tract infection) Current Visit: No Status: Acute Code(s): N39.0 - URINARY TRACT INFECTION, SITE NOT SPECIFIED SNOMED Code(s): 17429383 Plan: 1patient presented to hospital with significant lower abdominal pain this patient did have evidence of urinary retention significant amount of cystitis and right-sided hydronephrosis with initial concern for possible bladder rupture however no evidence of any extravasation of the contrast on repeat CT per radiologist, he did have a positive UA concerning for underlying urinary tract infection likely from enteric gram-negative pathogen 2Patient seemed to have some clinical improvement and will continue with Rocephin to 2 g daily while waiting for urine culture to be finalized Time with Patient: Less than 30
[2022-03-31] MEDS: BELLADONNA-OPIUM 16.2-60 MG 1 EACH SUPP RECTAL SCH ×4 (08:10→19:59)
[2022-03-31] MEDS: PANTOPRAZOLE 40 MG TABLET PO SCH (08:10)
[2022-03-31] MEDS: METOPROLOL TARTRATE 50 MG TAB PO SCH ×2 (08:12→20:25)
[2022-03-31] MEDS: OXYBUTYNIN XL 5 MG TAB.ER.24 PO SCH (08:12)
[2022-03-31] MEDS: HEPARIN SODIUM,PORCINE/PF 5,000 UNIT/0.5 ML SYRINGE SQ SCH ×2 (08:12→20:25)
[2022-03-31] MEDS: TAMSULOSIN 0.4 MG CAP.ER.24H PO SCH ×4 (08:12→20:43)
[2022-03-31 10:18] LABS: Basophils # (A) 0.1 k/uL (0-0.2); Basophils % (A) 1 %; Eosinophils # (A) 0.4 k/uL (0-0.7); Eosinophils % (A) 4 %; HGB 12.2 gm/dL (13.0-17.5); Hypochromasia Slight; Lymphocytes # (A) 1.2 k/uL (1.0-4.8); Lymphocytes % (A) 13 %; MCH 30.5 pg (25.0-35.0); MCHC 32.2 g/dL (31.0-37.0); MCV 94.6 fL (80.0-100.0); Mean Platelet Volume 8.6; Monocytes # (A) 0.6 k/uL (0-1.0); Monocytes % (A) 6 %; Neutrophils # (A) 7.3 k/uL (1.3-7.7); Neutrophils % (A) 75 %; Platelet Count 272 k/uL (150-450); RBC 4.02 m/uL (4.30-5.90); RDW 13.2 % (11.5-15.5); WBC 9.7 k/uL (3.8-10.6)
[2022-03-31 10:29] LABS: African American GFR (CKD) 30 (>60 ml/min/1.73 sqM); Anion Gap 12 mmol/L; Blood Urea Nitrogen 35 mg/dL (9-20); Calcium 8.7 mg/dL (8.4-10.2); Carbon Dioxide 22 mmol/L (22-30); Chloride 102 mmol/L (98-107); Glucose 117 mg/dL (74-99); Non-African American GFR(CKD) 26 (>60 ml/min/1.73 sqM); Sodium 136 mmol/L (137-145)
--- NOTE | 2022-03-31 14:08 | P.PN ---
Subjective Progress Note Date: 03/31/22 Follow up visit with the patient who is admitted to the hospital with urinary retention and acute kidney injury. CT on presentation showed significantly distended bladder with bilateral hydronephrosis and possible bladder rupture. CT cystogram showed no evidence of leak and bladder was not completely distended thus small leak can be missed. The patient continues to have significant lower abdominal pain and bladder spasms. He states he is not able to sleep because of the frequent spasms. Serum creatinine continue to improve and is 2.57 today. Patient denies any nausea, vomiting, or shortness of breath. Objective - Vital Signs Vital signs: Vital Signs Temp 97.5 F L 03/31/22 13:13 Pulse 60 03/31/22 13:13 Resp 15 03/31/22 13:13 BP 123/76 03/31/22 13:13 Pulse Ox 100 03/31/22 13:13 FiO2 Intake & Output 03/30/22 03/31/22 03/31/22 18:59 06:59 18:59 Intake Total 360 590 Output Total 1300 2100 1000 Balance -940 -1510 -1000 Intake: Oral 360 590 Output: Urine 1300 2100 1000 Other: Voiding Method Indwelling Catheter Indwelling Catheter # Voids 4 # Bowel Movements 1 - Exam General: Well developed, well nourished. No acute distress. HEENT: Head is atraumatic, normocephalic. Lungs: Respirations even and nonlabored. Abdomen/GI: Soft. Moderate lower abdominal tenderness. : Gallagher catheter with pink/yellow urine Vascular: No peripheral edema Neurologic: Awake, alert and oriented times 3. CN II-XII grossly intact. No focal deficits. Psychiatric: Appropriate mood and affect. - Labs CBC & Chem 7: 03/31/22 09:48 03/31/22 09:48 Labs: Abnormal Lab Results - Last 24 Hours (Table) 03/31/22 03/31/22 Range/Units 09:48 09:48 RBC 4.02 L (4.30-5.90) m/uL Hgb 12.2 L (13.0-17.5) gm/dL Hct 38.0 L (39.0-53.0) % Sodium 136 L (137-145) mmol/L BUN 35 H (9-20) mg/dL Creatinine 2.57 H (0.66-1.25) mg/dL Glucose 117 H (74-99) mg/dL Microbiology - Last 24 Hours (Table) 03/28/22 00:00 Urine Culture - Final Urine,Catheterized Assessment and Plan Plan: -Keep Gallagher catheter in place for two weeks -Continue Flomax -Continue IV antibiotics -Continue Ditropan - ContinueB&O suppository for spasms - Add Valium for bladder spasms -Will repeat cystogram prior to discharge - Appreciate Nephrology's recommendations Impression and plan of care have been directed as dictated by the signing physician. Latonya Sy nurse practitioner acting as scribe for signing physician. Latonya Sy [facility] Palliative Care/Urology Spectralink [phone] Email: [email or web address] I personally performed and participated in history, physical exam and decision making. I agree with the assessment and plan of the INSTRUCTOR PILOT Time with Patient: Less than 30
--- NOTE | 2022-03-31 14:25 | P.PN ---
Subjective Patient is seen for follow-up for acute kidney injury mostly obstructive uropathy currently with indwelling Gallagher catheter. Serum creatinine improved to 2.5 from 3.5 on admission Patient complains of significant abdominal discomfort and urge to void spite of the indwelling Gallagher catheter. He has had good urine output. Objective - Vital Signs Vital signs: Vital Signs Temp 97.5 F L 03/31/22 13:13 Pulse 60 03/31/22 13:13 Resp 15 03/31/22 13:13 BP 123/76 03/31/22 13:13 Pulse Ox 100 03/31/22 13:13 FiO2 Intake & Output 03/30/22 03/31/22 03/31/22 18:59 06:59 18:59 Intake Total 360 590 Output Total 1300 2100 1000 Balance -940 -1510 -1000 Intake: Oral 360 590 Output: Urine 1300 2100 1000 Other: Voiding Method Indwelling Catheter Indwelling Catheter # Voids 4 # Bowel Movements 1 - Exam Awake, comfortable, not in any acute distress Examination of the heart S1 and S2 Examination of the lungs bilateral breath sounds are heard Abdomen is soft, mild tenderness lower abdomen Examination of the lower extremities shows no edema PROBATION MANAGER exam grossly intact - Labs CBC & Chem 7: 03/31/22 09:48 03/31/22 09:48 Labs: Abnormal Lab Results - Last 24 Hours (Table) 03/31/22 03/31/22 Range/Units 09:48 09:48 RBC 4.02 L (4.30-5.90) m/uL Hgb 12.2 L (13.0-17.5) gm/dL Hct 38.0 L (39.0-53.0) % Sodium 136 L (137-145) mmol/L BUN 35 H (9-20) mg/dL Creatinine 2.57 H (0.66-1.25) mg/dL Glucose 117 H (74-99) mg/dL Microbiology - Last 24 Hours (Table) 03/28/22 00:00 Urine Culture - Final Urine,Catheterized Assessment and Plan Assessment: 1. Acute kidney injury secondary to obstructive uropathy with bilateral hydronephrosis noted on CT of the abdomen currently with indwelling Gallagher catheter. Urology has been consulted. UA shows more than 182 WBCs and RBCs. Possible bladder rupture/leak 2. History of hypertension, blood pressure currently elevated most likely secondary to pain. Maintained on metoprolol and has been on amlodipine previously 3. Bilateral hydronephrosis most likely associated with bladder outlet obstruction with enlarged prostate. Urology on consult. Currently with indwelling Gallagher catheter 4. Pyuria rule out UTI, complaining of abdominal pain and vague urinary symptoms. Urine culture did not show any significant growth. 5. Metabolic acidosis associated with acute kidney injury Plan: Continue Ringer lactate Add oral sodium bicarb tomorrow if patient remains acidotic Continue with Gallagher catheter. Possible repeat cystoscopy for urology.
--- NOTE | 2022-03-31 14:27 | PN ---
PROGRESS NOTE DATE OF SERVICE: 03/30/2022 DATE OF SERVICE: 03/30/2022 SUBJECTIVE: This is a 61-year-old gentleman who was admitted with acute urinary retention, is being closely monitored. White count is improving. Cultures negative so far. No chest pain, no palpitation. The patient has hematuria. PHYSICAL EXAMINATION: VITAL SIGNS: Pulse is 66, blood pressure 140/77, AND respirations 14. CHEST: Clear to auscultation. ABDOMEN: Soft, nontender. NERVOUS SYSTEM: No focal deficits. LABS: Reviewed, creatinine is 2.9, rest of the labs are reviewed. ASSESSMENT: 1. Possible acute urinary tract infection with bladder retention. 2. Acute kidney injury. 3. Rule out bladder leak and rupture. 4. Atrial fibrillation. 5. Hypertension. 6. Multiple medical issues. RECOMMENDATIONS: Recommended to continue current management. Continue the antibiotics. Follow the cultures. Closely follow with Urology, Infectious Disease. Prognosis guarded. Further recommendations to follow. MMODL / IJN: [id number] /
[2022-03-31] MEDS: HYDROcodone/APAP 5-325MG 1 EACH TAB PO PRN (15:37)
--- NOTE | 2022-03-31 16:05 | FL ---
INDICATION: Patient age:Male; 61 years old; Reason for study: bladder rupture; [facility]. COMPARISON: CT cystogram 03/28/2022. TECHNIQUE: The study was explained to the patient and history was elicited. Prior to initiation of t he study a weighmaster radiograph of the abdomen and pelvis was obtained. A Gallagher catheter was already in p lace when patient arrived in the department of radiology. Approximately 300 mL Cystografin was instil led via the urinary catheter under intermittent spot fluoroscopy. Fluoroscopy time 14 seconds Fluoroscopy images: 10 Radiographs images: 2 FINDINGS: The weighmaster fluoroscopic image of the pelvis demonstrated no radiographic acute intrapelvic or intra-ab dominal pathology. Stool is present throughout the large bowel. Multiple pelvic phleboliths and prost ate calcifications identified. After the urinary bladder was completely distended, oblique, lateral and frontal radiographs were obt ained. The bladder wall demonstrates a smooth contour without evidence of focal abnormal outpouching , extrinsic impression or contrast extravasation. There was right vesico-ureteral reflux demonstrated . Trace post void residual contrast visualized. There is no evidence of extravasation of contrast ou tside the bladder lumen visualized on the post void fluoroscopic images. IMPRESSION: 1. No extravasation of contrast from the urinary bladder to suggest rupture. 2. Right vesico-ureteral reflux demonstrated
[2022-03-31] MEDS: diazePAM 5 MG TAB PO PRN (20:25)
[2022-04-01] MEDS: HYDROmorphone 1 MG/ML 1 ML SYRINGE IVP PRN ×2 (01:02→08:23)
[2022-04-01] MEDS: LACTATED RINGERS 1,000 ML IV SCH ×2 (01:05→10:06)
[2022-04-01] MEDS: HYDROcodone/APAP 5-325MG 1 EACH TAB PO PRN (04:25)
[2022-04-01] MEDS: diazePAM 5 MG TAB PO PRN (04:25)
[2022-04-01 08:00] LABS: Amorphous Sediment,Urine Rare /hpf; Appearance,Urine Cloudy (Clear); Bilirubin,Urine Negative (Negative); Blood,Urine Large (Negative); Color,Urine Yellow; Glucose,Urine (UA) Negative (Negative); Ketones,Urine Negative (Negative); Leukocyte Esterase,Urine Large (Negative); Nitrite,Urine Negative (Negative); Protein,Urine 2+ (Negative); RBC,Urine >182 /hpf (0-5); Specific Gravity,Urine 1.012 (1.001-1.035); Urobilinogen,Urine <2.0 mg/dL (<2.0); WBC,Urine >182 /hpf (0-5)
[2022-04-01] MEDS: BELLADONNA-OPIUM 16.2-60 MG 1 EACH SUPP RECTAL SCH (08:15)
[2022-04-01] MEDS: HEPARIN SODIUM,PORCINE/PF 5,000 UNIT/0.5 ML SYRINGE SQ SCH (08:16)
[2022-04-01] MEDS: PANTOPRAZOLE 40 MG TABLET PO SCH (08:16)
[2022-04-01] MEDS: TAMSULOSIN 0.4 MG CAP.ER.24H PO SCH (08:16)
[2022-04-01] MEDS: METOPROLOL TARTRATE 50 MG TAB PO SCH (08:16)
[2022-04-01] MEDS: OXYBUTYNIN XL 5 MG TAB.ER.24 PO SCH (08:22)
[2022-04-01 08:36] VITALS: BP 130/77; PULSE 59; RESP 14; TEMP 97.6
[2022-04-01 10:46] LABS: Basophils # (A) 0.08 X 10*3/uL (0.00-0.10); Basophils % (A) 0.8 %; Eosinophils # (A) 0.47 X 10*3/uL (0.04-0.35); Eosinophils % (A) 4.7 %; HCT 33.5 % (39.6-50.0); HGB 10.9 g/dL (13.0-17.0); Immature Grans, Automated 0.3 %; Lymphocytes # (A) 1.35 X 10*3/uL (0.90-5.00); Lymphocytes % (A) 13.4 %; MCH 30.2 pg (27.0-32.0); MCHC 32.5 g/dL (32.0-37.0); MCV 92.8 fL (80.0-97.0); Mean Platelet Volume 11.6 fL (9.5-12.2); Monocytes # (A) 0.87 X 10*3/uL (0.20-1.00); Monocytes % (A) 8.6 %; NRBC Per 100 WBC 0 /100 WBCS (0.0-0.0); Neutrophils % (A) 72.2 %; Platelet Count 287 X 10*3/uL (140-440); RBC 3.61 X 10*6/uL (4.40-5.60); RDW 13.3 % (11.5-14.5)
[2022-04-01 11:04] LABS: African American GFR (CKD) 28.4 (60.0-200.0); Anion Gap 11.1 mmol/L (10.00-18.00); BUN/Creat Ratio 13.63 Ratio (12.00-20.00); Blood Urea Nitrogen 36.8 mg/dL (9.0-27.0); Calcium 8.8 mg/dL (8.7-10.3); Carbon Dioxide 20.9 mmol/L (20.0-27.5); Non-African American GFR(CKD) 24.5 (60.0-200.0); Potassium 4.4 mmol/L (3.5-5.5)
--- NOTE | 2022-04-01 12:06 | P.PN ---
Subjective Progress Note Date: 04/01/22 Principal diagnosis: Urinary retention Follow up visit with the patient who is admitted to the hospital with urinary retention and acute kidney injury. CT on presentation showed significantly distended bladder with bilateral hydronephrosis and possible bladder rupture. CT cystogram showed no evidence of leak and bladder was not completely distended thus small leak can be missed. The patient continues to have significant lower abdominal pain and bladder spasms. He states spasms are better. Serum creatinine continues to improve. Repeat cystogram shows no evidence of extravas ation fom the bladder to suggest bladder rupture. Patient denies any nausea, vomiting, or shortness of breath. He is afebrile. Objective - Vital Signs Vital signs: Vital Signs Temp 97.6 F 04/01/22 07:15 Pulse 59 L 04/01/22 07:15 Resp 14 04/01/22 07:15 BP 130/77 04/01/22 07:15 Pulse Ox 97 04/01/22 07:15 FiO2 Intake & Output 03/31/22 04/01/22 04/01/22 18:59 06:59 18:59 Intake Total 240 Output Total 2350 2200 1150 Balance -2110 -2200 -1150 Intake: Oral 240 Output: Urine 2350 2200 1150 Uretheral (Gallagher) 300 Other: Voiding Method Indwelling Catheter Indwelling Catheter Indwelling Catheter # Voids 4 - Exam General: Well developed, well nourished. No acute distress. HEENT: Head is atraumatic, normocephalic. Lungs: Respirations even and nonlabored. Abdomen/GI: Soft. Moderate lower abdominal tenderness. Vascular: No peripheral edema Neurologic: Awake, alert and oriented times 3. CN II-XII grossly intact. No focal deficits. Psychiatric: Appropriate mood and affect. - Labs CBC & Chem 7: 04/01/22 06:43 04/01/22 06:43 Labs: Abnormal Lab Results - Last 24 Hours (Table) 04/01/22 04/01/22 04/01/22 Range/Units 06:43 06:43 07:00 WBC 10.10 H (4.50-10.00) X 10*3/uL RBC 3.61 L (4.40-5.60) X 10*6/uL Hgb 10.9 L (13.0-17.0) g/dL Hct 33.5 L (39.6-50.0) % Eosinophils # 0.47 H (0.04-0.35) X 10*3/uL Sodium 134 L (135-145) mmol/L BUN 36.8 H (9.0-27.0) mg/dL Creatinine 2.7 H (0.6-1.5) mg/dL Est GFR (CKD-EPI)AfAm 28.4 L (60.0-200.0) Est GFR (CKD-EPI)NonAf 24.5 L (60.0-200.0) Urine Protein 2+ H (Negative) Urine Blood Large H (Negative) Ur Leukocyte Esterase Large H (Negative) Urine RBC >182 H (0-5) /hpf Urine WBC >182 H (0-5) /hpf Amorphous Sediment Rare H (None) /hpf Assessment and Plan Assessment: Gallagher catheter removed. Nursing staff to teach patient to intermittent catheterize himself with a 14 Fr. catheter 4 times a day, for urinary retention, until seen for follow up appointment in [address] Epps. Prescription written for home supplies. Plan: Impression and plan of care have been directed as dictated by the signing physician. Latonya Sy nurse practitioner acting as scribe for signing physician. Latonya Sy [facility] Palliative Care/Urology Spectralink [phone] Email: [email or web address] I personally performed and participated in the history, physical, the decision making, I agree with the assessment and plan of FLORICULTURE TEACHER Time with Patient: Greater than 30
--- NOTE | 2022-04-01 12:19 | P.PN ---
Subjective Patient is seen for follow-up for acute kidney injury mostly obstructive uropathy currently with indwelling Gallagher catheter. Serum creatinine improved to 2.5 from 3.5 on admission Patient complains of significant abdominal discomfort and urge to void spite of the indwelling Gallagher catheter. He has had good urine output. Indwelling Gallagher catheter was discontinued this morning and patient's pain has significantly improved. He will be going home with straight catheterization to be done 3-4 times per day. Objective - Vital Signs Vital signs: Vital Signs Temp 97.6 F 04/01/22 07:15 Pulse 59 L 04/01/22 07:15 Resp 14 04/01/22 07:15 BP 130/77 04/01/22 07:15 Pulse Ox 97 04/01/22 07:15 FiO2 Intake & Output 03/31/22 04/01/22 04/01/22 18:59 06:59 18:59 Intake Total 240 Output Total 2350 2200 1150 Balance -2110 -2200 -1150 Intake: Oral 240 Output: Urine 2350 2200 1150 Uretheral (Gallagher) 300 Other: Voiding Method Indwelling Catheter Indwelling Catheter Indwelling Catheter # Voids 4 - Exam Awake alert oriented 3 Euvolemic INBOUND SALES REPRESENTATIVE exam grossly intact - Labs CBC & Chem 7: 04/01/22 06:43 04/01/22 06:43 Labs: Abnormal Lab Results - Last 24 Hours (Table) 04/01/22 04/01/22 04/01/22 Range/Units 06:43 06:43 07:00 WBC 10.10 H (4.50-10.00) X 10*3/uL RBC 3.61 L (4.40-5.60) X 10*6/uL Hgb 10.9 L (13.0-17.0) g/dL Hct 33.5 L (39.6-50.0) % Eosinophils # 0.47 H (0.04-0.35) X 10*3/uL Sodium 134 L (135-145) mmol/L BUN 36.8 H (9.0-27.0) mg/dL Creatinine 2.7 H (0.6-1.5) mg/dL Est GFR (CKD-EPI)AfAm 28.4 L (60.0-200.0) Est GFR (CKD-EPI)NonAf 24.5 L (60.0-200.0) Urine Protein 2+ H (Negative) Urine Blood Large H (Negative) Ur Leukocyte Esterase Large H (Negative) Urine RBC >182 H (0-5) /hpf Urine WBC >182 H (0-5) /hpf Amorphous Sediment Rare H (None) /hpf Assessment and Plan Assessment: 1. Acute kidney injury secondary to obstructive uropathy with bilateral hydronephrosis noted on CT of the abdomen currently with indwelling Gallagher catheter. Urology has been consulted. UA shows more than 182 WBCs and RBCs. Possible bladder rupture/leak. Status post removal of Gallagher catheter with plans for straight catheterization at home 2. History of hypertension, blood pressure currently elevated most likely secondary to pain. Maintained on metoprolol and has been on amlodipine previously 3. Bilateral hydronephrosis most likely associated with bladder outlet obstruction with enlarged prostate. Urology on consult. Currently with indwelling Gallagher catheter 4. Pyuria rule out UTI, complaining of abdominal pain and vague urinary symptoms. Urine culture did not show any significant growth. 5. Metabolic acidosis associated with acute kidney injury Plan: Okay to discharge patient from nephrology standpoint. Needs follow-up in 1-2 weeks post discharge with nephrology and urology.
--- NOTE | 2022-04-01 20:47 | PN ---
PROGRESS NOTE DATE OF SERVICE: 03/31/2022 SUBJECTIVE: This is a 61-year-old gentleman who was admitted with acute urinary tract infection with bladder retention, is being evaluated for any rupture. Cystogram has been repeated. No chest pain. No palpitations. No fever. White count is normalized. OBJECTIVE: VITAL SIGNS: Pulse is 60, blood pressure is 120/70, respirations 15. CHEST: Clear to auscultation. CARDIOVASCULAR: S1, S2. ABDOMEN: Soft, nontender. LABS: WBC 9.7. Creatinine is 2.57, which is improved. Cultures are negative so far. ASSESSMENT: 1. Possible acute urinary tract infection with bladder retention, present on admission. 2. Acute kidney injury. 3. Rule out bladder leak or rupture. 4. Atrial fibrillation. 5. Hypertension. 6. Multiple medical issues. RECOMMENDATIONS: Recommend to continue current management and symptomatic treatment. Closely follow with Infectious Disease as well as Urology. Continue the antibiotics. Repeat labs tomorrow. Further recommendations to follow. MMODL / IJN: [id number] /
--- NOTE | 2022-04-02 19:11 | P.DS ---
Providers Date of admission: 03/28/22 06:34 Expected date of discharge: 04/01/22 Attending physician: Lalito Bonilla MD Consults: 03/28/22 06:32 Consult Physician Routine Consulting Provider: Joseph Retana Consult Reason/Comments: Urinary retention. Bladder rupture Do you want consulting provider notified?: Already Contacted Consult Physician Routine Consulting Provider: Betina Williamson Consult Reason/Comments: Acute kidney injury Do you want consulting provider notified?: Yes 03/28/22 12:15 Consult Physician Routine Consulting Provider: Demetrius Guzmán Consult Reason/Comments: sepsis Do you want consulting provider notified?: Yes Primary care physician: Bertha Olea [facility] Course: Final diagnosis Acute urinary tract infection, present on admission with bladder retention Acute kidney injury Ruled out bladder rupture per urology Atrial fibrillation history Hypertension Continued ongoing nicotine dependence GI and DVT prophylaxis Full code Discharge disposition Patient is being discharged in a stable condition with guarded prognosis to home. Patient will follow-up with Dr. Olea in the outpatient setting upon discharge. Patient is to continue with ceftin for the next few days to complete the course. Follow up with urology outpatient as scheduled. Total time taken is greater than 35 minutes. Hospital course This is a 61-year-old male who was recently admitted with abdominal pain and urinary retention and was being closely monitored. UTI as well and required indwelling bradley catheter and underwent cystogram with urology and nephrology following. ID following as well and was treated for UTI. Hydronephrosis and tyler during admission. Kidney functions trending down and will need repeat labs in a few days. Patient is to continue with straight catheterization and urology follow up. Patient may need cystoscope outpatient. Script provided for labs. Recommend nephrology follow up. Patient has been cleared by nephrology and urology and patient is ansious to leave. Currently no reports of chest pain, shortness of breath, or palpitations. Patient is afebrile. No reports of nausea or vomiting and patient is tolerating diet. Patient will be discharged home today. Guarded prognosis. Physical exam: Gen: This is a 61 year old male who is awake, alert and oriented x3. Thin built elderly appearing male. HEENT: Head is atraumatic, normocephalic. Pupils equal, round. Sclerae is anicteric. NECK: Supple. No JVD. No lymphadenopathy. No thyromegaly. LUNGS: diminished breath sounds bilaterally with no wheezes or rhonchi. No int ercostal retractions. HEART: S1, S2 muffled ABDOMEN: Soft. Bowel sounds are present. No masses. No tenderness. EXTREMITIES: No pedal edema. No calf tenderness. NEUROLOGICAL: Patient is awake, alert and oriented x3. Cranial nerves 2 through 12 are grossly intact. Please refer to medication reconciliation sheet for a list of medications. The impression and plan of care has been dictated by Maria Luz Luna, Nurse Practitioner as directed. Dr. Acosta MD I have performed a history and examination and MDM of this patient, discussed the same with the dictator, and agree with the dictator's assessment and plan as written ,documented as a scribe. Based on total visit time, I have performed more than 50% of the visit. Patient Condition at Discharge: Fair Plan - Discharge Summary Discharge Rx Participant: No New Discharge Prescriptions: New cefUROXime axetiL [Ceftin] 500 mg PO BID 7 Days #14 tab Tamsulosin [Flomax] 0.4 mg PO BID 30 Days #60 cap HYDROcodone/APAP 5-325MG [[place]anett 5-325] 1 each PO Q6HR PRN #9 tab PRN Reason: Pain Acetaminophen Tab [Tylenol] 650 mg PO Q6HR PRN tab PRN Reason: Mild Pain Or Fever > 100.5 Oxybutynin Xl [Ditropan XL] 10 mg PO DAILY 30 Days #60 tab Continue Metoprolol Tartrate [Lopressor] 50 mg PO BID Discharge Medication List Metoprolol Tartrate [Lopressor] 50 mg PO BID 03/28/22 [History] Acetaminophen Tab [Tylenol] 650 mg PO Q6HR PRN tab 04/01/22 [Rx] HYDROcodone/APAP 5-325MG [Lanett 5-325] 1 each PO Q6HR PRN #9 tab 04/01/22 [Rx] Oxybutynin Xl [Ditropan XL] 10 mg PO DAILY 30 Days #60 tab 04/01/22 [Rx] Tamsulosin [Flomax] 0.4 mg PO BID 30 Days #60 cap 04/01/22 [Rx] cefUROXime axetiL [Ceftin] 500 mg PO BID 7 Days #14 tab 10/21/22 [Rx] Follow up Appointment(s)/Referral(s): Varsha Aceves MD [STAFF PHYSICIAN] - 1 Week Augie Epps MD [STAFF PHYSICIAN] - 2 Weeks Bertha Olea MD [Primary Care Provider] - 1-2 days (patient to call for follow up appt) Ambulatory/Diagnostic Orders: Complete Blood Count w/diff [LAB.AMB] Time Frame: 3 Days, Location: None Selected Patient Instructions/Handouts: Cefuroxime (By mouth), Oxybutynin (By mouth), Tamsulosin (By mouth), Narcotic-Analgesic/Acetaminophen (By mouth), Acute Kidney Injury (DC), Urinary Retention in Men (GEN), How to Catheterize Yourself (Man) (GEN) Activity/Diet/Wound Care/Special Instructions: Activity Limited until follow-up Follow-up with urology this week Follow-up with primary care provider Follow-up with nephrology Recommend repeat labs in the next 2-3 days Continue with straight catheterization Discharge Disposition: HOME SELF-CARE
== END 2022-04-01 12:36 | disposition home or self-care (01) | DRG 690 ==
LOC: EC 03:30 → 5NMEDONC 06:34
PROVIDERS: ADMIT Internal Medicine; ATTEND Internal Medicine
PROC: BT101ZZ Fluoroscopy of Bladder using Low Osmolar Contrast (ICD-10-PCS; principal; 2022-03-31)
DX: N13.6 Pyonephrosis (principal); E87.20 Acidosis, unspecified; N13.8 Other obstructive and reflux uropathy; N17.9 Acute kidney failure, unspecified; I48.91 Unspecified atrial fibrillation; F15.11 Other stimulant abuse, in remission; Z28.310 Unvaccinated for COVID-19; I10 Essential (primary) hypertension; N40.1 Benign prostatic hyperplasia with lower urinary tract symptoms; N32.0 Bladder-neck obstruction; R31.0 Gross hematuria; N39.498 Other specified urinary incontinence; R33.8 Other retention of urine; R35.0 Frequency of micturition; Z79.899 Other long term (current) drug therapy
CPT/HCPCS: 36415; 72192; 74176; 74430; 80048; 80053; 81001; 82150; 83605; 83690; 85025; 85610; 87086; 96361; 96365; 96375; 99285

== ENCOUNTER 2022-11-13 20:31 | Inpatient (IN) | payer OTHER ==
[2022-11-13 20:39] LABS: Glucose,Whole Blood 104 mg/dL (70-110)
[2022-11-13] MEDS ORDERED: TRANEXAMIC ACID IN NACL,ISO-OS 1,000 MG in SALINE 1 100ML.BAG IV STA (20:42)
[2022-11-13] MEDS ORDERED: DIPH,PERTUS(ACELL)TETVAC-LF 0.5 ML VIAL IM ONE (20:42)
[2022-11-13] MEDS ORDERED: SODIUM CHLORIDE 0.9% 1,000 ML IV STA (20:42)
[2022-11-13 21:02] LABS: Basophils % (A) 1 %; Eosinophils # (A) 0.3 k/uL (0-0.7); Eosinophils % (A) 6 %; HCT 41.3 % (39.0-53.0); HGB 13.6 gm/dL (13.0-17.5); Lymphocytes # (A) 1.9 k/uL (1.0-4.8); Lymphocytes % (A) 35 %; MCH 30.8 pg (25.0-35.0); MCHC 32.9 g/dL (31.0-37.0); MCV 93.5 fL (80.0-100.0); Mean Platelet Volume 8.8; Monocytes # (A) 0.4 k/uL (0-1.0); Monocytes % (A) 7 %; Neutrophils # (A) 2.6 k/uL (1.3-7.7); Neutrophils % (A) 49 %; Platelet Count 231 k/uL (150-450); RBC 4.42 m/uL (4.30-5.90); RDW 13.6 % (11.5-15.5); WBC 5.4 k/uL (3.8-10.6)
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
[2022-11-13 21:08] LABS: Partial Thromboplastin Time 22.8 sec (22.0-30.0); Prothrombin Time 10.3 sec (9.0-12.0)
[2022-11-13 21:09] LABS: ALT 16 U/L (4-49); AST 19 U/L (17-59); African American GFR (CKD) 30 (>60 ml/min/1.73 sqM); Albumin 4.2 g/dL (3.5-5.0); Alkaline Phosphatase 76 U/L (38-126); Anion Gap 13 mmol/L; Blood Urea Nitrogen 39 mg/dL (9-20); Calcium 8.8 mg/dL (8.4-10.2); Carbon Dioxide 18 mmol/L (22-30); Chloride 107 mmol/L (98-107); Glucose 105 mg/dL (74-99); Non-African American GFR(CKD) 26 (>60 ml/min/1.73 sqM); Potassium 4.5 mmol/L (3.5-5.1); Sodium 138 mmol/L (137-145)
--- NOTE | 2022-11-13 21:14 | XR ---
EXAMINATION TYPE: XR pelvis AP view DATE OF EXAM: 11/13/2022 8:51 PM INDICATION: Patient age:Male; 62 years old; Reason for study: Trauma; [facility]. COMPARISON: No relevant priors TECHNIQUE: AP view of the pelvis. FINDINGS: No evidence of any acute osseous pathology, joint dislocation, or soft tissue swelling. Mul tiple phleboliths are noted within the pelvis. Mild joint space narrowing and degenerative changes of the hip joints bilaterally. IMPRESSION: 1. No acute osseous pathology. 2. Osteoporosis of the bilateral hip joints.
[2022-11-13 21:20] LABS: Alcohol 112 mg/dL
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
[2022-11-13] MEDS ORDERED: NALOXONE 0.4 MG/ML 1 ML VIAL IV PRN (21:30)
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
[2022-11-13] MEDS ORDERED: ePHEDrine 50 MG/ML 1 ML VIAL ONE (22:05)
[2022-11-13] MEDS ORDERED: GLYCOPYRROLATE 0.2 MG/ML 2 ML VIAL ONE (22:05)
[2022-11-13] MEDS ORDERED: PROPOFOL 10 MG/ML 20 ML VIAL IV ONE (22:05)
[2022-11-13] MEDS ORDERED: SUCCINYLCHOLINE CHLORIDE 200 MG/10 ML VIAL IV ONE (22:05)
[2022-11-13] MEDS ORDERED: ROCURONIUM 10 MG/ML (5 ML VIAL) IV ONE (22:05)
[2022-11-13] MEDS ORDERED: MIDAZOLAM 2 MG/2 ML VIAL ONE (22:05)
[2022-11-13] MEDS ORDERED: NEOSTIGMINE 1 MG/ML 10 ML VIAL ONE (22:05)
[2022-11-13] MEDS ORDERED: fentaNYL (PF) 50 MCG/ML 2 ML AMP ONE (22:05)
[2022-11-13] MEDS ORDERED: LACTATED RINGERS 1,000 ML IV ONE (22:05)
[2022-11-13] MEDS ORDERED: LIDOCAINE 2% INJ 20 MG/ML (2 ML VIAL) ONE (22:05)
[2022-11-13] MEDS ORDERED: HEPARIN SODIUM (1,000 UNIT/ML) 2,000 UNIT in SODIUM CHLORIDE 0.9% 1,000 ML IRRIGATION ONE (22:34)
[2022-11-13] MEDS ORDERED: ceFAZolin 2,000 MG in SODIUM CHLORIDE 0.9% 500 ML IRRIGATION ONE (22:34)
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
[2022-11-13] MEDS ORDERED: MAG HYDROX/AL HYDROX/SIMETH 30 ML CUP PO PRN (23:59)
[2022-11-13] MEDS ORDERED: BENZOCAINE/MENTHOL LOZENG 1 EACH LOZENGE MUCOUS MEM PRN (23:59)
[2022-11-13] MEDS ORDERED: ACETAMINOPHEN TAB 325 MG TAB PO PRN (23:59)
[2022-11-13] MEDS ORDERED: TRIMETHOBENZAMIDE 100 MG/ML 2 ML VIAL IM PRN (23:59)
[2022-11-14] MEDS ORDERED: MORPHINE SULFATE 2 MG/ML SYRINGE IVP PRN (00:02)
[2022-11-14] MEDS ORDERED: LACTATED RINGERS 1,000 ML IV ONE (00:20)
[2022-11-14 00:41] LABS: Glucose,Whole Blood 91 mg/dL (70-110)
[2022-11-14] MEDS: LACTATED RINGERS 1,000 ML IV SCH ×2 (00:48→10:31)
[2022-11-14] MEDS ORDERED: HYDROmorphone 0.5 MG/0.5 ML SYRINGE IVP STA (01:36)
[2022-11-14 02:15] LABS: Amphetamine Screen,Urine Detected (NotDetected); Barbiturate Screen,Urine Not Detected (NotDetected); Benzodiazepines Screen,Urine Not Detected (NotDetected); Cocaine Screen,Urine Not Detected (NotDetected); Methadone Screen, Urine Not Detected (NotDetected); Opiate Screen,Urine Detected (NotDetected); Oxycodone Screen, Urine Not Detected (NotDetected); Phencyclidine Screen,Urine Not Detected (NotDetected); Tricyclic Antidepressant,Urine Not Detected (NotDetected); Urn Cannabinoid Scrn Not Detected (NotDetected)
[2022-11-14 02:16] LABS: Basophils % (A) 0 %; Eosinophils # (A) 0.1 k/uL (0-0.7); Eosinophils % (A) 1 %; HCT 37.6 % (39.0-53.0); HGB 12.3 gm/dL (13.0-17.5); Lymphocytes # (A) 0.6 k/uL (1.0-4.8); Lymphocytes % (A) 6 %; MCH 30.7 pg (25.0-35.0); MCHC 32.8 g/dL (31.0-37.0); MCV 93.6 fL (80.0-100.0); Mean Platelet Volume 9.2; Monocytes # (A) 0.4 k/uL (0-1.0); Monocytes % (A) 3 %; Neutrophils % (A) 89 %; Platelet Count 200 k/uL (150-450); RBC 4.02 m/uL (4.30-5.90); RDW 13.7 % (11.5-15.5); WBC 11.3 k/uL (3.8-10.6)
[2022-11-14] MEDS ORDERED: LORazepam 2 MG/ML INJ IV PRN ×2 (02:51)
[2022-11-14] MEDS ORDERED: THIAMINE 100 MG/ML 2 ML VIAL IM STA (02:51)
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
[2022-11-14] MEDS: HYDROmorphone 1 MG/ML 1 ML SYRINGE IVP PRN ×3 (03:10→19:50)
--- NOTE | 2022-11-14 04:47 | CT ---
EXAM: CT Chest Without Intravenous Contrast CLINICAL HISTORY: Chest and abdominal pain with recent trauma and fall TECHNIQUE: Axial computed tomography images of the chest without intravenous contrast. CTDI is 5 mGy and DLP is 427 mGy-cm. This CT exam was performed using one or more of the following dose reduction techniques: automated exposure control, adjustment of the mA and/or kV according to patient size, and/or use of iterative reconstruction technique. COMPARISON: No relevant prior studies available. FINDINGS: Lungs: Posterior dependent subsegmental atelectasis in the lower lobes. Pleural space: Unremarkable. No pneumothorax. No significant effusion. Heart: Unremarkable. No cardiomegaly. No significant pericardial effusion. No significant coronary artery calcifications. Thyroid: Heterogeneous low density areas in the thyroid gland bilaterally. Bones/joints: Unremarkable. No acute fracture. No dislocation. Soft tissues: Abnormal scattered soft tissue air in the lower left neck. Vasculature: Unremarkable. No thoracic aortic aneurysm. Lymph nodes: Unremarkable. No enlarged lymph nodes. IMPRESSION: Abnormal scattered air collections within the soft tissues of the lower left neck. No other acute findings in the thorax. EXAM: CT Abdomen and Pelvis Without Intravenous Contrast CLINICAL HISTORY: Chest and abdominal pain with recent trauma and fall TECHNIQUE: Axial computed tomography images of the abdomen and pelvis without intravenous contrast. CTDI is 5 mGy and DLP is 427 mGy-cm. This CT exam was performed using one or more of the following dose reduction techniques: automated exposure control, adjustment of the mA and/or kV according to patient size, and/or use of iterative reconstruction technique. COMPARISON: CT March 28, 2022 distended gallbladder. There is some high density material in the gallbladder which may represent sludge. FINDINGS: ABDOMEN: Liver: Unremarkable. Gallbladder and bile ducts: Unremarkable. No calcified stones. No ductal dilation. Pancreas: Unremarkable. No ductal dilation. Spleen: Unremarkable. No splenomegaly. Adrenals: Unremarkable. No mass. Kidneys and ureters: Very extensive cortical scarring in both kidneys. There is no significant hydronephrosis; however, there is dilatation of the left ureter. Contrast is seen within the collecting systems from previous administration. Stomach and bowel: Unremarkable. No obstruction. No mucosal thickening. PELVIS: Appendix: No findings to suggest acute appendicitis. Bladder: A Gallagher catheter is seen in the bladder. Contrast is seen within the bladder lumen. There is no extravasated urinary contrast. The bladder wall is thickened and there is extensive infiltration in the fat surrounding the bladder. No stones. Reproductive: Unremarkable as visualized. ABDOMEN and PELVIS: Intraperitoneal space: Unremarkable. No free air. No significant fluid collection. Bones/joints: No acute fracture. No dislocation. Soft tissues: Unremarkable. Vasculature: Unremarkable. No abdominal aortic aneurysm. Lymph nodes: Unremarkable. No enlarged lymph nodes. IMPRESSION: No evidence of acute trauma to the abdomen and pelvis. Markedly abnormal appearance to the bladder with bladder wall thickening and infiltration in the fat surrounding the bladder. No extravasated contrasted urine is seen. There is associated left hydroureter.
[2022-11-14 04:51] LABS: ALT 14 U/L (4-49); AST 26 U/L (17-59); African American GFR (CKD) 32 (>60 ml/min/1.73 sqM); Albumin 3.9 g/dL (3.5-5.0); Alkaline Phosphatase 79 U/L (38-126); Anion Gap 15 mmol/L; Blood Urea Nitrogen 38 mg/dL (9-20); Calcium 8.7 mg/dL (8.4-10.2); Carbon Dioxide 15 mmol/L (22-30); Chloride 107 mmol/L (98-107); Glucose 86 mg/dL (74-99); Non-African American GFR(CKD) 28 (>60 ml/min/1.73 sqM); Potassium 4.4 mmol/L (3.5-5.1); Sodium 137 mmol/L (137-145); Total Bilirubin 1.3 mg/dL (0.2-1.3); Total Protein 6.5 g/dL (6.3-8.2)
[2022-11-14 07:21] LABS: Basophils % (A) 0 %; Eosinophils # (A) 0.1 k/uL (0-0.7); Eosinophils % (A) 0 %; HCT 39.9 % (39.0-53.0); HGB 12.8 gm/dL (13.0-17.5); Lymphocytes # (A) 0.5 k/uL (1.0-4.8); Lymphocytes % (A) 4 %; MCH 30.3 pg (25.0-35.0); MCHC 31.9 g/dL (31.0-37.0); MCV 94.8 fL (80.0-100.0); Mean Platelet Volume 8.9; Monocytes # (A) 0.7 k/uL (0-1.0); Monocytes % (A) 5 %; Neutrophils # (A) 13.4 k/uL (1.3-7.7); Neutrophils % (A) 90 %; Platelet Count 172 k/uL (150-450); RBC 4.22 m/uL (4.30-5.90); RDW 13.8 % (11.5-15.5); WBC 14.9 k/uL (3.8-10.6)
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
[2022-11-14] MEDS: TAMSULOSIN 0.4 MG CAP.ER.24H PO SCH (10:30)
[2022-11-14] MEDS: METOPROLOL SUCCINATE (ER) 100 MG TAB.ER.24H PO SCH (10:30)
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
[2022-11-14] MEDS: HYDROcodone/APAP 5-325MG 1 EACH TAB PO PRN ×2 (12:19→23:23)
[2022-11-14] MEDS: ASPIRIN 81 MG PO SCH (12:20)
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
[2022-11-15] MEDS: HYDROcodone/APAP 5-325MG 1 EACH TAB PO PRN ×3 (05:35→20:28)
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
[2022-11-15] MEDS: ASPIRIN 81 MG PO SCH (09:46)
[2022-11-15] MEDS: METOPROLOL SUCCINATE (ER) 100 MG TAB.ER.24H PO SCH (09:46)
[2022-11-15] MEDS: THIAMINE 100 MG TAB PO SCH (09:46)
[2022-11-15] MEDS: TAMSULOSIN 0.4 MG CAP.ER.24H PO SCH (09:46)
[2022-11-15 12:50] LABS: HCT 34.2 % (39.0-53.0); HGB 11.2 gm/dL (13.0-17.5); MCHC 32.7 g/dL (31.0-37.0); MCV 94.5 fL (80.0-100.0); Mean Platelet Volume 9.3; Platelet Count 172 k/uL (150-450); RBC 3.61 m/uL (4.30-5.90); RDW 13.9 % (11.5-15.5); WBC 9.9 k/uL (3.8-10.6)
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
[2022-11-15] MEDS: LACTATED RINGERS 1,000 ML IV SCH (19:55)
[2022-11-15] MEDS: DOCUSATE 100 MG CAP PO SCH (20:28)
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
[2022-11-16] MEDS: HYDROcodone/APAP 5-325MG 1 EACH TAB PO PRN (09:53)
[2022-11-16] MEDS: DOCUSATE 100 MG CAP PO SCH (09:54)
[2022-11-16] MEDS: ASPIRIN 81 MG PO SCH (09:54)
[2022-11-16] MEDS: TAMSULOSIN 0.4 MG CAP.ER.24H PO SCH (09:54)
[2022-11-16] MEDS: METOPROLOL SUCCINATE (ER) 100 MG TAB.ER.24H PO SCH (09:54)
[2022-11-16] MEDS: THIAMINE 100 MG TAB PO SCH (09:54)
[2022-11-16 12:30] VITALS: BP 156/100; PULSE 52; RESP 16; TEMP 98.3
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
== END 2022-11-16 15:06 | disposition home or self-care (01) | DRG 364 ==
LOC: EC 20:31 → 2SICU 21:30 → 3SCARD 11-14 12:56
PROVIDERS: ADMIT Surgery Plastic and Reconstructive Surgery; ATTEND Surgery Plastic and Reconstructive Surgery
PROC: 0WJ60ZZ Inspection of Neck, Open Approach (ICD-10-PCS; 2022-11-13)
PROC: 0W360ZZ Control Bleeding in Neck, Open Approach (ICD-10-PCS; principal; 2022-11-13 21:30)
DX: S16.2XXA Laceration of muscle, fascia and tendon at neck level, initial encounter (principal); I13.10 Hypertensive heart and chronic kidney disease without heart failure, with stage 1 through stage 4 chronic kidney disease, or unspecified chronic kidney disease; I48.0 Paroxysmal atrial fibrillation; I77.71 Dissection of carotid artery; S15.092A Other specified injury of left carotid artery, initial encounter; J96.01 Acute respiratory failure with hypoxia; N18.4 Chronic kidney disease, stage 4 (severe); Z28.310 Unvaccinated for COVID-19; F10.129 Alcohol abuse with intoxication, unspecified; Y90.5 Blood alcohol level of 100-119 mg/100 ml; F15.10 Other stimulant abuse, uncomplicated; M25.532 Pain in left wrist; F11.10 Opioid abuse, uncomplicated; W10.9XXA Fall (on) (from) unspecified stairs and steps, initial encounter; Y92.009 Unspecified place in unspecified non-institutional (private) residence as the place of occurrence of the external cause; R00.1 Bradycardia, unspecified; Z60.2 Problems related to living alone; M19.90 Unspecified osteoarthritis, unspecified site; N13.4 Hydroureter; N40.0 Benign prostatic hyperplasia without lower urinary tract symptoms; R31.0 Gross hematuria; X99.1XXA Assault by knife, initial encounter; Z79.899 Other long term (current) drug therapy; Z87.01 Personal history of pneumonia (recurrent); Z88.6 Allergy status to analgesic agent
CPT/HCPCS: 36415; 70450; 70496; 70498; 71045; 71250; 72125; 72170; 74176; 76770; 80053; 80306; 80320; 84484; 85025; 85027; 85610; 85730; 86850; 86900; 86901; 90471; 90715; 93005; 93880; 94760; 96365; 96375; 99291

== ENCOUNTER 2022-11-28 13:41 | Emergency (ER) | payer OTHER ==
[2022-11-28 13:48] VITALS: RESP 18; TEMP 97.5
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
[2022-11-28 14:24] VITALS: BP 138/83; PULSE 54
== END 2022-11-28 14:39 | disposition home or self-care (01) ==
LOC: EC 13:41
DX: M70.21 Olecranon bursitis, right elbow (principal); I10 Essential (primary) hypertension; F15.90 Other stimulant use, unspecified, uncomplicated; Z79.899 Other long term (current) drug therapy; Z88.6 Allergy status to analgesic agent; Y04.0XXA Assault by unarmed brawl or fight, initial encounter
CPT/HCPCS: 99283

== ENCOUNTER 2023-03-30 18:16 | Emergency (ER) | payer OTHER ==
[2023-03-30 18:53] VITALS: BP 177/98; PULSE 54; RESP 16; TEMP 97.9
[2023-03-30 20:39] LABS: Bacteria,Urine Rare /hpf; RBC,Urine >182 /hpf (0-5); WBC,Urine >182 /hpf (0-5)
[2023-03-30 20:50] LABS: Appearance,Urine Bloody (Clear)
[2023-03-30 20:51] LABS: Color,Urine Red
== END 2023-03-30 20:43 | disposition left against medical advice (07) ==
LOC: EC 18:16
DX: Z53.21 Procedure and treatment not carried out due to patient leaving prior to being seen by health care provider (principal); R31.9 Hematuria, unspecified
CPT/HCPCS: 81001; 87086; 99499

== ENCOUNTER 2023-06-05 17:05 | Emergency (ER) | payer OTHER ==
[2023-06-05] MEDS ORDERED: FAMOTIDINE 20 MG/2 ML VIAL IV STA (17:33)
[2023-06-05] MEDS ORDERED: ONDANSETRON 4 MG/2 ML VIAL IVP STA (17:33)
[2023-06-05] MEDS ORDERED: SODIUM CHLORIDE 0.9% 1,000 ML IV STA ×2 (17:33→19:36)
[2023-06-05] MEDS ORDERED: HYDROmorphone 1 MG/ML 1 ML SYRINGE IVP STA (17:33)
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
[2023-06-05 19:12] LABS: Basophils % (A) 1 %; Eosinophils # (A) 0.1 k/uL (0-0.7); Eosinophils % (A) 1 %; HCT 42.5 % (39.0-53.0); Lymphocytes # (A) 0.2 k/uL (1.0-4.8); Lymphocytes % (A) 3 %; MCHC 32.8 g/dL (31.0-37.0); MCV 94.4 fL (80.0-100.0); Mean Platelet Volume 9.5; Monocytes # (A) 0.6 k/uL (0-1.0); Monocytes % (A) 8 %; Neutrophils # (A) 6.7 k/uL (1.3-7.7); Neutrophils % (A) 87 %; Platelet Count 178 k/uL (150-450); RDW 12.8 % (11.5-15.5); WBC 7.7 k/uL (3.8-10.6)
[2023-06-05 19:28] LABS: Appearance,Urine Cloudy (Clear); Bacteria,Urine Rare /hpf; Bilirubin,Urine Negative (Negative); Blood,Urine Moderate (Negative); Color,Urine Colorless; Glucose,Urine (UA) Negative (Negative); Ketones,Urine 1+ (Negative); Leukocyte Esterase,Urine Large (Negative); Mucus,Urine Rare /hpf; Nitrite,Urine Negative (Negative); Protein,Urine 1+ (Negative); RBC,Urine 38 /hpf (0-5); Specific Gravity,Urine 1.013 (1.001-1.035); Urobilinogen,Urine <2.0 mg/dL (<2.0); WBC,Urine 127 /hpf (0-5)
[2023-06-05 19:30] LABS: ALT 14 U/L (4-49); AST 18 U/L (17-59); African American GFR (CKD) 40 (>60 ml/min/1.73 sqM); Albumin 3.7 g/dL (3.5-5.0); Alkaline Phosphatase 93 U/L (38-126); Amylase 54 U/L (30-110); Anion Gap 11 mmol/L; Blood Urea Nitrogen 23 mg/dL (9-20); Calcium 9.3 mg/dL (8.4-10.2); Carbon Dioxide 18 mmol/L (22-30); Chloride 107 mmol/L (98-107); Glucose 124 mg/dL (74-99); Lipase 77 U/L (23-300); Non-African American GFR(CKD) 34 (>60 ml/min/1.73 sqM); Potassium 4.1 mmol/L (3.5-5.1); Sodium 136 mmol/L (137-145); Total Bilirubin 1.1 mg/dL (0.2-1.3); Total Protein 6.5 g/dL (6.3-8.2)
[2023-06-05 19:35] LABS: INR 0.9 (<1.2); Partial Thromboplastin Time 25.2 sec (22.0-30.0); Prothrombin Time 10.1 sec (10.0-12.5)
--- NOTE | 2023-06-05 20:37 | CT ---
EXAMINATION TYPE: CT abdomen pelvis w con DATE OF EXAM: 06/05/2023 COMPARISON: 11/14/2022 HISTORY: 62-year-old male Severe abdominal pain. Recent prostate problems, Pantoja in place. TECHNIQUE: Contiguous axial scanning of the abdomen and pelvis following administration of 70 ml Isov ue 300 IV contrast. Delayed images through the kidneys and coronal/sagittal reconstructions performe d. CT DLP: 790.1 mGycm Automated exposure control for dose reduction was used. FINDINGS: Heart borderline in size without pericardial effusion. Prominent dependent atelectasis at t he visualized lung bases. No focal liver lesion or biliary duct dilatation. Portal venous system is patent. Gallbladder, adrenal glands, spleen, and pancreas show no gross abnormality. There is mild fold thickening along the fundus and proximal to mid gastric body, axial image 21 and 2 2 for which further clinical correlation is recommended. Markedly lobulated renal contour. Extrarenal pelvis on both sides. Retroaortic left renal vein. No dilated small bowel or free air. No mesenteric or retroperitoneal adenopathy. Mild stool burden. No pericolonic inflammatory change. Pantoja catheter is in place collapsing the bladder. However, there is moderate to severe bladder wall thickening with perivesicular fat stranding. Prostate gland upper limits of normal in size and 3.9 cm with central calcifications. No abnormal fluid collection in the pelvis or pelvic lymphadenopathy. Bones: Facet arthropathy lower lumbar spine. Mild degenerative disc disease lower thoracic spine. Mil d degenerative change both hips. IMPRESSION: 1. MODERATE TO SEVERE BLADDER WALL THICKENING WITH PERIVESICULAR FAT STRANDING. CORRELATE FOR A SEVER E CYSTITIS THOUGH NOT SEVERE ON 11/14/2022. PANTOJA CATHETER IN PLACE. 2. FOLD THICKENING INVOLVING THE GASTRIC FUNDUS AND PROXIMAL TO MID GASTRIC BODY. CORRELATE FOR POSSI BLE CHRONIC GASTRITIS.
[2023-06-05] MEDS ORDERED: cefTRIAXone IN SWFI 1,000 MG/10 ML SYRINGE IVP STA (20:42)
[2023-06-05] MEDS ORDERED: ONDANSETRON 4 MG ODT STARTER PACK 2 TAB BTL PO STA (21:00)
[2023-06-05 21:41] VITALS: TEMP 97.7
[2023-06-05] MEDS ORDERED: LORazepam 2 MG/ML INJ IV STA (21:43)
[2023-06-05 22:03] VITALS: BP 173/97; PULSE 68; RESP 22
== END 2023-06-05 22:25 | disposition home or self-care (01) ==
LOC: EC 17:05
DX: K29.70 Gastritis, unspecified, without bleeding (principal); N30.90 Cystitis, unspecified without hematuria; I10 Essential (primary) hypertension; F15.90 Other stimulant use, unspecified, uncomplicated; Z79.899 Other long term (current) drug therapy; Z88.6 Allergy status to analgesic agent; Z87.891 Personal history of nicotine dependence
CPT/HCPCS: 36415; 80053; 82150; 83605; 83690; 85025; 85610; 85730; 81001; 74177; 99285; 96374; 96375 ×4; 96361 ×4; J2060; J2405; J0696; J3490; J1170; S0119; Q9967

== ENCOUNTER 2024-04-18 09:14 | Emergency (ER) | payer OTHER ==
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
[2024-04-18 10:03] VITALS: TEMP 97.7
[2024-04-18 10:29] LABS: Appearance,Urine Clear (Clear); Bilirubin,Urine Negative (Negative); Blood,Urine Negative (Negative); Color,Urine Colorless; Glucose,Urine (UA) Negative (Negative); Ketones,Urine Negative (Negative); Leukocyte Esterase,Urine Moderate (Negative); Mucus,Urine Rare /hpf; Nitrite,Urine Negative (Negative); Protein,Urine Trace (Negative); RBC,Urine 1 /hpf (0-5); Specific Gravity,Urine 1.015 (1.001-1.035); Urobilinogen,Urine <2.0 mg/dL (<2.0); WBC,Urine 45 /hpf (0-5)
--- NOTE | 2024-04-18 10:34 | US ---
EXAMINATION TYPE: US kidneys/renal and bladder DATE OF EXAM: 04/18/2024 COMPARISON: CT 06/05/2023 CLINICAL INDICATION: Male, 63 years old with history of pain, gfr, retention; Hx HTN; Prostate surger y; Recent LLQ pain and nausea TECHNIQUE: Grayscale imaging of the bilateral kidneys and urinary bladder: FINDINGS: EXAM MEASUREMENTS: Right Kidney: 7.9 x 4.1 x 4.2 cm Left Kidney: 9.1 x 4.4 x 4.1 cm Post Void Residual Volume: NA mL Right Kidney: Normal renal tissue vs lesion upper lateral pole - 3.4 x 3.0 x 3.2 cm; Kidney appears l obulated. Consider repeat CT exam Left Kidney: Prominent renal pyramid Bladder: ? Thickened wall = 0.8 Bilateral Jets seen: Yes Normal Post Void Residual: NA IMPRESSION: 1. Possible superior pole left renal lesion is identified. Consider contrast CT abdomen for additiona l evaluation. 2. Thickening urinary bladder wall. Correlate for cystitis. [facility], , 04/18/2024 10:31 AM
[2024-04-18 10:37] LABS: Basophils # (A) 0.1 k/uL (0-0.2); Basophils % (A) 1 %; Eosinophils # (A) 0.3 k/uL (0-0.7); Eosinophils % (A) 4 %; HCT 44.2 % (39.0-53.0); HGB 14.5 gm/dL (13.0-17.5); Lymphocytes # (A) 1.4 k/uL (1.0-4.8); Lymphocytes % (A) 20 %; MCH 31.4 pg (25.0-35.0); MCHC 32.7 g/dL (31.0-37.0); MCV 96.1 fL (80.0-100.0); Mean Platelet Volume 8.3; Monocytes # (A) 0.5 k/uL (0-1.0); Monocytes % (A) 7 %; Neutrophils # (A) 4.4 k/uL (1.3-7.7); Neutrophils % (A) 66 %; Platelet Count 219 k/uL (150-450); RDW 13.4 % (11.5-15.5); WBC 6.6 k/uL (3.8-10.6)
[2024-04-18 10:45] LABS: INR 0.9 (<1.2); Prothrombin Time 10.1 sec (10.0-12.5)
[2024-04-18 10:46] LABS: Partial Thromboplastin Time 23.4 sec (22.0-30.0)
[2024-04-18 10:53] LABS: ALT 15 U/L (4-49); AST 25 U/L (17-59); African American GFR (CKD) 34 (>60 ml/min/1.73 sqM); Albumin 4.1 g/dL (3.5-5.0); Alkaline Phosphatase 64 U/L (38-126); Amylase 58 U/L (30-110); Anion Gap 6 mmol/L; Blood Urea Nitrogen 43 mg/dL (9-20); Calcium 9.7 mg/dL (8.4-10.2); Carbon Dioxide 19 mmol/L (22-30); Chloride 114 mmol/L (98-107); Glucose 92 mg/dL (74-99); Lipase 193 U/L (23-300); Non-African American GFR(CKD) 29 (>60 ml/min/1.73 sqM); Potassium 5.2 mmol/L (3.5-5.1); Sodium 139 mmol/L (137-145); Total Bilirubin 1.1 mg/dL (0.2-1.3); Total Protein 6.9 g/dL (6.3-8.2)
[2024-04-18] MEDS: hydrALAZINE HCL 20 MG/ML 1 ML VIAL IVP STA (11:25)
--- NOTE | 2024-04-18 11:25 | XR ---
EXAMINATION TYPE: XR KUB DATE OF EXAM: 04/18/2024 11:06 AM COMPARISON: None. CLINICAL INDICATION: Male, 63 years old with history of abdominal pain, TECHNIQUE: XR KUB view(s) obtained. FINDINGS: There is a nonspecific bowel gas pattern. Air within small bowel loops as well as the colon. No suspi cious differential air-fluid levels are present. No free air is evident. Psoas margins are normal. No organomegaly is present. IMPRESSION: 1. Nonspecific abdomen [facility], , 04/18/2024 11:23 AM
[2024-04-18] MEDS: SULFAMETHOX-TMP 800-160MG 1 EACH TAB PO STA (12:47)
[2024-04-18 12:49] VITALS: BP 157/92; PULSE 53; RESP 13
== END 2024-04-18 12:53 | disposition home or self-care (01) ==
LOC: EC 09:14
DX: N39.0 Urinary tract infection, site not specified (principal); Z88.6 Allergy status to analgesic agent; Z87.891 Personal history of nicotine dependence
CPT/HCPCS: 51798; 36415; 80053; 82150; 83690; 85025; 85610; 85730; 81001; 74018; 76770; 99284; 96374; J0360

== ENCOUNTER 2024-09-26 09:31 | Observation (INO) | payer OTHER ==
[2024-09-26] MEDS: NITROGLYCERIN OINT 1 INCH/GM PACKET TOPICAL STA (10:00)
[2024-09-26 10:02] LABS: Basophils # (A) 0.08 10*3/uL (0.00-0.10); Eosinophils % (A) 2.6 %; HCT 41.5 % (39.6-50.0); HGB 14.2 g/dL (13.0-17.0); Lymphocytes # (A) 1.17 10*3/uL (0.90-5.00); Lymphocytes % (A) 15.2 %; MCH 30.9 pg (27.0-32.0); MCHC 34.2 g/dL (32.0-37.0); MCV 90.4 fL (80.0-97.0); Mean Platelet Volume 10.4 fL (9.5-12.2); Monocytes # (A) 0.73 10*3/uL (0.20-1.00); Monocytes % (A) 9.5 %; Neutrophils # (A) 5.48 10*3/uL (1.80-7.70); Neutrophils % (A) 71.4 %; Platelet Count 267 10*3/uL (140-440); RBC 4.59 10*6/uL (4.40-5.60); RDW 13.8 % (11.5-14.5); WBC 7.68 10*3/uL (4.50-10.00)
--- NOTE | 2024-09-26 10:04 | XR ---
EXAMINATION TYPE: XR chest 2V DATE OF EXAM: 09/26/2024 9:57 AM COMPARISON: Chest radiographs from 11/13/2022 TECHNIQUE: XR chest 2V Frontal and lateral views of the chest. CLINICAL INDICATION:Male, 64 years old with history of Chest Pain; FINDINGS: Lungs/Pleura: There is no evidence of pleural effusion, focal consolidation, or pneumothorax. Pulmonary vascularity: Unremarkable. Heart/mediastinum: Cardiomediastinal silhouette is unremarkable. Musculoskeletal: No acute osseous pathology. Remote healed left midclavicular fracture. IMPRESSION: No acute cardiopulmonary disease/process. [facility], , 09/26/2024 10:02 AM
[2024-09-26 10:15] LABS: ALT 16 U/L (4-49); AST 20 U/L (17-59); African American GFR (CKD) 38 (>60 ml/min/1.73 sqM); Albumin 4.4 g/dL (3.5-5.0); Alkaline Phosphatase 104 U/L (38-126); Anion Gap 9 mmol/L; Blood Urea Nitrogen 29 mg/dL (9-20); Carbon Dioxide 19 mmol/L (22-30); Chloride 108 mmol/L (98-107); Glucose 99 mg/dL (74-99); Non-African American GFR(CKD) 33 (>60 ml/min/1.73 sqM); Potassium 4.5 mmol/L (3.5-5.1); Sodium 136 mmol/L (137-145); Total Bilirubin 1.6 mg/dL (0.2-1.3); Total Protein 7.1 g/dL (6.3-8.2)
[2024-09-26 10:20] LABS: Partial Thromboplastin Time 24.1 sec (22.0-30.0); Prothrombin Time 10.9 sec (10.0-12.5)
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
[2024-09-26] MEDS ORDERED: NITROGLYCERIN SL TABS 0.4 MG TAB SUBLINGUAL PRN (10:53)
[2024-09-26] MEDS: NITROGLYCERIN OINT 1 INCH/GM PACKET TOPICAL SCH (11:00)
[2024-09-26] MEDS: ONDANSETRON 4 MG/2 ML VIAL IVP STA (11:41)
[2024-09-26] MEDS: amLODIPine 5 MG TAB PO SCH (12:06)
[2024-09-26] MEDS: carvediloL 12.5 MG TAB PO SCH (12:06)
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
[2024-09-26] MEDS: VALSARTAN 40 MG TAB PO SCH (21:04)
[2024-09-26] MEDS: HEPARIN SODIUM,PORCINE 5,000 UNIT/ML 1 ML VIAL SQ SCH (21:04)
[2024-09-26 22:10] LABS: NT-Pro-B-Type Natriuretic Pept 633 pg/mL (0-125)
[2024-09-27 07:58] VITALS: BP 132/85
[2024-09-27 08:14] VITALS: PULSE 55; RESP 17; TEMP 97.7
[2024-09-27 08:38] LABS: BUN/Creat Ratio 15.48 Ratio (12.00-20.00); Blood Urea Nitrogen 32.5 mg/dL (9.0-27.0); Carbon Dioxide 22.2 mmol/L (21.6-31.8); Chloride 105 mmol/L (96-109); Chol/HDL Ratio 2.72 Ratio; Glucose 116 mg/dL (70-110); LDL Cholesterol,Calculated 87.8 mg/dL (0.0-131.0); Potassium 4.3 mmol/L (3.5-5.5); Sodium 138 mmol/L (135-145); VLDL Calculation 19.82 mg/dL (5.00-40.00)
--- NOTE | 2024-09-27 08:44 | P.PN ---
Subjective Progress Note Date: 09/27/24 History of present illness: This is a 64-year-old male patient with past medical history of hypertension, paroxysmal atrial fibrillation status post PVI in 2017, sick sinus syndrome. We have been asked to evaluate the patient for chest pain. Patient states that he has been feeling for a long time like his heart is jumping and he can feel palpitations from his atrial fibrillation he states it got really bad this morning and he came into the hospital. He states that on his way here it did improve worsened again when he was in the wheelchair being wheeled back to his room and then improved again. He denies chest pain or chest pressure but he did have it when he was having the fluttering sensation. He was not previously on anticoagulation due to CHADS2 score of 1. Patient denies smoking. He states he drank quite a bit last evening. He denies marijuana or illicit drug use. Patient was seen in the office on 09/03 and is scheduled for Lexiscan Cardiolite stress test and a Holter monitor. Patient states that he completed the Holter monitor. Patient is currently in a sinus rhythm on telemetry. Blood pressure 146/97, heart rate in the 60s, pulse ox 90% on room air. -EKG: Sinus rhythm 68 bpm, no acute ST changes. -Chest x-ray: No acute process -Laboratory studies: CBC within normal limits. Sodium 136, potassium 4.5, BUN 29 and creatinine 2.07 which is patient's baseline. Troponin negative x 2.. -Home cardiac medications: Amlodipine 5 mg daily, carvedilol 12.5 mg twice daily, valsartan 40 mg at bedtime. - Holter monitor performed 05/16 - 05/23/2024 revealed sinus mechanism, heart rates 48-110 with average of 66 beats a minute. 5 brief runs of nonsustained SVT longest being 9 beats. - Echocardiogram performed in the office on 05/25/2024 revealed EF greater than 65%, mild concentric left ventricular hypertrophy. Mild aortic regurgitation. Mild mitral regurgitation, mild tricuspid regurgitation. PASP 27 mmHg. - Lexiscan stress test performed 10/28/2015 was normal. 09/27 Patient seen and examined. TSH 1.18, A1c 5.5, BNP 633. Triglycerides 99, cholesterol 170, LDL 87. Upon review of telemetry, no arrhythmias noted, no atrial fibrillation. Dr. Goyal discussed with the patient need to decrease or eliminate alcohol intake which may be the contributing factor to his symptoms. Patient concerned that he still having symptoms. Discussed option of a loop recorder that can be addressed in the office. Physical examination: Gen: This is a 64-year-old male in no acute distress. VS: reviewed HEENT: Head is atraumatic, normocephalic. Pupils equal, round. Sclerae is anicteric. NECK: Supple. No JVD. LUNGS: Clear to auscultation. No wheezes or rhonchi. No intercostal retractions. HEART: Regular rate and rhythm. No murmur. ABDOMEN: Soft No tenderness. EXTREMITIES: No pedal edema. No calf tenderness. NEUROLOGICAL: Patient is awake, alert and oriented x3. Assessment: Palpitations/fluttering Hypertension Paroxysmal atrial fibrillation status post PVI in 2017 History of sick sinus syndrome Alcohol use CKD Plan: Continue patient's home cardiac medications No indication to start anticoagulation at this time Patient is scheduled for outpatient stress test next Patient is cleared for discharge from cardiology May follow-up with Dr. Ernst in the office as scheduled and complete stress test that is scheduled. Nurse practitioner note has been reviewed, I agree with documented findings and plan of care. Patient was seen and examined. Objective - Vital Signs Vital signs: Vital Signs Temp 97.7 F 09/27/24 08:13 Pulse 55 L 09/27/24 08:13 Resp 17 09/27/24 08:13 BP 132/85 09/27/24 08:13 Pulse Ox 96 09/27/24 08:13 FiO2 Intake & Output 09/26/24 09/27/24 09/27/24 18:59 06:59 18:59 Weight 79.379 kg Other: # Voids 1 2 - Labs CBC & Chem 7: 09/26/24 09:45 09/27/24 04:02 Labs: Abnormal Lab Results - Last 24 Hours (Table) 09/26/24 09/26/24 Range/Units 09:45 09:45 Sodium 136 L (137-145) mmol/L Chloride 108 H (98-107) mmol/L Carbon Dioxide 19 L (22-30) mmol/L BUN 29 H (9-20) mg/dL Creatinine 2.07 H (0.66-1.25) mg/dL Total Bilirubin 1.6 H (0.2-1.3) mg/dL NT-Pro-B Natriuret Pep 633 H (0-125) pg/mL
[2024-09-27] MEDS ORDERED: ASPIRIN 325 MG TAB PO SCH (09:00)
[2024-09-27] MEDS: ASPIRIN 81 MG PO SCH (09:58)
== END 2024-09-27 13:53 | disposition home or self-care (01) ==
LOC: EC 09:31 → 6NMEDSUR 10:54
PROVIDERS: ADMIT Internal Medicine; ATTEND Internal Medicine
DX: I48.0 Paroxysmal atrial fibrillation (principal); I49.3 Ventricular premature depolarization; I13.10 Hypertensive heart and chronic kidney disease without heart failure, with stage 1 through stage 4 chronic kidney disease, or unspecified chronic kidney disease; N18.30 Chronic kidney disease, stage 3 unspecified; I08.3 Combined rheumatic disorders of mitral, aortic and tricuspid valves; I49.5 Sick sinus syndrome; F10.90 Alcohol use, unspecified, uncomplicated; F15.90 Other stimulant use, unspecified, uncomplicated; Z79.899 Other long term (current) drug therapy; Z88.6 Allergy status to analgesic agent; Z87.891 Personal history of nicotine dependence; Z98.890 Other specified postprocedural states
CPT/HCPCS: 96372 ×2; 99285; 36415; 93005; 83880; 80061; 80053; 80048; 84443; 83735; 84484; 85025; 85610; 85730; 83036; 71046; G0378 ×2; J1644 ×2